=== PATIENT | female | born 1950 | race Caucasian/White ===

== ENCOUNTER 2017-09-09 01:15 | Inpatient (IN) | payer OTHER, MEDICARE ==
[2017-09-09] VITALS (25 sets, daily range): BP systolic 114–198; BP diastolic 51–83; PULSE 68–89; RESP 15; TEMP 98.3–99.5; O2SAT 97–100
[~2017-09-09] VITALS: Ht 152.4 cm; Wt 70.0 kg
--- NOTE | 2017-09-09 01:35 | RADRPT ---
EXAM DATE/TIME: 09/09/2017 01:22 [facility] COMPARISON: No previous studies available for comparison. INDICATIONS : Trauma alert, fall. MEDICAL HISTORY : None. SURGICAL HISTORY : None. ENCOUNTER: Initial ACUITY: 1 day PAIN SCORE: Non-responsive. LOCATION: Bilateral chest FINDINGS: The lungs are symmetrically aerated and clear. No evidence of pneumothorax. ET tube tip well above the guillaume. Gastric tube tip and side-port project within the stomach. Both hemidiaphragms are well delineated. Multiple hemoclips in the right axilla. CONCLUSION: The lungs are clear. No evidence of pneumothorax. Amador Feldman MD on September 09, 2017 at 1:33 Board Certified Radiologist. This report was verified electronically.
[2017-09-09 01:39] LABS: I-STAT POTASSIUM 3.4 MMOL/L (3.5-4.9)
[2017-09-09 01:42] LABS: AUTOMATED NEUTROPHIL # 8.3 TH/MM3 (1.8-7.7); BASOPHIL % 0.3 % (0.0-2.0); HEMATOCRIT 25.7 % (35.0-46.0); LYMPH % 4.9 % (9.0-44.0); LYMPHOCYTE # 0.5 TH/MM3 (1.0-4.8); MEAN CELL VOLUME 97.7 FL (80.0-100.0); MEAN CORPUSCULAR HGB CONC 33.7 % (32.0-36.0); MONO % 11.7 % (0.0-8.0); NEUT % 83.1 % (16.0-70.0); PLATELET COUNT 71 TH/MM3 (150-450); RED BLOOD COUNT 2.63 MIL/MM3 (4.00-5.30); RED CELL DISTRIBUTION WIDTH 15.7 % (11.6-17.2)
--- NOTE | 2017-09-09 01:43 | PD ---
HPI Chief Complaint: Trauma (Alert) Time Seen by Provider: 01:33 Travel History International Travel<30 days: No Contact w/Intl Traveler<30days: No (the patient's travel history is unable to be obtained) History of Present Illness HPI The patient is a 67 year old female who presents to the [facility] emergency department with a history of being called by the trauma surgeon as a trauma alert prior to arrival. He called the patient as a level I trauma alert after he was called to accept the patient in transfer eyes [facility] in [facility] related to a fall in which she sustained an intracranial hemorrhage. The patient according to the record at [facility] is on aspirin and Plavix. The patient was seen earlier yesterday related to a fall and at that time had a CT scan of the brain that was negative. The patient then fell again after going home. According to the record the patient initially fell forward the first time striking her head and has right-sided forehead contusion associated with abrasion, and then the patient fell backwards the second time striking the back of her head. The patient had complained of headache and neck pain. The patient proceeded to have intractable nausea and vomiting and was intubated to protect her airway. At the other facility the patient was reportedly given morphine for pain, Zofran for nausea. With intractable nausea the patient was given Phenergan. The patient was then intubated with RSI and given etomidate and succinylcholine. The patient has an endotracheal tube in place on arrival. The patient is moving her extremities in a purposeful way and attempting to pull out the endotracheal tube. The patient reportedly did not receive an update her tetanus or antibiotic for wound prophylaxis. The patient is noted on arrival to have a skin tear to the left forearm. The patient is noted to have multiple areas of bruising to her extremities in various stages of healing. The patient is also noted to have swelling of the right upper extremity which is reportedly chronic related to a history of breast cancer and lymph node resection. As the patient is intubated, the patient's history is obtained from reviewing the record from [facility]. [facility] Past Medical History Narrative Medical The patient's past medical history is significant for breast cancer, hypothyroid disorder, hypertension, congestive heart failure that is post aortic valve replacement, hyperlipidemia, acid reflux. Past Surgical History Narrative Surgical The patient's past surgical history is significant for an aortic valve replacement, lymph node resection right axilla related to breast cancer. Social History Alcohol Use: No Tobacco Use: No Substance Use: No Allergies-Medications (Allergen,Severity, Reaction): Coded Allergies: No Allergy Information Available (Unverified , 09/09/17) n Comments The patient has a reported allergy to codeine. Narrative Medication The patient's medications include a Breo inhaler, metoprolol, [place], low-dose aspirin daily, atorvastatin, he is prone, fully [place], levothyroxine, lisinopril, metformin, Singulair, can't appraisal, spironolactone, venlafaxine. Review of Systems ROS Limitations: Intubated Physical Exam Narrative General: The patient is a well-developed well-nourished female, intubated prior to arrival, with purposeful movements attempting to remove the endotracheal tube on arrival. The patient is brought in on a back board in full c-spine immobilization by emergency services. Head and Neck exam: Head is normocephalic, evidence of trauma with swelling along the right side of the forehead with ecchymosis noted an overlying abrasion. No facial bone tenderness or increased facial bone mobility noted on palpation. Eyes: Pupils are equal round and reactive to light and 6 mm bilaterally. The patient has not following commands. The patient's extraocular motion testing was unable to be assessed. Nose: Midline septum with pink mucous membranes Mouth: Moist mucus membranes. Posterior oropharynx is unable to be fully visualized as the patient has endotracheal tube in place. Neck: The patient is immobilized in a cervical collar. No tracheal deviation. The trachea appears midline. Cardiovascular: Regular rate and rhythm without murmurs, gallops, or rubs. Lungs: Clear to auscultation bilaterally being assisted by bag valve endotracheal tube with spontaneous breathing also noted. No wheezes, rhonchi, or rales. No chest wall tenderness to palpation. No erythema or ecchymosis noted. No crepitus, step off, or flail segment noted. Abdomen: Soft, without tenderness to palpation in all 4 quadrants of the abdomen. No guarding, rebound, or rigidity. No erythema or ecchymosis noted. Extremities: No instability or pain noted on pelvic rock. No clubbing, cyanosis , or edema except in the right upper extremity where she has edema noted most prominent in the right forearm. 2+ pulses in all 4 extremities. No extremity tenderness or deformity noted on palpation or passive range of motion. The patient on examination of her extremities has bruising on all of her extremities that are in various stages of healing. Neurologic Exam: The patient on arrival is noted to have purposeful motor activity with her left upper extremity. The patient's right upper extremity has soft restraints in place. Skin Exam: No rash noted. Skin is warm and dry. The patient is noted on examination to have the skin tear involving the left lateral forearm. On examination of the right groin, the patient has a triple lumen catheter noted to be in place. Data Data Last Documented VS Vital Signs Date Time Temp Pulse Resp B/P (MAP) Pulse Ox O2 Delivery O2 Flow Rate FiO2 09/09/17 01:36 99 100 09/09/17:16 15.00 Orders Orders I-Stat Profile (09/09/17:24) I-Stat Creatinine (09/09/17) Complete Blood Count With Diff (09/09/17) Prothrombin Time / Inr (Pt) (09/09/17) Act Partial Throm Time (Ptt) (09/09/17:) Type And Screen (09/09/17) Fibrinogen (09/09/17) Chest, Single Ap (09/09/17) Pelvis, Ap Only (Routine) (09/09/17:24) Ct Brain W/O Iv Contrast(Rout) (09/09/17:24) Ct Cerv Spine W/O Contrast (09/09/17) Ct Abd/Pel W Iv Contrast(Rout) (09/09/17:24) Ct Thorax/ Chest W Iv Contrast (09/09/17:24) Ct Facial Bones W/O Iv Cont (09/09/17:24) Iv Access Insert/Monitor (09/09/17) Ecg Monitoring (09/09/17) Oximetry (09/09/17:24) Oxygen Administration (09/09/17:24) Fentanyl Inj (Fentanyl Inj) (09/09/17:25) Admit Order (Ed Use Only) (09/09/17:47) Iohexol 350 Inj (Omnipaque 350 Inj) (09/09/17 01:48) Labs Laboratory Tests Test 09/09/17 01:25 White Blood Count 10.0 TH/MM3 Red Blood Count 2.63 MIL/MM3 Hemoglobin 8.7 GM/DL Bedside Hemoglobin 8.5 G/DL Hematocrit 25.7 % Bedside Hematocrit 25.0 % Mean Corpuscular Volume 97.7 FL Mean Corpuscular Hemoglobin 33.0 PG Mean Corpuscular Hemoglobin Concent 33.7 % Red Cell Distribution Width 15.7 % Platelet Count 71 TH/MM3 Mean Platelet Volume 11.7 FL Neutrophils (%) (Auto) 83.1 % Lymphocytes (%) (Auto) 4.9 % Monocytes (%) (Auto) 11.7 % Eosinophils (%) (Auto) 0.0 % Basophils (%) (Auto) 0.3 % Neutrophils # (Auto) 8.3 TH/MM3 Lymphocytes # (Auto) 0.5 TH/MM3 Monocytes # (Auto) 1.2 TH/MM3 Eosinophils # (Auto) 0.0 TH/MM3 Basophils # (Auto) 0.0 TH/MM3 CBC Comment AUTO DIFF Differential Comment AUTO DIFF CONFIRMED Platelet Estimate LOW Platelet Morphology Comment ENLARGED Prothrombin Time 12.5 SEC Prothromb Time International Ratio 1.2 RATIO Activated Partial Thromboplast Time 22.4 SEC Fibrinogen 301 mg/dL Bedside Sodium 132 MMOL/L Bedside Potassium 3.4 MMOL/L Bedside Chloride 88 MMOL/L Bedside Blood Urea Nitrogen 4 MG/DL Bedside Creatinine 0.7 MG/DL Bedside Glucose 150 MG/DL [facility] Medical Screen Exam Complete: Yes Emergency Medical Condition: Yes Medical Record Reviewed: Yes EKG Prior to Arrival: Yes Interpretation(s) Last Impressions Pelvis X-Ray 09/09/17123 Signed Impressions: Service Date/Time: Saturday, September 09, 2017 01:22 - CONCLUSION: No fracture seen. Amorphous calcification superior to the left greater trochanter is of uncertain significance. CT is pending. Amador Feldman MD Maxillofacial CT 09/09/17123 Signed Impressions: Service Date/Time: Saturday, September 09, 2017 01:32 - CONCLUSION: 1. No facial bone fracture seen. 2. Mild ethmoid sinus disease. Amador Feldman MD Head CT 09/09/17123 Signed Impressions: Service Date/Time: Saturday, September 09, 2017 01:32 - CONCLUSION: 1. Evidence of closed head injury with 1 cm right subdural hematoma extending from the high convexity, subarachnoid blood along the right tentorium and interhemispheric fissure, right hemispheric edema with 3 mm midline shift towards the left, and intraventricular blood in the left occipital horn. 2. Right frontoparietal and right occipital scalp hematomas. No skull fracture seen. Amador Feldman MD Chest X-Ray 09/09/17123 Signed Impressions: Service Date/Time: Saturday, September 09, 2017 01:22 - CONCLUSION: The lungs are clear. No evidence of pneumothorax. Amador Feldman MD Chest CT 09/09/17123 Signed Impressions: Service Date/Time: Saturday, September 09, 2017 01:44 - CONCLUSION: 1. No evidence pneumothorax. 2. Bibasilar atelectasis. 3. Focal 12 mm opacity lateral left mid lung may represent pulmonary contusion, focal infiltrate, or mass. Recommend followup scan to assure resolution. Amador Feldman MD Cervical Spine CT 09/09/17123 Signed Impressions: Service Date/Time: Saturday, September 09, 2017 01:32 - CONCLUSION: No evidence of compression deformity or spondylolisthesis. Amador Feldman MD Abdomen/Pelvis CT 09/09/17123 Signed Impressions: Service Date/Time: Saturday, September 09, 2017 01:44 - CONCLUSION: Negative trauma CT abdomen/pelvis with contrast. Amador Feldman MD Head CT 09/09/17 0000 Signed Impressions: Service Date/Time: Saturday, September 09, 2017 08:44 - CONCLUSION: No significant change. Stable small subdural hematomas. Small amount of intraventricular hemorrhage noted. Aditya Whitehead MD Differential Diagnosis Intracranial trauma, versus cervical spine trauma, versus intrathoracic trauma, versus intra-abdominal trauma, versus pelvic injury Narrative Course During the course of the patients emergency department visit, the patient was placed on a cardiac cath tech with oximetry and frequent blood pressure monitoring. The patient reportedly had not had any blood work done since her first evaluation yesterday, therefore an i-STAT with creatinine was ordered per the recommendations of the trauma surgeon, Dr. Briggs. He also recommended that the patient undergo repeat CT scan of the head, neck,and CT scan of the thorax, abdomen and pelvis. The patient was initially provided an update her tetanus as this was not done previously, Ancef 2 g IV. As the patient was awakening and attempting to pull out the endotracheal tube the patient's propofol drip was increased. The patient was given rocuronium 100mg IV. The patients laboratory studies were reviewed and remarkable for an i-STAT with creatinine that reveals a BUN of 4, creatinine 0.7, hemoglobin 8.5. At the other facility the patient was noted to have a urinalysis that was unremarkable , CBC with a white count of 4.9, hemoglobin 9.8, platelets 84, lymphocytes 16.4 , PTT 11.7, INR 1.11, PTT 25.8. CT scan of the C-spine at the other facility showed no acute abnormality. Degenerative changes noted. CT scan of the brain at the other facility shows a new intracranial hemorrhage noted with subdural hemorrhage over the right side convexity along the falx cerebri and overlying the right side tentorium, mild right to left shift now identified. No evidence for skull fracture. New right parietal scalp injury noted. Radiology studies were reviewed and remarkable for a chest x-ray that shows an endotracheal tube in good position. Pelvis x-ray shows no acute abnormality, femoral line noted to be in place in the right side. The patient was accompanied to CT by the trauma surgeon who assumed care of the patient. The patients results were discussed with the patient, including the plan of care. I explained that further testing and/ or monitoring is indicated based on the patients history, examination, and/ or laboratory findings. Therefore, I recommended admission for additional evaluation. The patient expressed understanding and was agreeable with this plan. The patient was admitted to the hospital in guarded condition and sent to a bed under the care of the trauma service. Trauma Alert - Level One Trauma Alert Level One: Full trauma team activate, Patient evaluated, Trauma surgeon summoned Time Surgeon Summoned: 23:31 (Surgeon asked to come in) Physician Communication The patient's case including history, pertinent physical examination findings, and laboratory studies were discussed with Dr. Briggs. It was agreed that the patient would be admitted to the trauma service. Diagnosis Diagnosis: Primary Impression: Traumatic subdural hematoma Qualified Codes: S06.5X9A - Traumatic subdural hemorrhage with loss of consciousness of unspecified duration, initial encounter Admitting Physician Requests: Admit Torrie Mercado MD Sep 09, 2017 01:42
[2017-09-09 01:44] LABS: HEMO FLAGS AUTO DIFF
[2017-09-09 01:48] LABS: APTT (PATIENT) 22.4 SEC (24.3-30.1); INTERNATIONAL NORMALIZED RATIO 1.2 RATIO; PROTHROMBIN TIME - PATIENT 12.5 SEC (9.8-11.6)
[2017-09-09] MEDS ORDERED: IOHEXOL 350 MG/ML 10 ML VIAL (for RAD DIAG) IVCONTRAST ONE (01:48)
--- NOTE | 2017-09-09 01:59 | RADRPT ---
EXAM DATE/TIME: 09/09/2017 01:22 [facility] COMPARISON: No previous studies available for comparison. INDICATIONS : Trauma alert, fall. MEDICAL HISTORY : None. SURGICAL HISTORY : None. ENCOUNTER: Initial ACUITY: 1 day PAIN SCORE: Non-responsive. LOCATION: Bilateral pelvis FINDINGS: Single frontal view of the pelvis demonstrates the bony pelvic ring to be grossly intact. Right cath eter tip projects at the L5 level. There is an amorphous calcific density seen superior to the left greater trochanter which measures 11 x 4 mm CONCLUSION: No fracture seen. Amorphous calcification superior to the left greater trochanter is of uncertain si gnificance. CT is pending. Amador Feldman MD on September 09, 2017 at 1:56 Board Certified Radiologist. This report was verified electronically.
[2017-09-09] MEDS ORDERED: SENNOSIDES 8.6 MG TAB PO PRN (02:00)
[2017-09-09] MEDS ORDERED: fentaNYL DRIP 250 ML IV PRN (02:00)
[2017-09-09] MEDS ORDERED: LACTULOSE SYRUP 20 GM/30 ML CUP PO PRN (02:00)
[2017-09-09] MEDS ORDERED: CHLORHEXIDINE GLUCONATE 2 % 1 PACK (2 CLOTHS) TOP PRN (02:00)
[2017-09-09] MEDS ORDERED: BISACODYL 10 MG SUPP RECTAL PRN (02:00)
[2017-09-09] MEDS: FAMOTIDINE 20 MG/2 ML VIAL IV PUSH SCH ×3 (02:00→20:33)
[2017-09-09] MEDS ORDERED: MAGNESIUM HYDROXIDE SUSP 30 ML CUP PO PRN (02:00)
[2017-09-09] MEDS ORDERED: MISCELLANEOUS NURSING INFORMATION XX SCH (02:00)
--- NOTE | 2017-09-09 02:04 | RADRPT ---
EXAM DATE/TIME: 09/09/2017 01:32 [facility] COMPARISON: No previous studies available for comparison. INDICATIONS : Trauma alert; fall RADIATION DOSE: 55.02 CTDIvol (mGy) MEDICAL HISTORY : Non-responsive. SURGICAL HISTORY : Non-responsive. ENCOUNTER: Initial ACUITY: 1 day PAIN SCALE: Non-responsive LOCATION: cranial TECHNIQUE: Multiple contiguous axial images were obtained of the head. Using automated exposure control and adj ustment of the mA and/or kV according to patient size, radiation dose was kept as low as reasonably a chievable to obtain optimal diagnostic quality images. DICOM format image data is available electro nically for review and comparison. FINDINGS: CEREBRUM: Abnormal. There is a right sided subdural hematoma which measures up to 1 cm in size and extends fro m the low convexity to the high convexity. There is also hyperdensity tracking along the right tento rium. Intraventricular blood in the left occipital horn. There is evidence of mass effect/edema in the right temporal lobe with narrowing of the right temporal horn. There is 3 mm midline shift of th e intraventricular septum towards the left. A few scattered areas of acute blood products along the anterior tentorium. No intraparenchymal hemorrhage seen. POSTERIOR FOSSA: The cerebellum and brainstem are intact. The 4th ventricle is midline. The cerebellopontine angle i s unremarkable. EXTRACRANIAL: The visualized portion of the orbits is intact. SKULL: Scalp hematoma right frontal and parietal region measuring up to 7 mm in thickness. Small hematoma i n the right low convexity occipital region. The calvaria is intact. No evidence of skull fracture. CONCLUSION: 1. Evidence of closed head injury with 1 cm right subdural hematoma extending from the high convexity , subarachnoid blood along the right tentorium and interhemispheric fissure, right hemispheric edema with 3 mm midline shift towards the left, and intraventricular blood in the left occipital horn. 2. Right frontoparietal and right occipital scalp hematomas. No skull fracture seen. Amador Feldman MD on September 09, 2017 at 1:58 Board Certified Radiologist. This report was verified electronically.
[2017-09-09 02:08] LABS: PLATELET ESTIMATE SMEAR LOW (NORMAL); PLATELET MORPHOLOGY ENLARGED (NORMAL); SCAN/DIFF AUTO DIFF CONFIRMED
--- NOTE | 2017-09-09 02:09 | HHI.HP ---
History of Present Illness Primary Care Physician Zachery Mendiola MD Admission Diagnosis Intracranial hemorrhage, thrombocytopenia, anemia Diagnoses: History of Present Illness 67 y.o female transfer from -with SDH-on plavix /ASA-s/p AVR history of breast CA fell today was seen in the ER ,however patient signed AMA and fell again on her way back home,agitated in the ER with intractable vomiting -CT head showed SDH with shift,patient was intubated for transfer-on arrival HD normal,purposeful movement towards the tube-brought to CT scan for further workup-multiple bruises extremities,trunk noted. Review of Systems ROS Limitations: Intubated, Altered Mental Status, Unresponsive Past Family Social History Allergies: Coded Allergies: No Allergy Information Available (Unverified , 09/09/17) n Past Medical History CHF,hypothyroidism Past Surgical History AVR Reported Medications ASA,plavix Family History none Social History no ETOH Physical Exam Physical Exam GENERAL: This is a well-nourished, well-developed patient, in moderate apparent distress. SKIN: multiple ecchymoses . Cool and dry. HEAD: Atraumatic. Normocephalic. EYES: Pupils equal round and reactive. E. ENT: Nose without bleeding. Uvula midline. Airway patent. NECK: Trachea midline. No JVD or lymphadenopathy. Supple, CARDIOVASCULAR: Regular rate and rhythm without murmurs, gallops, or rubs. RESPIRATORY: Clear to auscultation. Breath sounds equal bilaterally. GASTROINTESTINAL: Abdomen soft, nondistended.No guarding. MUSCULOSKELETAL: Extremities without clubbing, cyanosis, or edema. No joint tenderness, effusion, or edema noted.large skin tear left forearm. NEUROLOGICAL: GCS 8t Laboratory Laboratory Tests Test 09/09/17 01:25 White Blood Count 10.0 Red Blood Count 2.63 Hemoglobin 8.7 Bedside Hemoglobin 8.5 Hematocrit 25.7 Bedside Hematocrit 25.0 Mean Corpuscular Volume 97.7 Mean Corpuscular Hemoglobin 33.0 Mean Corpuscular Hemoglobin Concent 33.7 Red Cell Distribution Width 15.7 Platelet Count 71 Mean Platelet Volume 11.7 Neutrophils (%) (Auto) 83.1 Lymphocytes (%) (Auto) 4.9 Monocytes (%) (Auto) 11.7 Eosinophils (%) (Auto) 0.0 Basophils (%) (Auto) 0.3 Neutrophils # (Auto) 8.3 Lymphocytes # (Auto) 0.5 Monocytes # (Auto) 1.2 Eosinophils # (Auto) 0.0 Basophils # (Auto) 0.0 CBC Comment AUTO DIFF Prothrombin Time 12.5 Prothromb Time International Ratio 1.2 Activated Partial Thromboplast Time 22.4 Fibrinogen 301 Bedside Sodium 132 Bedside Potassium 3.4 Bedside Chloride 88 Bedside Blood Urea Nitrogen 4 Bedside Creatinine 0.7 Bedside Glucose 150 Result Diagram: 09/09/17124 Imaging Last 24 hours Impressions Chest X-Ray 09/09/17123 Signed Impressions: Service Date/Time: Saturday, September 09, 2017 01:22 - CONCLUSION: The lungs are clear. No evidence of pneumothorax. MD Chan Garces VTE Risk Assessment Capmauricio VTE Risk Assessment: Mod/High Risk (score >= 2) VTE Pharm Contraindication: Active bleeding Paulierini Risk Assessment Model Point Value = 1 Point Value = 2 Point Value = 3 Point Value = 5 Age 41-60 Minor surgery BMI > 25 kg/m2 Swollen legs Varicose veins or History of unexplained or recurrent spontaneous Oral contraceptives or hormone replacement Sepsis (< 1 month) Serious lung disease, including pneumonia (< 1 month) Abnormal pulmonary function Acute myocardial infarction Congestive heart failure (< 1 month) History of inflammatory bowel disease Medical patient at bed rest Age 61-74 Arthroscopic surgery Major open surgery (> 45 min) Laparoscopic surgery (> 45 min) Malignancy Confined to bed (> 72 hours) Immobilizing plaster cast Central venous access Age >= 75 History of VTE Family history of VTE Factor V Leiden Prothrombin [id number] Lupus anticoagulant Anticardiolipin antibodies Elevated serum homocysteine Heparin-induced thrombocytopenia Other congenital or acquired thrombophilia Stroke (< 1 month) Elective arthroplasty Hip, pelvis, or leg fracture Acute spinal cord injury (< 1 month) Prophylaxis Regimen Total Risk Factor Score Risk Level Prophylaxis Regimen 0-1 Low Early ambulation 2 Moderate Order ONE of the following: *Sequential Compression Device (SCD) *Heparin 5000 units SQ BID 3-4 Higher Order ONE of the following medications: *Heparin 5000 units SQ TID *Enoxaparin/Lovenox 40 mg SQ daily (WT < 150 kg, CrCl > 30 mL/min) *Enoxaparin/Lovenox 30 mg SQ daily (WT < 150 kg, CrCl > 10-29 mL/min) *Enoxaparin/Lovenox 30 mg SQ BID (WT < 150 kg, CrCl > 30 mL/min) AND/OR *Sequential Compression Device (SCD) 5 or more Highest Order ONE of the following medications: *Heparin 5000 units SQ TID (Preferred with Epidurals) *Enoxaparin/Lovenox 40 mg SQ daily (WT < 150 kg, CrCl > 30 mL/min) *Enoxaparin/Lovenox 30 mg SQ daily (WT < 150 kg, CrCl > 10-29 mL/min) *Enoxaparin/Lovenox 30 mg SQ BID (WT < 150 kg, CrCl > 30 mL/min) AND *Sequential Compression Device (SCD) Assessment and Plan Assessment and Plan SDH with shift purposeful movement prior to sedation admit ICU d/w NS at 215 am neuroprotection plt for thrombocytopenia prbc for hgb 8.1 GI prophylaxis ABG Dee Pringle MD Sep 09, 2017 02:09
--- NOTE | 2017-09-09 02:11 | RADRPT ---
EXAM DATE/TIME: 09/09/2017 01:32 [facility] COMPARISON: No previous studies available for comparison. INDICATIONS : Trauma alert; fall. RADIATION DOSE: 21.60 CTDIvol (mGy) MEDICAL HISTORY : Non-responsive. SURGICAL HISTORY : Non-responsive. ENCOUNTER: Initial ACUITY: 1 day PAIN SCALE: Non-responsive LOCATION: Bilateral neck TECHNIQUE: Volumetric scanning of the cervical spine was performed. Multiplanar reconstructions in the sagittal, coronal and oblique axial planes were performed. Using automated exposure control and adjustment o f the mA and/or kV according to patient size, radiation dose was kept as low as reasonably achievable to obtain optimal diagnostic quality images. DICOM format image data is available electronically f or review and comparison. FINDINGS: There is normal alignment of the vertebral bodies of the cervical spine preservation of vertebral bod y height. The posterior elements are normal alignment without evidence of locked or perched facets. The spinous processes are intact. Atlantoaxial articulation is intact. ET tube and gastric tube ar e seen in the prevertebral region. C2-C3: No fracture seen. The bony neural foramina are patent. C3-C4: No fracture seen. The bony neural foramina are patent. C4-C5: No fracture seen. The bony neural foramina are patent. C5-C6: No fracture seen. The bony neural foramina are patent. C6-C7: No fracture seen. The bony neural foramina are patent. C7-T1: No fracture seen. The bony neural foramina are patent. CONCLUSION: No evidence of compression deformity or spondylolisthesis. Amador Feldman MD on September 09, 2017 at 2:07 Board Certified Radiologist. This report was verified electronically.
--- NOTE | 2017-09-09 02:13 | RADRPT ---
EXAM DATE/TIME: 09/09/2017 01:32 [facility] COMPARISON: No previous studies available for comparison. INDICATIONS : Trauma alert; fall RADIATION DOSE: 58.10 CTDIvol (mGy) MEDICAL HISTORY : Non-responsive. SURGICAL HISTORY : Non-responsive. ENCOUNTER: Initial ACUITY: 1 day PAIN SCORE: Non-responsive LOCATION: Bilateral facial TECHNIQUE: Volumetric scanning of the facial bones was performed. Using automated exposure control and adjustme nt of the mA and/or kV according to patient size, radiation dose was kept as low as reasonably achiev able to obtain optimal diagnostic quality images. DICOM format image data is available electronicall y for review and comparison. FINDINGS: Right frontal parietal scalp thickening. No radiopaque foreign bodies. The nasal bone, zygomatic ar ches, maxilla, mandible, and bony orbital structures are grossly intact. No fracture seen. No fract ure recesses are symmetric and deep. Mild mucosal thickening in the ethmoid sinuses. The frontal, s phenoid, and maxillary sinuses are clear. CONCLUSION: 1. No facial bone fracture seen. 2. Mild ethmoid sinus disease. Amador Feldman MD on September 09, 2017 at 2:09 Board Certified Radiologist. This report was verified electronically.
[2017-09-09 02:17] LABS: BLOOD GAS BASE EXCESS 3.5 mmol/L (-2-2); BLOOD GAS CARBOXYHEMOGLOBIN 1.8 % (0-4); BLOOD GAS HCO3 26 mmol/L (22-26); BLOOD GAS METHEMOGLOBIN 0.9 % (0-2); BLOOD GAS O2 HGB SATURATION 98 % (90-100); BLOOD GAS OXYGEN CONTENT 12.3 Vol % (12.0-20.0); BLOOD GAS PCO2 30 mmHg (38-42); BLOOD GAS PO2 525 mmHg (61-120); BLOOD GAS TOTAL HGB 7.9 G/DL (12.0-16.0); TEMP CORR TO 98.6
--- NOTE | 2017-09-09 02:17 | RADRPT ---
EXAM DATE/TIME: 09/09/2017 01:44 [facility] COMPARISON: No previous studies available for comparison. INDICATIONS : Trauma alert; fall IV CONTRAST: 100 cc Omnipaque 350 (iohexol) IV ; Cumulative dose for multiple exams. ORAL CONTRAST: No oral contrast ingested. RADIATION DOSE: 12.10 CTDIvol (mGy) MEDICAL HISTORY : Non-responsive. SURGICAL HISTORY : Non-responsive. ENCOUNTER: Initial ACUITY: 1 day PAIN SCALE: Non-responsive LOCATION: Bilateral abdomen. TECHNIQUE: Volumetric scanning of the abdomen and pelvis was performed. Using automated exposure control and ad justment of the mA and/or kV according to patient size, radiation dose was kept as low as reasonably achievable to obtain optimal diagnostic quality images. DICOM format image data is available electro nically for review and comparison. FINDINGS: LOWER LUNGS: The visualized lower lungs are clear. LIVER: Homogeneous density without lesion. There is no dilation of the biliary tree. Cholecystectomy. SPLEEN: Normal size without lesion. PANCREAS: Within normal limits. KIDNEYS: Normal in size and shape. There is no mass, stone or hydronephrosis. ADRENAL GLANDS: Within normal limits. VASCULAR: There is no aortic aneurysm. Diffuse wall calcification in the aorta and iliac vessels. BOWEL/MESENTERY: Gastric tube tip within the stomach. No dilated loops of small or large bowel. No free fluid. ABDOMINAL WALL: Within normal limits. RETROPERITONEUM: There is no lymphadenopathy. BLADDER: Tobar catheter in a nondistended urinary bladder. REPRODUCTIVE: Within normal limits. INGUINAL: There is no lymphadenopathy or hernia. Right femoral catheter ascends to the proximal right iliac ve in. MUSCULOSKELETAL: No fracture seen. CONCLUSION: Negative trauma CT abdomen/pelvis with contrast. Amador Feldman MD on September 09, 2017 at 2:12 Board Certified Radiologist. This report was verified electronically.
[2017-09-09 02:19] LABS: CRITICAL VALUE YES; OXYGEN DEVICE VENTILATOR
[2017-09-09 02:20] LABS: DRAW SITE LT RADIAL; FIO2 100 %
[2017-09-09 02:21] LABS: NUMBER OF ARTERIAL PUNCTURES 1; STAT NO; ULNAR PULSE PRESENT
--- NOTE | 2017-09-09 02:26 | RADRPT ---
EXAM DATE/TIME: 09/09/2017 01:44 [facility] COMPARISON: CHEST SINGLE AP, September 09, 2017, 1:22. INDICATIONS : Trauma alert; fall IV CONTRAST: 100 cc Omnipaque 350 (iohexol) IV ; Cumulative dose for multiple exams. RADIATION DOSE: 12.10 CTDIvol (mGy) ; Combined studies - Thorax/Abdomen/Pelvis MEDICAL HISTORY : Non-responsive. SURGICAL HISTORY : Non-responsive. ENCOUNTER: Initial ACUITY: 1 day PAIN SCALE: Non-responsive LOCATION: Bilateral chest TECHNIQUE: Volumetric scanning of the chest was performed. Using automated exposure control and adjustment of t he mA and/or kV according to patient size, radiation dose was kept as low as reasonably achievable to obtain optimal diagnostic quality images. DICOM format image data is available electronically for review and comparison. Follow-up recommendations for detected pulmonary nodules are based at a minimum on nodule size and pa tient risk factors according to Fleischner Society Guidelines. FINDINGS: LUNGS: No evidence of pneumothorax. Mild bibasilar atelectasis or consolidation in the dependent lower lobe s measuring up to 1 cm in thickness. There is a solitary ill-defined opacity measuring 12 mm in the lateral left midlung (image #23). There is also a 5 mm calcified granuloma in the lateral left midlu ng. PLEURA: There is no pleural thickening or pleural effusion. MEDIASTINUM: The heart and great vessels demonstrate no acute abnormality. Stent in the ascending aorta. There i s no mediastinal or hilar lymphadenopathy. AXILLAE: Within normal limits. No lymphadenopathy. SKELETAL: No fracture seen. MISCELLANEOUS: ET tube tip approximately 2 cm above the guillaume. Gastric tube traverses the field of view. CONCLUSION: 1. No evidence pneumothorax. 2. Bibasilar atelectasis. 3. Focal 12 mm opacity lateral left mid lung may represent pulmonary contusion, focal infiltrate, or mass. Recommend followup scan to assure resolution. Amador Feldman MD on September 09, 2017 at 2:16 Board Certified Radiologist. This report was verified electronically.
[2017-09-09] MEDS: levETIRAcetam INJ 500 MG in SODIUM CHLORIDE 0.9% INJ 100 ML IV SCH ×3 (02:29→20:32)
[2017-09-09] MEDS: SODIUM CHLOR 0.9% 1000 ML INJ 1,000 ML IV SCH ×2 (02:29→12:59)
[2017-09-09] MEDS: fentaNYL DRIP 250 ML IV PRN ×2 (02:30→12:59)
[2017-09-09] MEDS ORDERED: DILTIAZEM 125 MG/NS 100 ML IV PRN ×2 (02:30)
--- NOTE | 2017-09-09 03:36 | PD.CONS ---
HPI Service Critical Care Medicine Consult Requested By Primary Care Physician Zachery Mendiola MD History of Present Illness 67 year old female presents as a transfer from [facility] in [facility] related to a fall in which she sustained an intracranial hemorrhage. The patient according to the record at [facility] is on aspirin and Plavix. The patient was seen earlier yesterday related to a fall and at that time had a CT scan of the brain that was negative. The patient then fell again after going home. According to the record the patient initially fell forward the first time striking her head and has right-sided forehead contusion associated with abrasion, and then the patient fell backwards the second time striking the back of her head. The patient had complained of headache and neck pain. The patient proceeded to have intractable nausea and vomiting and was intubated to protect her airway. At the other facility the patient was reportedly given morphine for pain, Zofran for nausea. With intractable nausea the patient was given Phenergan. The patient was then intubated with RSI and given etomidate and succinylcholine. The patient has an endotracheal tube in place on arrival. She is moving all her extremities in a purposeful way and attempting to pull out the endotracheal tube. Review of Systems ROS Unobtainable patient is sedated and intubated Past Family Social History Allergies: Coded Allergies: No Allergy Information Available (Unverified , 09/09/17) n Past Medical History Breasts cancer, Hypothyroid disorder, Hypertension Congestive heart failure Status post aortic valve replacement Dyslipidemia GERD Past Surgical History Aortic valve replacement Lymph node resection in the right axilla related to breast cancer Active Ordered Medications Current Medications Medications (Trade) Dose Ordered Sig/Tonja Route PRN Reason Start Time Stop Time Status Last Admin Dose Admin Sodium Chloride 1,000 ml @ 100 mls/hr Q10H IV 09/09/17 01:55 09/09/17 02:29 Famotidine (Pepcid Inj) 20 mg Q12HR IV PUSH 09/09/17 02:00 09/09/17 02:00 Miscellaneous Information 1 Q361D XX 09/09/17 02:00 09/09/17 02:00 Chlorhexidine Gluconate (Chlorhexidine 2% Cloth) 3 pack Taper DAILY@04 TOP 09/09/17 04:00 09/05/18 03:59 Chlorhexidine Gluconate (Chlorhexidine 2% Cloth) 3 pack UNSCH PRN TOP HYGIENIC CARE 09/09/17 02:00 Senna/Docusate Sodium (Yamilet-Colace) 1 tab BID PO 09/09/17 09:00 Magnesium Hydroxide (Milk Of Magnesia Liq) 30 ml Q12H PRN PO Mild constipation 09/09/17 02:00 Sennosides (Senokot) 17.2 mg Q12H PRN PO Moderate constipation 09/09/17 02:00 Bisacodyl (Dulcolax Supp) 10 mg DAILY PRN RECTAL SEVERE CONSITIPATION/ IF NPO 09/09/17 02:00 Lactulose (Lactulose Liq) 30 ml DAILY PRN PO SEVERE CONSITIPATION/ IF PO 09/09/17 02:00 Propofol 100 ml @ 2.019 mls/ hr TITRATE PRN IV SEDATION 09/09/17 02:00 Fentanyl Citrate 250 ml @ 5 mls/hr TITRATE PRN IV SEDATION 09/09/17 02:15 09/09/17 02:30 Diltiazem HCl 125 mg/Sodium Chloride 125 ml @ 5 mls/hr TITRATE PRN IV Tachycardia 09/09/17 02:30 Levetriacetam 500 mg/Sodium Chloride 105 ml @ 420 mls/hr Q12HR IV 09/09/17 02:30 09/09/17 02:29 Family History Unable to obtain Social History Negative for alcohol, tobacco, or illicit drug abuse Physical Exam Vital Signs Vital Signs Date Time Temp Pulse Resp B/P (MAP) Pulse Ox O2 Delivery O2 Flow Rate FiO2 09/09/17 02:01 100 100 09/09/17 01:36 99 100 09/09/17 01:26 100 100 09/09/17 01:16 100 15.00 100 Physical Exam General: The patient is sedated and intubated, with purposeful movements attempting to remove the endotracheal tube on arrival. Head and Neck exam: Head is normocephalic, evidence of trauma with swelling along the right side of the forehead with ecchymosis noted an overlying abrasion. No facial bone tenderness or increased facial bone mobility noted on palpation. Eyes: Pupils are equal round and reactive to light and 6 mm bilaterally. The patient has not following commands. The patient's extraocular motion testing was unable to be assessed. Nose: Midline septum with pink mucous membranes Mouth: Moist mucus membranes. Posterior oropharynx is unable to be fully visualized as the patient has endotracheal tube in place. Neck: The patient is immobilized in a cervical collar. No tracheal deviation. The trachea appears midline. Cardiovascular: Regular rate and rhythm without murmurs, gallops, or rubs. Lungs: Clear to auscultation bilaterally being assisted by bag valve endotracheal tube with spontaneous breathing also noted. No wheezes, rhonchi, or rales. No chest wall tenderness to palpation. No erythema or ecchymosis noted. No crepitus, step off, or flail segment noted. Abdomen: Soft, without tenderness to palpation in all 4 quadrants of the abdomen. No guarding, rebound, or rigidity. No erythema or ecchymosis noted. Extremities: No instability or pain noted on pelvic rock. No clubbing, cyanosis , or edema except in the right upper extremity where she has edema noted most prominent in the right forearm. 2+ pulses in all 4 extremities. No extremity tenderness or deformity noted on palpation or passive range of motion. The patient on examination of her extremities has bruising on all of her extremities that are in various stages of healing. Neurologic Exam: The patient is sedated and intubated and is noted to have purposeful motor activity with her left upper extremity. Laboratory Laboratory Tests Test 09/09/17 01:25 09/09/17 02:06 White Blood Count 10.0 Red Blood Count 2.63 Hemoglobin 8.7 Bedside Hemoglobin 8.5 Hematocrit 25.7 Bedside Hematocrit 25.0 Mean Corpuscular Volume 97.7 Mean Corpuscular Hemoglobin 33.0 Mean Corpuscular Hemoglobin Concent 33.7 Red Cell Distribution Width 15.7 Platelet Count 71 Mean Platelet Volume 11.7 Neutrophils (%) (Auto) 83.1 Lymphocytes (%) (Auto) 4.9 Monocytes (%) (Auto) 11.7 Eosinophils (%) (Auto) 0.0 Basophils (%) (Auto) 0.3 Neutrophils # (Auto) 8.3 Lymphocytes # (Auto) 0.5 Monocytes # (Auto) 1.2 Eosinophils # (Auto) 0.0 Basophils # (Auto) 0.0 CBC Comment AUTO DIFF Differential Comment AUTO DIFF CONFIRMED Platelet Estimate LOW Platelet Morphology Comment ENLARGED Prothrombin Time 12.5 Prothromb Time International Ratio 1.2 Activated Partial Thromboplast Time 22.4 Fibrinogen 301 Bedside Sodium 132 Bedside Potassium 3.4 Bedside Chloride 88 Bedside Blood Urea Nitrogen 4 Bedside Creatinine 0.7 Bedside Glucose 150 Blood Gas Puncture Site LT RADIAL Blood Gas Patient Temperature 98.6 Blood Gas HCO3 26 Blood Gas Base Excess 3.5 Blood Gas Oxygen Saturation 98 Arterial Blood pH 7.55 Arterial Blood Partial Pressure CO2 30 Arterial Blood Partial Pressure O2 525 Arterial Blood Oxygen Content 12.3 Arterial Blood Carboxyhemoglobin 1.8 Arterial Blood Methemoglobin 0.9 Blood Gas Hemoglobin 7.9 Oxygen Delivery Device VENTILATOR Blood Gas Ventilator Setting SEE COMMENT Blood Gas Inspired Oxygen 100 Result Diagram: 09/09/17124 Imaging Last 24 hours Impressions Pelvis X-Ray 09/09/17123 Signed Impressions: Service Date/Time: Saturday, September 09, 2017 01:22 - CONCLUSION: No fracture seen. Amorphous calcification superior to the left greater trochanter is of uncertain significance. CT is pending. Amador Feldman MD Maxillofacial CT 09/09/17123 Signed Impressions: Service Date/Time: Saturday, September 09, 2017 01:32 - CONCLUSION: 1. No facial bone fracture seen. 2. Mild ethmoid sinus disease. Amador Feldman MD Head CT 09/09/17123 Signed Impressions: Service Date/Time: Saturday, September 09, 2017 01:32 - CONCLUSION: 1. Evidence of closed head injury with 1 cm right subdural hematoma extending from the high convexity, subarachnoid blood along the right tentorium and interhemispheric fissure, right hemispheric edema with 3 mm midline shift towards the left, and intraventricular blood in the left occipital horn. 2. Right frontoparietal and right occipital scalp hematomas. No skull fracture seen. Amador Feldman MD Chest X-Ray 09/09/17123 Signed Impressions: Service Date/Time: Saturday, September 09, 2017 01:22 - CONCLUSION: The lungs are clear. No evidence of pneumothorax. Amador Feldman MD Chest CT 09/09/17123 Signed Impressions: Service Date/Time: Saturday, September 09, 2017 01:44 - CONCLUSION: 1. No evidence pneumothorax. 2. Bibasilar atelectasis. 3. Focal 12 mm opacity lateral left mid lung may represent pulmonary contusion, focal infiltrate, or mass. Recommend followup scan to assure resolution. Amador Feldman MD Cervical Spine CT 09/09/17123 Signed Impressions: Service Date/Time: Saturday, September 09, 2017 01:32 - CONCLUSION: No evidence of compression deformity or spondylolisthesis. Amador Feldman MD Abdomen/Pelvis CT 09/09/17123 Signed Impressions: Service Date/Time: Saturday, September 09, 2017 01:44 - CONCLUSION: Negative trauma CT abdomen/pelvis with contrast. Amador Feldman MD Septic Shock Reassessment Septic shock perfusion: reassessment completed Assessment and Plan Assessment and Plan Respiratory failure - Sedated for an airway protection - Continue mechanical ventilation until neurologically improved - Vent bundle - Propofol for vent synchrony - DuoNeb's when necessary Traumatic brain injury - Neurosurgical consultation - Repeat CT head a.m. - Frequent neuro checks per ICU protocol - SBP goal less than 140 - Transfuse platelets to keep count above 100 Hypertension - Cardene drip - SBP goal less than 140 Hypothyroidism - Resume levothyroxine per home dose when available Dyslipidemia - Resume home meds when available Thrombocytopenia - Transfuse platelets to keep platelet count above 100 used to intracranial bleed GERD - IV Pepcid DVT GI prophylaxis - Teds SCDs - No pharmacological DVT prophylaxis due to ICH - Pepcid Critical Care: The total critical care time was 35 minutes. Time to perform other separately billable procedures was not included in the critical care time. Phoenix Chavez MD Sep 09, 2017 03:36
[2017-09-09] MEDS ORDERED: niCARdipine 25 MG/NS 250 ML Vial2Bag or IV room IV PRN ×2 (03:45)
[2017-09-09] MEDS: CHLORHEXIDINE GLUCONATE 2 % 1 PACK (2 CLOTHS) TOP SCH (04:00)
[2017-09-09] MEDS: PROPOFOL 1000 MG/100 ML INJ 100 ML IV PRN ×4 (05:42→20:34)
[2017-09-09] MEDS ORDERED: ceFAZolin 2 GM PREMIX 50 ML ONE (08:13)
[2017-09-09] MEDS ORDERED: THROMBIN (TOPICAL) 5,000 UNIT VIAL ONE (08:13)
[2017-09-09] MEDS ORDERED: GELFOAM SIZE 100 ONE (08:13)
[2017-09-09] MEDS ORDERED: VANCOMYCIN HCL 1000 MG VIAL ONE (08:13)
[2017-09-09] MEDS ORDERED: GENTAMICIN SULFATE 80 MG/2 ML VIAL ONE (08:14)
[2017-09-09] MEDS ORDERED: levETIRAcetam 500 MG/5 ML VIAL IV ONE (08:14)
[2017-09-09] MEDS ORDERED: FUROSEMIDE 40 MG/4 ML VIAL ONE (08:14)
[2017-09-09] MEDS ORDERED: BACITRACIN TOP OINT 15 GM TUBE ONE (08:14)
[2017-09-09] MEDS ORDERED: MANNITOL INJ 100 ML ONE (08:14)
[2017-09-09] MEDS ORDERED: SODIUM CHLOR 0.9% 250 ML INJ 250 ML ONE (08:15)
[2017-09-09] MEDS ORDERED: LIDOCAINE 1%/EPINEPHrine 1:100,000 SOLN 20 ML VIAL ONE (08:15)
--- NOTE | 2017-09-09 09:29 | RADRPT ---
EXAM DATE/TIME: 09/09/2017 08:44 [facility] COMPARISON: CT BRAIN W/O CONTRAST, September 09, 2017, 1:32. INDICATIONS : Subdural hematoma. RADIATION DOSE: 69.15 CTDIvol (mGy) MEDICAL HISTORY : Non-responsive. SURGICAL HISTORY : Non-responsive. ENCOUNTER: Subsequent ACUITY: 1 day PAIN SCALE: Non-responsive LOCATION: cranial TECHNIQUE: Multiple contiguous axial images were obtained of the head. Using automated exposure control and adj ustment of the mA and/or kV according to patient size, radiation dose was kept as low as reasonably a chievable to obtain optimal diagnostic quality images. DICOM format image data is available electro nically for review and comparison. FINDINGS: Small subdural hematomas identified in the right temporal, right parietal and interhemispheric fissur e are stable. There is no evidence of enlargement, increasing mass effect or progressing edema. Intra ventricular hemorrhage is slightly more conspicuous. No significant midline shift is seen on the current study. CONCLUSION: No significant change. Stable small subdural hematomas. Small amount of intraventricular hemorrhage noted. Aditya Whitehead MD on September 09, 2017 at 9:20 Board Certified Radiologist. This report was verified electronically.
[2017-09-09] MEDS: DOCUSATE SODIUM 50 MG/SENNA 8.6 MG TAB PO SCH ×2 (09:32→20:33)
[2017-09-09 10:26] LABS: BLOOD GAS BASE EXCESS 4.2 mmol/L (-2-2); BLOOD GAS CARBOXYHEMOGLOBIN 1.7 % (0-4); BLOOD GAS HCO3 27 mmol/L (22-26); BLOOD GAS METHEMOGLOBIN 0.9 % (0-2); BLOOD GAS O2 HGB SATURATION 98 % (90-100); BLOOD GAS OXYGEN CONTENT 13.5 Vol % (12.0-20.0); BLOOD GAS PCO2 32 mmHg (38-42); BLOOD GAS PO2 214 mmHg (61-120); BLOOD GAS TOTAL HGB 9.5 G/DL (12.0-16.0); TEMP CORR TO 98.6
[2017-09-09 10:28] LABS: CRITICAL VALUE YES; DRAW SITE LT BRACHIAL; FIO2 50 %; OXYGEN DEVICE VENTILATOR
[2017-09-09 10:29] LABS: NUMBER OF ARTERIAL PUNCTURES 1; STAT NO
--- NOTE | 2017-09-09 11:00 | PD.CONS ---
(Dax Garcia MD) HPI Consult Requested By Primary Care Physician Zachery Mendiola MD History of Present Illness This is a 67 year old female transfered from [facility] in [facility] related to a fall with an intracranial hemorrhage. She had a cardiac valve replacement and she is on aspirin and Plavix. CT scan of the brain that was negative yesterday. The patient then fell again after going home. According to the record the patient initially fell forward the first time striking her head and has right-sided forehead contusion associated with abrasion, and then the patient fell backwards the second time striking the back of her head. The patient had complained of headache and neck pain. The patient proceeded to have intractable nausea and vomiting and was intubated to protect her airway. At [facility] she was given morphine for pain, Zofran for nausea. With intractable nausea the patient was given Phenergan. No seizure activity. No tongue bitting. no incontinence of stool orurine, The patient was then intubated with etomidate and succinylcholine. She is moving all her extremities Neurosurgical consuoltation was requested (Dax Garcia MD) Service NRS Consult Requested By Dr. Briggs Reason for Consult SDH History of Present Illness 67 year old female who was transferred from [facility] for subdural hematoma. She had recently suffered multiple falls and is on aspirin and Plavix. She was vomiting and agitated. She was intubated at [facility]. A neurosurgical evaluation was requested. (Jessy Contreras) Review of Systems Unknown and unobtainable due to her clinical condition (Dax Garcia MD) ROS Limitations: Intubated (Jessy Contreras) Past Family Social History Allergies: Coded Allergies: No Allergy Information Available (Unverified , 09/09/17) n Past Medical History Unknown and unobtainable due to her clinical condition Past Surgical History Unknown and unobtainable due to her clinical condition Reported Medications Unknown and unobtainable due to her clinical condition Active Ordered Medications Current Medications Fentanyl Citrate (fentaNYL INJ) 100 mcg STK-MED ONCE .ROUTE ; Start 09/09/17 at 01:25; Stop 09/09/17 at 01:26; Status DC Iohexol (Omnipaque 350 Inj) 100 ml STK-MED ONCE IVCONTRAST Last administered on 09/09/17 01:48; Start 09/09/17 at 01:48; Stop 09/09/17 at 01:49; Status DC Sodium Chloride 1,000 ml @ 100 mls/hr Q10H IV Last administered on 09/09/17 12:59; Start 09/09/17 at 01:55; Stop 09/09/17 at 13:25; Status DC Famotidine (Pepcid Inj) 20 mg Q12HR IV PUSH Last administered on 09/09/17 20: 33; Start 09/09/17 at 02:00 Miscellaneous Information 1 Q361D XX Last administered on 09/09/17 02:00; Start 09/09/17 at 02:00 Chlorhexidine Gluconate (Chlorhexidine 2% Cloth) 3 pack Taper DAILY@04 TOP ; Start 09/09/17 at 04:00; Stop 09/05/18 at 03:59 Chlorhexidine Gluconate (Chlorhexidine 2% Cloth) 3 pack UNSCH PRN TOP HYGIENIC CARE; Start 09/09/17 at 02:00 Senna/Docusate Sodium (Yamilet-Colace) 1 tab BID PO Last administered on 20:33; Start 09/09/17 at 09:00 Magnesium Hydroxide (Milk Of Magnesia Liq) 30 ml Q12H PRN PO Mild constipation ; Start 09/09/17 at 02:00 Sennosides (Senokot) 17.2 mg Q12H PRN PO Moderate constipation; Start at 02:00 Bisacodyl (Dulcolax Supp) 10 mg DAILY PRN RECTAL SEVERE CONSITIPATION/ IF NPO; Start 09/09/17 at 02:00 Lactulose (Lactulose Liq) 30 ml DAILY PRN PO SEVERE CONSITIPATION/ IF PO; Start 09/09/17 at 02:00 Propofol 100 ml @ 2.019 mls/ hr TITRATE PRN IV SEDATION Last administered on 09/09/17 20:34; Start 09/09/17 at 02:00 Fentanyl Citrate 250 ml @ 5 mls/hr TITRATE PRN IV SEDATION; Start 09/09/17 at 02:00; Stop 09/09/17 at 02:04; Status DC Fentanyl Citrate 250 ml @ 5 mls/hr TITRATE PRN IV SEDATION Last administered on 09/09/17t 12:59; Start 09/09/17 at 02:15 Diltiazem HCl 125 mg/Sodium Chloride 125 ml @ 5 mls/hr TITRATE PRN IV Tachycardia; Start 09/09/17 at 02:30; Status Cancel Levetriacetam 500 mg/Sodium Chloride 105 ml @ 420 mls/hr Q12HR IV Last administered on 09/09/17t 20:32; Start 09/09/17 at 02:30 Nicardipine HCl 25 mg/Sodium Chloride 250 ml @ 50 mls/hr TITRATE PRN IV Blood Pressure Management; Start 09/09/17 at 03:45; Stop 09/09/17 at 09:27; Status DC Vancomycin HCl (Vancomycin Inj) 1,000 mg STK-MED ONCE .ROUTE ; Start 09/09/17 at 08:13; Stop 09/09/17 at 08:14; Status DC Thrombin (Thrombin Top Soln) 10,000 units STK-MED ONCE .ROUTE ; Start 09/09/17 at 08:13; Stop 09/09/17 at 08:14; Status DC Cefazolin Sodium/ Dextrose 50 ml @ As Directed STK-MED ONCE .ROUTE ; Start 09/14 at 08:13; Stop 09/09/17 at 08:14; Status DC Gelatin (Gelfoam 100 Top) 1 foam STK-MED ONCE .ROUTE ; Start 09/09/17 at 08:13 ; Stop 09/09/17 at 08:14; Status DC Furosemide (Lasix Inj) 40 mg STK-MED ONCE .ROUTE ; Start 09/09/17 at 08:14; Stop 09/09/17 at 08:15; Status DC Levetriacetam (Keppra Inj) 1,000 mg STK-MED ONCE IV ; Start 09/09/17 at 08:14; Stop 09/09/17 at 08:15; Status DC Bacitracin (Baciguent Oint) 15 applic STK-MED ONCE .ROUTE ; Start 09/09/17 at 08:14; Stop 09/09/17 at 08:15; Status DC Gentamicin Sulfate (Gentamicin Inj) 240 mg STK-MED ONCE .ROUTE ; Start at 08:14; Stop 09/09/17 at 08:15; Status DC Mannitol 100 ml @ As Directed STK-MED ONCE .ROUTE ; Start 09/09/17 at 08:14; Stop 09/09/17 at 08:15; Status DC Lidocaine/ Epinephrine (Xylocaine-Epi 1%-1:100,000 Inj) 20 ml STK-MED ONCE .ROUTE ; Start 09/09/17 at 08:15; Stop 09/09/17 at 08:16; Status DC Sodium Chloride 250 ml @ As Directed STK-MED ONCE .ROUTE ; Start 09/09/17 at 08:15; Stop 09/09/17 at 08:16; Status DC Sodium Chloride 188 meq/Sodium Chloride 1,047 ml @ 40 mls/hr Q24H IV Last administered on 09/09/17t 16:27; Start 09/09/17 at 16:00 Potassium Chloride 100 ml @ 50 mls/hr Q2H PRN IV For Potassium 2.8 - 3.2 mEq/L ; Start 09/09/17 at 13:45 Potassium Chloride 100 ml @ 50 mls/hr Q2H PRN IV For Potassium 2.8 - 3.2 mEq/ L Last administered on 09/09/17t 20:35; Start 09/09/17 at 13:45 Potassium Bicarb/ Potassium Chloride (K-Lyte Cl Eff) 50 meq UNSCH PRN PO For Potassium 3.3 - 3.5 mEq/L; Start 09/09/17 at 13:45 Potassium Chloride 100 ml @ 25 mls/hr UNSCH PRN IV For Potassium 3.3 - 3.5 mEq /L; Start 09/09/17 at 13:45 Potassium Chloride 100 ml @ 50 mls/hr Q2H PRN IV For Potassium 3.3 - 3.5 mEq/L ; Start 09/09/17 at 13:45 Magnesium Sulfate 4 gm/Sodium Chloride 100 ml @ 50 mls/hr UNSCH PRN IV For Magnesium 0.9 - 1.1 mg/dL; Start 09/09/17 at 13:45 Magnesium Oxide (Mag-Ox) 800 mg UNSCH PRN PO For Magnesium 1.2 - 1.6 mg/dL; Start 09/09/17 at 13:45 Magnesium Sulfate 2 gm/Sodium Chloride 100 ml @ 50 mls/hr UNSCH PRN IV For Magnesium 1.2 - 1.6 mg/dL; Start 09/09/17 at 13:45 Potassium Phosphate (K-Phos) 2,000 mg Q4H PRN PO For Phosphorus < 2.5 mg/dL; Start 09/09/17 at 13:45 Sodium Phosphate 30 mmol/Sodium Chloride 250 ml @ 42 mls/hr UNSCH PRN IV For Phosphorus < 2.5 mg/dL; Start 09/09/17 at 13:45 Potassium Phosphate (K-Phos) 2,000 mg UNSCH PRN PO/TUBE SEE LABEL COMMENTS; Start 09/09/17 at 13:45 Potassium Phosphate 30 mmol/ Sodium Chloride 260 ml @ 42 mls/hr UNSCH PRN IV SEE LABEL COMMENTS; Start 09/09/17 at 13:45 Sodium Chloride 188 meq/Sodium Chloride 1,047 ml @ 40 mls/hr Q24H IV ; Start 09/09/17 at 16:30; Stop 09/09/17 at 16:30; Status DC Pneumococcal Polyvalent Vaccine (Pneumovax-23 Inj) 25 mcg ONCE ONCE IM ; Start 09/10/17 at 10:00; Stop 09/10/17 at 10:01 Family History Unknown and unobtainable due to her clinical condition Social History Unknown and unobtainable due to her clinical condition (Dax Garcia MD) Past Medical History Hypothyroidism Congestive Heart Failure Past Surgical History AVR Reported Medications reviewed in EMR Active Ordered Medications Current Medications Medications (Trade) Dose Ordered Sig/Tonja Route PRN Reason Start Time Stop Time Status Last Admin Dose Admin Famotidine (Pepcid Inj) 20 mg Q12HR IV PUSH 09/09/17 02:00 09/09/17 09:32 Miscellaneous Information 1 Q361D XX 09/09/17 02:00 09/09/17 02:00 Chlorhexidine Gluconate (Chlorhexidine 2% Cloth) 3 pack Taper DAILY@04 TOP 09/09/17 04:00 09/05/18 03:59 Chlorhexidine Gluconate (Chlorhexidine 2% Cloth) 3 pack UNSCH PRN TOP HYGIENIC CARE 09/09/17 02:00 Senna/Docusate Sodium (Yamilet-Colace) 1 tab BID PO 09/09/17 09:00 09/09/17 09:32 Magnesium Hydroxide (Milk Of Magnesia Liq) 30 ml Q12H PRN PO Mild constipation 09/09/17 02:00 Sennosides (Senokot) 17.2 mg Q12H PRN PO Moderate constipation 09/09/17 02:00 Bisacodyl (Dulcolax Supp) 10 mg DAILY PRN RECTAL SEVERE CONSITIPATION/ IF NPO 09/09/17 02:00 Lactulose (Lactulose Liq) 30 ml DAILY PRN PO SEVERE CONSITIPATION/ IF PO 09/09/17 02:00 Propofol 100 ml @ 2.019 mls/ hr TITRATE PRN IV SEDATION 09/09/17 02:00 09/09/17 10:14 Fentanyl Citrate 250 ml @ 5 mls/hr TITRATE PRN IV SEDATION 09/09/17 02:15 09/09/17 12:59 Levetriacetam 500 mg/Sodium Chloride 105 ml @ 420 mls/hr Q12HR IV 09/09/17 02:30 09/09/17 09:32 Sodium Chloride 188 meq/Sodium Chloride 1,047 ml @ 40 mls/hr Q24H IV 09/09/17 13:30 UNV Potassium Chloride 100 ml @ 50 mls/hr Q2H PRN IV For Potassium 2.8 - 3.2 mEq/L 09/09/17 13:45 UNV Potassium Chloride 100 ml @ 50 mls/hr Q2H PRN IV For Potassium 2.8 - 3.2 mEq/L 09/09/17 13:45 UNV Potassium Bicarb/ Potassium Chloride (K-Lyte Cl Eff) 50 meq UNSCH PRN PO For Potassium 3.3 - 3.5 mEq/L 09/09/17 13:45 UNV Potassium Chloride 100 ml @ 25 mls/hr UNSCH PRN IV For Potassium 3.3 - 3.5 mEq/L 09/09/17 13:45 UNV Potassium Chloride 100 ml @ 50 mls/hr Q2H PRN IV For Potassium 3.3 - 3.5 mEq/L 09/09/17 13:45 UNV Magnesium Sulfate 4 gm/Sodium Chloride 100 ml @ 50 mls/hr UNSCH PRN IV For Magnesium 0.9 - 1.1 mg/dL 09/09/17 13:45 UNV Magnesium Oxide (Mag-Ox) 800 mg UNSCH PRN PO For Magnesium 1.2 - 1.6 mg/dL 09/09/17 13:45 UNV Magnesium Sulfate 2 gm/Sodium Chloride 100 ml @ 50 mls/hr UNSCH PRN IV For Magnesium 1.2 - 1.6 mg/dL 09/09/17 13:45 UNV Potassium Phosphate (K-Phos) 2,000 mg Q4H PRN PO For Phosphorus < 2.5 mg/dL 09/09/17 13:45 UNV Sodium Phosphate 30 mmol/Sodium Chloride 250 ml @ 42 mls/hr UNSCH PRN IV For Phosphorus < 2.5 mg/dL 09/09/17 13:45 UNV Potassium Phosphate (K-Phos) 2,000 mg UNSCH PRN PO/TUBE SEE LABEL COMMENTS 09/09/17 13:45 UNV Potassium Phosphate 30 mmol/ Sodium Chloride 260 ml @ 42 mls/hr UNSCH PRN IV SEE LABEL COMMENTS 09/09/17 13:45 UNV Family History reviewed and not contributory her to current problem Social History no reports of tobacco, etoh or illicit drug use (Jessy Contreras) Physical Exam Vital Signs Vital Signs Date Time Temp Pulse Resp B/P (MAP) Pulse Ox O2 Delivery O2 Flow Rate FiO2 09/09/17 08:36 100 50 09/09/17 08:30 97 50 09/09/17 06:30 99.5 72 15 133/57 100 09/09/17 06:00 99.1 82 15 122/58 100 09/09/17 06:00 81 09/09/17 05:40 99.1 89 15 131/60 99 09/09/17 04:43 99.2 77 15 136/63 99 09/09/17 04:39 100 50 09/09/17 04:00 81 09/09/17 04:00 99.2 78 15 134/65 (88) 100 09/09/17 04:00 50 09/09/17 02:01 100 100 09/09/17 02:00 81 09/09/17 02:00 98.3 78 15 198/83 (121) 99 09/09/17 02:00 50 09/09/17 01:36 99 100 09/09/17 01:26 100 100 09/09/17 01:16 100 15.00 100 Physical Exam The patient is intubated and sedated. Localizes to painful stimulii with all 4 extremities. Cranial Nerves: Pupils equal, round, reactive to light. Eyes appear conjugated. There was no nystagmus, no papilledema. Face musculature appeared symmetrical at rest. Face sensation, olfaction, visual louise, and hearing cannot be adequately assessed due to his neurological condition. The patient has a corneal reflex. He has a gag reflex. The sternocleidomastoid and trapezius are symmetrical. Cervical Spine: His neck is soft, supple, without nuchal rigidity. Motor: His muscle tone and bulk are normal. He moves purposefully all 4 extremities symmetrically. Reflexes: Deep tendon reflexes are 1+ and symmetrical in the biceps, triceps, and brachioradialis, bilaterally, in the upper extremities. In the lower extremities, the patellar and ankles are 1+, bilaterally. There is a bilateral plantar flexion response. There is no clonus or other abnormal reflexes noted. Sensory: On examination there is response to painful stimuli, localizing with both upper and lower extremities. Cerebellar: Examination cannot be adequately assessed due to the patient's neurological condition. Laboratory Laboratory Tests Test 09/09/17 01:25 09/09/17 02:06 09/09/17 10:14 White Blood Count 10.0 Red Blood Count 2.63 Hemoglobin 8.7 Bedside Hemoglobin 8.5 Hematocrit 25.7 Bedside Hematocrit 25.0 Mean Corpuscular Volume 97.7 Mean Corpuscular Hemoglobin 33.0 Mean Corpuscular Hemoglobin Concent 33.7 Red Cell Distribution Width 15.7 Platelet Count 71 Mean Platelet Volume 11.7 Neutrophils (%) (Auto) 83.1 Lymphocytes (%) (Auto) 4.9 Monocytes (%) (Auto) 11.7 Eosinophils (%) (Auto) 0.0 Basophils (%) (Auto) 0.3 Neutrophils # (Auto) 8.3 Lymphocytes # (Auto) 0.5 Monocytes # (Auto) 1.2 Eosinophils # (Auto) 0.0 Basophils # (Auto) 0.0 CBC Comment AUTO DIFF Differential Comment AUTO DIFF CONFIRMED Platelet Estimate LOW Platelet Morphology Comment ENLARGED Prothrombin Time 12.5 Prothromb Time International Ratio 1.2 Activated Partial Thromboplast Time 22.4 Fibrinogen 301 Bedside Sodium 132 Bedside Potassium 3.4 Bedside Chloride 88 Bedside Blood Urea Nitrogen 4 Bedside Creatinine 0.7 Bedside Glucose 150 Blood Gas Puncture Site LT RADIAL LT BRACHIAL Blood Gas Patient Temperature 98.6 98.6 Blood Gas HCO3 26 27 Blood Gas Base Excess 3.5 4.2 Blood Gas Oxygen Saturation 98 98 Arterial Blood pH 7.55 7.54 Arterial Blood Partial Pressure CO2 30 32 Arterial Blood Partial Pressure O2 525 214 Arterial Blood Oxygen Content 12.3 13.5 Arterial Blood Carboxyhemoglobin 1.8 1.7 Arterial Blood Methemoglobin 0.9 0.9 Blood Gas Hemoglobin 7.9 9.5 Oxygen Delivery Device VENTILATOR VENTILATOR Blood Gas Ventilator Setting SEE COMMENT Blood Gas Inspired Oxygen 100 50 (Dax Garcia MD) Result Diagram: 09/09/17124 Imaging Last 48 hours Impressions Pelvis X-Ray 09/09/17123 Signed Impressions: Service Date/Time: Saturday, September 09, 2017 01:22 - CONCLUSION: No fracture seen. Amorphous calcification superior to the left greater trochanter is of uncertain significance. CT is pending. Amador Feldman MD Maxillofacial CT 09/09/17123 Signed Impressions: Service Date/Time: Saturday, September 09, 2017 01:32 - CONCLUSION: 1. No facial bone fracture seen. 2. Mild ethmoid sinus disease. Amador Feldman MD Head CT 09/09/17123 Signed Impressions: Service Date/Time: Saturday, September 09, 2017 01:32 - CONCLUSION: 1. Evidence of closed head injury with 1 cm right subdural hematoma extending from the high convexity, subarachnoid blood along the right tentorium and interhemispheric fissure, right hemispheric edema with 3 mm midline shift towards the left, and intraventricular blood in the left occipital horn. 2. Right frontoparietal and right occipital scalp hematomas. No skull fracture seen. Amador Feldman MD Chest X-Ray 09/09/17123 Signed Impressions: Service Date/Time: Saturday, September 09, 2017 01:22 - CONCLUSION: The lungs are clear. No evidence of pneumothorax. Amador Feldman MD Chest CT 09/09/17123 Signed Impressions: Service Date/Time: Saturday, September 09, 2017 01:44 - CONCLUSION: 1. No evidence pneumothorax. 2. Bibasilar atelectasis. 3. Focal 12 mm opacity lateral left mid lung may represent pulmonary contusion, focal infiltrate, or mass. Recommend followup scan to assure resolution. Amador Feldmna MD Cervical Spine CT 09/09/174 Signed Impressions: Service Date/Time: Saturday, September 09, 2017 01:32 - CONCLUSION: No evidence of compression deformity or spondylolisthesis. Amador Feldman MD Abdomen/Pelvis CT 09/09/174 Signed Impressions: Service Date/Time: Saturday, September 09, 2017 01:44 - CONCLUSION: Negative trauma CT abdomen/pelvis with contrast. Amador Feldman MD Head CT 09/09/17 0000 Signed Impressions: Service Date/Time: Saturday, September 09, 2017 08:44 - CONCLUSION: No significant change. Stable small subdural hematomas. Small amount of intraventricular hemorrhage noted. Aditya Whitehead MD (Dax Garcia MD) Assessment and Plan Assessment and Plan Caprini VTE Risk Assessment Caprini VTE Risk Assessment Caprini VTE Risk Assessment: Mod/High Risk (score >= 2) VTE Pharm Contraindication: Hemorrhage Caprini Risk Assessment Model Point Value = 1 Point Value = 2 Point Value = 3 Point Value = 5 Age 41-60 Minor surgery BMI > 25 kg/m2 Swollen legs Varicose veins or History of unexplained or recurrent spontaneous Oral contraceptives or hormone replacement Sepsis (< 1 month) Serious lung disease, including pneumonia (< 1 month) Abnormal pulmonary function Acute myocardial infarction Congestive heart failure (< 1 month) History of inflammatory bowel disease Medical patient at bed rest Age 61-74 Arthroscopic surgery Major open surgery (> 45 min) Laparoscopic surgery (> 45 min) Malignancy Confined to bed (> 72 hours) Immobilizing plaster cast Central venous access Age >= 75 History of VTE Family history of VTE Factor V Leiden Prothrombin [id number] Lupus anticoagulant Anticardiolipin antibodies Elevated serum homocysteine Heparin-induced thrombocytopenia Other congenital or acquired thrombophilia Stroke (< 1 month) Elective arthroplasty Hip, pelvis, or leg fracture Acute spinal cord injury (< 1 month) Prophylaxis Regimen Total Risk Factor Score Risk Level Prophylaxis Regimen 0-1 Low Early ambulation 2 Moderate Order ONE of the following: *Sequential Compression Device (SCD) *Heparin 5000 units SQ BID 3-4 Higher Order ONE of the following medications: *Heparin 5000 units SQ TID *Enoxaparin/Lovenox 40 mg SQ daily (WT < 150 kg, CrCl > 30 mL/min) *Enoxaparin/Lovenox 30 mg SQ daily (WT < 150 kg, CrCl > 10-29 mL/min) *Enoxaparin/Lovenox 30 mg SQ BID (WT < 150 kg, CrCl > 30 mL/min) AND/OR *Sequential Compression Device (SCD) 5 or more Highest Order ONE of the following medications: *Heparin 5000 units SQ TID (Preferred with Epidurals) *Enoxaparin/Lovenox 40 mg SQ daily (WT < 150 kg, CrCl > 30 mL/min) *Enoxaparin/Lovenox 30 mg SQ daily (WT < 150 kg, CrCl > 10-29 mL/min) *Enoxaparin/Lovenox 30 mg SQ BID (WT < 150 kg, CrCl > 30 mL/min) AND *Sequential Compression Device (SCD) (Dax Garcia MD) Attending Statement Severe traumatic brain injury. Neuro checks in a serial fashion. Follow up CT brain this morning was stable. Will attempt nonoperative treatment Subdural Hematoma. Non surgical management. Follow up brain in AM Acute respiratory failure. Ventilator bundle. Pulmonary.. Continue aggressive pulmonary toilette, nasotracheal suction, and breathing treatments with nebulizers. Nutrition. NPO acetaminophen/cooling blanket as needed for temperature greater than 100.4 Status post valve replacement. Hold anticoagulation Renal: - butler - strict i/o's Renal. monitor closely urine output, BUN and creatinine Butler in place. Monitor intake and output. Monitor electrolytes and replace as indicated per ICU electrolyte replacement protocol. ENDO: Monitor bedside glucose and initiate low-dose insulin sliding scale as indicated for glucose greater than 180 central venous line A-line insertion for hemodynamic monitoring Infectious disease. monitor for signs of infection Protonix for stress ulcer prophylaxis Ulises hose and SCD's for DVT prophylaxis. Discussed with Dr Briggs (Dax Garcia MD) Dax Garcia MD Sep 09, 2017 11:00 Jessy Contreras Sep 09, 2017 14:51
[2017-09-09 11:52] LABS: HEMATOCRIT 27.7 % (35.0-46.0); MEAN CELL VOLUME 94.5 FL (80.0-100.0); MEAN CORPUSCULAR HEMOGLOBIN 32.6 PG (27.0-34.0); MEAN CORPUSCULAR HGB CONC 34.5 % (32.0-36.0); PLATELET COUNT 94 TH/MM3 (150-450); RED BLOOD COUNT 2.94 MIL/MM3 (4.00-5.30); RED CELL DISTRIBUTION WIDTH 15.9 % (11.6-17.2)
[2017-09-09 11:59] LABS: REVIEW FLAG FINAL
[2017-09-09 12:14] LABS: ANION GAP 9 MEQ/L (5-15); AST (GOT) 30 U/L (15-37); BICARBONATE 26.5 MEQ/L (21.0-32.0); BLOOD UREA NITROGEN 4 MG/DL (7-18); CHLORIDE 100 MEQ/L (98-107); GLOMERULAR FILTRATION RATE 116 ML/MIN (>89); SODIUM (NA) 135 MEQ/L (136-145)
[2017-09-09 12:15] LABS: ALT (GPT) 19 U/L (10-53)
[2017-09-09 12:17] LABS: ALKALINE PHOSPHATASE 54 U/L (45-117); TOTAL BILIRUBIN ADULT 1.4 MG/DL (0.2-1.0)
[2017-09-09] MEDS ORDERED: POTASSIUM PHOSPHATE MONOBASIC 500 MG TAB PO PRN (13:45)
[2017-09-09] MEDS ORDERED: POTASSIUM PHOSPHATE INJ 30 MMOL in SODIUM CHLOR 0.9% 250 ML INJ 250 ML IV PRN (13:45)
[2017-09-09] MEDS ORDERED: MAGNESIUM SULFATE INJ 2 GM in SODIUM CHLORIDE 0.9% INJ 96 ML IV PRN (13:45)
[2017-09-09] MEDS ORDERED: POTASSIUM CHLORIDE 25 MEQ EFFERVESCENT TAB PO PRN (13:45)
[2017-09-09] MEDS ORDERED: POTASSIUM CHLOR 40 MEQ PREMIX 100 ML IV PRN (13:45)
[2017-09-09] MEDS ORDERED: SODIUM PHOSPHATE INJ 30 MMOL in SODIUM CHLOR 0.9% 250 ML INJ 240 ML IV PRN (13:45)
[2017-09-09] MEDS ORDERED: POTASSIUM PHOSPHATE MONOBASIC 500 MG TAB PO/TUBE PRN (13:45)
[2017-09-09] MEDS ORDERED: MAGNESIUM SULFATE INJ 4 GM in SODIUM CHLORIDE 0.9% INJ 92 ML IV PRN (13:45)
[2017-09-09] MEDS ORDERED: POTASSIUM CHLOR 20 MEQ PREMIX 100 ML IV PRN (13:45)
[2017-09-09] MEDS ORDERED: MAGNESIUM OXIDE 400 MG TAB PO PRN (13:45)
[2017-09-09] MEDS: SODIUM CHLORIDE 23.4% INJ 188 MEQ in SODIUM CHLOR 0.9% 1000 ML INJ 1,000 ML IV SCH (16:27)
[2017-09-09] MEDS ORDERED: SODIUM CHLORIDE 23.4% INJ 188 MEQ in SODIUM CHLOR 0.9% 1000 ML INJ 1,000 ML IV SCH (16:30)
--- NOTE | 2017-09-09 20:23 | HHI.CCPN ---
Subjective Brief History 67 y.o female transfer from -with SDH-on plavix /ASA-s/p AVR history of breast CA fell today was seen in the ER ,however patient signed AMA and fell again on her way back home,agitated in the ER with intractable vomiting -CT head showed SDH with shift,patient was intubated for transfer-on arrival HD normal,purposeful movement towards the tube-brought to CT scan for further workup-multiple bruises extremities,trunk noted. 24 Hour Review/Hospital Course 09/09 SubDural hematoma, thrombocytopenia Patient is purposeful off sedation Na135, likely chronic hemodynamically normal CT of the head is stable Received platelets for thrombocytopenia in light of SDH Objective Vital Signs Date Time Temp Pulse Resp B/P (MAP) Pulse Ox O2 Delivery O2 Flow Rate FiO2 09/09/17 18:00 78 09/09/17 16:17 100 40 09/09/17 16:00 98.7 15 114/56 (75) 09/09/17 07:00 Mechanical Ventilator 09/09/17 01:16 15.00 Intake and Output 09/09/17 09/09/17 09/10/17 08:00 16:00 00:00 Intake Total 2456 ml 1555 ml 350 ml Output Total 550 ml 925 ml Balance 1906 ml 1555 ml -575 ml Result Diagram: 09/09/17 1120 09/09/17 1120 Other Results Laboratory Tests Test 09/09/17 02:06 09/09/17 10:14 Blood Gas Puncture Site LT RADIAL LT BRACHIAL Blood Gas Patient Temperature 98.6 98.6 Blood Gas HCO3 26 mmol/L (22-26) 27 mmol/L (22-26) Blood Gas Base Excess 3.5 mmol/L (-2-2) 4.2 mmol/L (-2-2) Blood Gas Oxygen Saturation 98 % (90-100) 98 % (90-100) Arterial Blood pH 7.55 (7.380-7.420) 7.54 (7.380-7.420) Arterial Blood Partial Pressure CO2 30 mmHg (38-42) 32 mmHg (38-42) Arterial Blood Partial Pressure O2 525 mmHg (61-120) 214 mmHg (61-120) Arterial Blood Oxygen Content 12.3 Vol % (12.0-20.0) 13.5 Vol % (12.0-20.0) Arterial Blood Carboxyhemoglobin 1.8 % (0-4) 1.7 % (0-4) Arterial Blood Methemoglobin 0.9 % (0-2) 0.9 % (0-2) Blood Gas Hemoglobin 7.9 G/DL (12.0-16.0) 9.5 G/DL (12.0-16.0) Oxygen Delivery Device VENTILATOR VENTILATOR Blood Gas Ventilator Setting SEE COMMENT Blood Gas Inspired Oxygen 100 % 50 % Imaging Last 24 hours Impressions Pelvis X-Ray 09/09/17123 Signed Impressions: Service Date/Time: Saturday, September 09, 2017 01:22 - CONCLUSION: No fracture seen. Amorphous calcification superior to the left greater trochanter is of uncertain significance. CT is pending. Amador Feldman MD Maxillofacial CT 09/09/17123 Signed Impressions: Service Date/Time: Saturday, September 09, 2017 01:32 - CONCLUSION: 1. No facial bone fracture seen. 2. Mild ethmoid sinus disease. Amador Feldman MD Head CT 09/09/17123 Signed Impressions: Service Date/Time: Saturday, September 09, 2017 01:32 - CONCLUSION: 1. Evidence of closed head injury with 1 cm right subdural hematoma extending from the high convexity, subarachnoid blood along the right tentorium and interhemispheric fissure, right hemispheric edema with 3 mm midline shift towards the left, and intraventricular blood in the left occipital horn. 2. Right frontoparietal and right occipital scalp hematomas. No skull fracture seen. Amador Feldman MD Chest X-Ray 09/09/17123 Signed Impressions: Service Date/Time: Saturday, September 09, 2017 01:22 - CONCLUSION: The lungs are clear. No evidence of pneumothorax. Amador Feldman MD Chest CT 09/09/17123 Signed Impressions: Service Date/Time: Saturday, September 09, 2017 01:44 - CONCLUSION: 1. No evidence pneumothorax. 2. Bibasilar atelectasis. 3. Focal 12 mm opacity lateral left mid lung may represent pulmonary contusion, focal infiltrate, or mass. Recommend followup scan to assure resolution. Amador Feldman MD Cervical Spine CT 09/09/17123 Signed Impressions: Service Date/Time: Saturday, September 09, 2017 01:32 - CONCLUSION: No evidence of compression deformity or spondylolisthesis. Amador Feldman MD Abdomen/Pelvis CT 09/09/17 0124 Signed Impressions: Service Date/Time: Saturday, September 09, 2017 01:44 - CONCLUSION: Negative trauma CT abdomen/pelvis with contrast. Amador Feldman MD Head CT 09/09/17 0000 Signed Impressions: Service Date/Time: Saturday, September 09, 2017 08:44 - CONCLUSION: No significant change. Stable small subdural hematomas. Small amount of intraventricular hemorrhage noted. Aditya Whitehead MD Exam BAR USEFUL OR BUSSER GCS 10 T Hemodynamic/Cardiac stable Pulmonary/Respiratory mech/ventilation Abdomen/GI Nutrition soft Urinary Catheter Assessment Urinary Catheter: Yes Vascular Central Line Catheter Vascular Central Line Catheter: No Assessment and Plan Plan Continue neuro checks of sedation start wean process in the morning remained stable .start Tube feeds discuss chemical prophylaxis with neurosurgeon in the next 2 days 2% normal saline-to achieve normal sodium in light of traumatic brain injury Discussed with neurosurgeon Family updated at the bedside Dee Briggs MD Sep 09, 2017 20:23
[2017-09-09] MEDS: POTASSIUM CHLOR 20 MEQ PREMIX 100 ML IV PRN ×2 (20:35→22:58)
[2017-09-10] VITALS (18 sets, daily range): BP systolic 140–166; BP diastolic 63–73; PULSE 72–96; RESP 15–23; TEMP 97.9–100.2; O2SAT 98–100
[2017-09-10] MEDS: POTASSIUM CHLOR 20 MEQ PREMIX 100 ML IV PRN ×2 (00:42→02:40)
[2017-09-10] MEDS: CHLORHEXIDINE GLUCONATE 2 % 1 PACK (2 CLOTHS) TOP SCH ×2 (00:42→19:31)
[2017-09-10] MEDS: fentaNYL DRIP 250 ML IV PRN (02:38)
[2017-09-10] MEDS: PROPOFOL 1000 MG/100 ML INJ 100 ML IV PRN ×2 (02:39→06:01)
[2017-09-10 04:43] LABS: AUTOMATED NEUTROPHIL # 3.7 TH/MM3 (1.8-7.7); BASOPHIL # 0.1 TH/MM3 (0-0.2); EOSINOPHIL # 0.1 TH/MM3 (0-0.4); HEMATOCRIT 29.9 % (35.0-46.0); LYMPH % 16.1 % (9.0-44.0); LYMPHOCYTE # 0.9 TH/MM3 (1.0-4.8); MEAN CELL VOLUME 96.8 FL (80.0-100.0); MEAN CORPUSCULAR HEMOGLOBIN 32.8 PG (27.0-34.0); MEAN CORPUSCULAR HGB CONC 33.9 % (32.0-36.0); MONO % 12.5 % (0.0-8.0); NEUT % 68.4 % (16.0-70.0); PLATELET COUNT 92 TH/MM3 (150-450); RED BLOOD COUNT 3.09 MIL/MM3 (4.00-5.30); WHITE BLOOD COUNT 5.4 TH/MM3 (4.0-11.0)
[2017-09-10 04:55] LABS: HEMO FLAGS AUTO DIFF
[2017-09-10 05:15] LABS: BICARBONATE 24.3 MEQ/L (21.0-32.0); POTASSIUM 3.6 MEQ/L (3.5-5.1)
[2017-09-10] MEDS: SODIUM CHLOR 0.9% 1000 ML INJ 1,000 ML IV SCH ×2 (05:16→05:17)
--- NOTE | 2017-09-10 05:40 | RADRPT ---
EXAM DATE/TIME: 09/10/2017 04:44 [place] COMPARISON: CHEST SINGLE AP, September 09, 2017, 1:22. INDICATIONS : Shortness of breath. MEDICAL HISTORY : Non-responsive SURGICAL HISTORY : Non-responsive ENCOUNTER: Subsequent ACUITY: 2 days PAIN SCORE: Non-responsive. LOCATION: Bilateral chest FINDINGS: ET tube tip 2.8 cm above the guillaume. Gastric tube traverses the [id number]. Patchy areas of infi ltrate without consolidation in the medial left lung slightly more prominent than on prior exam. The right lung is clear. Heart is normal size. CONCLUSION: Increasing non-consolidative infiltrates in the left medial lung base. Amador Feldman MD on September 10, 2017 at 5:38 Board Certified Radiologist. This report was verified electronically.
[2017-09-10] MEDS: SODIUM CHLORIDE 23.4% INJ 188 MEQ in SODIUM CHLOR 0.9% 1000 ML INJ 1,000 ML IV SCH ×2 (06:01→20:50)
[2017-09-10 06:27] LABS: PLATELET ESTIMATE SMEAR LOW (NORMAL); PLATELET MORPHOLOGY ENLARGED (NORMAL)
[2017-09-10 06:28] LABS: SCAN/DIFF AUTO DIFF CONFIRMED
[2017-09-10] MEDS: FAMOTIDINE 20 MG/2 ML VIAL IV PUSH SCH ×2 (08:00→19:47)
[2017-09-10] MEDS: DOCUSATE SODIUM 50 MG/SENNA 8.6 MG TAB PO SCH ×3 (08:00→20:30)
[2017-09-10] MEDS: levETIRAcetam INJ 500 MG in SODIUM CHLORIDE 0.9% INJ 100 ML IV SCH ×2 (08:00→19:47)
[2017-09-10] MEDS ORDERED: FUROSEMIDE 20 MG/2 ML VIAL IV PUSH ONE (09:30)
[2017-09-10] MEDS ORDERED: PNEUMOCOCCAL POLYVALENT INJ 25 MCG/0.5 ML SYR IM ONE (10:00)
[2017-09-10] MEDS: METOPROLOL TARTRATE 5 MG/5 ML VIAL IV PUSH SCH ×3 (10:37→22:35)
--- NOTE | 2017-09-10 13:36 | HHI.NSPN ---
(Jessy Contreras) Note Status Status: Progress Note (Jsesy Contreras) Interval History Interval History 67 year old female who was transferred from [facility] for subdural hematoma. She had recently suffered multiple falls and is on aspirin and Plavix. She was vomiting and agitated. She was intubated at [facility]. A neurosurgical evaluation was requested. 09/10: becomes agitated when sedation is decreased, currently intubated and sedated. Opening eyes and spontaneously moves x 4 extremities. (Jessy Contreras) Labs, Micro, & Vital Signs Results Date Time Temp Pulse Resp B/P (MAP) Pulse Ox O2 Delivery O2 Flow Rate FiO2 09/10/17 11:50 100 40 09/10/17 08:00 40 09/10/17 08:00 99.2 77 15 154/68 (96) 100 09/10/17 08:00 77 09/10/17 07:58 100 40 09/10/17 07:00 100 Mechanical Ventilator 40 09/10/17 06:00 88 09/10/17 04:00 40 09/10/17 04:00 90 09/10/17 04:00 98.7 87 15 166/73 (104) 99 09/10/17 03:23 98 40 09/10/17 02:00 88 09/10/17 00:00 40 09/10/17 00:00 80 09/10/17 00:00 98.8 81 15 140/63 (88) 100 09/09/17 23:54 100 40 09/09/17 22:00 82 09/09/17 20:30 100 40 09/09/17 20:00 40 09/09/17 20:00 81 09/09/17 20:00 98.7 81 15 130/60 (83) 100 09/09/17 19:00 100 Mechanical Ventilator 40 09/09/17 18:00 78 09/09/17 16:17 100 40 09/09/17 16:15 40 09/09/17 16:00 98.7 73 15 114/56 (75) 100 09/09/17 16:00 73 09/09/17 14:00 72 09/09/17 14:00 72 Constitutional Vital Signs Date Time Temp Pulse Resp B/P (MAP) Pulse Ox O2 Delivery O2 Flow Rate FiO2 09/10/17 11:50 100 40 09/10/17 08:00 40 09/10/17 08:00 99.2 77 15 154/68 (96) 100 09/10/17 08:00 77 09/10/17 07:58 100 40 09/10/17 07:00 100 Mechanical Ventilator 40 09/10/17 06:00 88 09/10/17 04:00 40 09/10/17 04:00 90 09/10/17 04:00 98.7 87 15 166/73 (104) 99 09/10/17 03:23 98 40 09/10/17 02:00 88 09/10/17 00:00 40 09/10/17 00:00 80 09/10/17 00:00 98.8 81 15 140/63 (88) 100 09/09/17 23:54 100 40 09/09/17 22:00 82 09/09/17 20:30 100 40 09/09/17 20:00 40 09/09/17 20:00 81 09/09/17 20:00 98.7 81 15 130/60 (83) 100 09/09/17 19:00 100 Mechanical Ventilator 40 09/09/17 18:00 78 09/09/17 16:17 100 40 09/09/17 16:15 40 09/09/17 16:00 98.7 73 15 114/56 (75) 100 09/09/17 16:00 73 09/09/17 14:00 72 09/09/17 14:00 72 (Jessy Contreras) Review of Systems ROS Limitations: Intubated (Jessy Contreras) Physical Exam Ms. Mercado is intubated and sedated. Localizes to painful stimulii with all 4 extremities. She is slightly opening eyes to verbal stimulation. Not following commands. Cranial Nerves: Pupils equal, round, reactive to light. Eyes appear conjugated. There was no nystagmus, no papilledema. Face musculature appeared symmetrical at rest. Face sensation, olfaction, visual louise, and hearing cannot be adequately assessed due to his neurological condition. The patient has a corneal reflex. He has a gag reflex. Cervical Spine: soft, supple, without nuchal rigidity. Motor: muscle tone and bulk are normal. intermittent purposeful movements x 4 extremities, on soft restraints Reflexes: Deep tendon reflexes are 1+ and symmetrical in the biceps, triceps, and brachioradialis, bilaterally, in the upper extremities. In the lower extremities, the patellar and ankles are 1+, bilaterally. There is a bilateral plantar flexion response. There is no clonus or other abnormal reflexes noted. Sensory: On examination there is response to painful stimuli, localizing with both upper and lower extremities. Cerebellar: Examination cannot be adequately assessed due to the patient's neurological condition. (Jessy Contreras) Ms. Mercado is intubated and sedated. Localizes to painful stimulii with all 4 extremities. She is slightly opening eyes to verbal stimulation. Not following commands. Cranial Nerves: Pupils equal, round, reactive to light. Eyes appear conjugated. There was no nystagmus, no papilledema. Face musculature appeared symmetrical at rest. Face sensation, olfaction, visual louise, and hearing cannot be adequately assessed due to his neurological condition. The patient has a corneal reflex. He has a gag reflex. Cervical Spine: soft, supple, without nuchal rigidity. Motor: muscle tone and bulk are normal. intermittent purposeful movements x 4 extremities, on soft restraints Reflexes: Deep tendon reflexes are 1+ and symmetrical in the biceps, triceps, and brachioradialis, bilaterally, in the upper extremities. In the lower extremities, the patellar and ankles are 1+, bilaterally. There is a bilateral plantar flexion response. There is no clonus or other abnormal reflexes noted. Sensory: On examination there is response to painful stimuli, localizing with both upper and lower extremities. Cerebellar: Examination cannot be adequately assessed due to the patient's neurological condition. (Dax Garcia MD) Medications Current Medications Current Medications Medications (Trade) Dose Ordered Sig/Tonja Route PRN Reason Start Time Stop Time Status Last Admin Dose Admin Famotidine (Pepcid Inj) 20 mg Q12HR IV PUSH 09/09/17 02:00 09/10/17 08:00 Miscellaneous Information 1 Q361D XX 09/09/17 02:00 09/09/17 02:00 Chlorhexidine Gluconate (Chlorhexidine 2% Cloth) 3 pack Taper DAILY@04 TOP 09/09/17 04:00 09/05/18 03:59 09/10/17 00:42 Chlorhexidine Gluconate (Chlorhexidine 2% Cloth) 3 pack UNSCH PRN TOP HYGIENIC CARE 09/09/17 02:00 Senna/Docusate Sodium (Yamilet-Colace) 1 tab BID PO 09/09/17 09:00 09/10/17 08:00 Magnesium Hydroxide (Milk Of Magnesia Liq) 30 ml Q12H PRN PO Mild constipation 09/09/17 02:00 Sennosides (Senokot) 17.2 mg Q12H PRN PO Moderate constipation 09/09/17 02:00 Bisacodyl (Dulcolax Supp) 10 mg DAILY PRN RECTAL SEVERE CONSITIPATION 09/09/17 02:00 Lactulose (Lactulose Liq) 30 ml DAILY PRN PO SEVERE CONSITIPATION 09/09/17 02:00 Propofol 100 ml @ 2.019 mls/ hr TITRATE PRN IV SEDATION 09/09/17 02:00 09/10/17 06:01 Fentanyl Citrate 250 ml @ 5 mls/hr TITRATE PRN IV SEDATION 09/09/17 02:15 09/10/17 02:38 Levetriacetam 500 mg/Sodium Chloride 105 ml @ 420 mls/hr Q12HR IV 09/09/17 02:30 09/10/17 08:00 Sodium Chloride 188 meq/Sodium Chloride 1,047 ml @ 40 mls/hr Q24H IV 09/09/17 16:00 09/10/17 06:01 Potassium Chloride 100 ml @ 50 mls/hr Q2H PRN IV For Potassium 2.8 - 3.2 mEq/L 09/09/17 13:45 Potassium Chloride 100 ml @ 50 mls/hr Q2H PRN IV For Potassium 2.8 - 3.2 mEq/L 09/09/17 13:45 09/10/17 02:40 Potassium Bicarb/ Potassium Chloride (K-Lyte Cl Eff) 50 meq UNSCH PRN PO For Potassium 3.3 - 3.5 mEq/L 09/09/17 13:45 Potassium Chloride 100 ml @ 25 mls/hr UNSCH PRN IV For Potassium 3.3 - 3.5 mEq/L 09/09/17 13:45 Potassium Chloride 100 ml @ 50 mls/hr Q2H PRN IV For Potassium 3.3 - 3.5 mEq/L 09/09/17 13:45 Magnesium Sulfate 4 gm/Sodium Chloride 100 ml @ 50 mls/hr UNSCH PRN IV For Magnesium 0.9 - 1.1 mg/dL 09/09/17 13:45 Magnesium Oxide (Mag-Ox) 800 mg UNSCH PRN PO For Magnesium 1.2 - 1.6 mg/dL 09/09/17 13:45 Magnesium Sulfate 2 gm/Sodium Chloride 100 ml @ 50 mls/hr UNSCH PRN IV For Magnesium 1.2 - 1.6 mg/dL 09/09/17 13:45 Potassium Phosphate (K-Phos) 2,000 mg Q4H PRN PO For Phosphorus < 2.5 mg/dL 09/09/17 13:45 Sodium Phosphate 30 mmol/Sodium Chloride 250 ml @ 42 mls/hr UNSCH PRN IV For Phosphorus < 2.5 mg/dL 09/09/17 13:45 Potassium Phosphate (K-Phos) 2,000 mg UNSCH PRN PO/TUBE SEE LABEL COMMENTS 09/09/17 13:45 Potassium Phosphate 30 mmol/ Sodium Chloride 260 ml @ 42 mls/hr UNSCH PRN IV SEE LABEL COMMENTS 09/09/17 13:45 Metoprolol Tartrate (Lopressor Inj) 5 mg Q6H IV PUSH 09/10/17 11:00 09/10/17 10:37 Chlorhexidine Gluconate (Peridex 0.12% Liq) 15 ml BID@08,20 MT 09/10/17 20:00 (Jessy Contreras) Current Medications Current Medications Fentanyl Citrate (fentaNYL INJ) 100 mcg STK-MED ONCE .ROUTE ; Start 09/09/17 at 01:25; Stop 09/09/17 at 01:26; Status DC Iohexol (Omnipaque 350 Inj) 100 ml STK-MED ONCE IVCONTRAST Last administered on 09/09/17 01:48; Start 09/09/17 at 01:48; Stop 09/09/17 at 01:49; Status DC Sodium Chloride 1,000 ml @ 100 mls/hr Q10H IV Last administered on 09/09/17 12:59; Start 09/09/17 at 01:55; Stop 09/09/17 at 13:25; Status DC Famotidine (Pepcid Inj) 20 mg Q12HR IV PUSH Last administered on 09/11/17 09: 15; Start 09/09/17 at 02:00; Stop 09/11/17 at 14:59; Status DC Miscellaneous Information 1 Q361D XX Last administered on 09/09/17 02:00; Start 09/09/17 at 02:00 Chlorhexidine Gluconate (Chlorhexidine 2% Cloth) 3 pack Taper DAILY@04 TOP Last administered on 09/10/17 00:42; Start 09/09/17 at 04:00; Stop 09/05/18 at 03:59 Chlorhexidine Gluconate (Chlorhexidine 2% Cloth) 3 pack UNSCH PRN TOP HYGIENIC CARE; Start 09/09/17 at 02:00 Senna/Docusate Sodium (Yamilet-Colace) 1 tab BID PO Last administered on 20:32; Start 09/09/17 at 09:00 Magnesium Hydroxide (Milk Of Magnesia Liq) 30 ml Q12H PRN PO Mild constipation ; Start 09/09/17 at 02:00 Sennosides (Senokot) 17.2 mg Q12H PRN PO Moderate constipation; Start at 02:00 Bisacodyl (Dulcolax Supp) 10 mg DAILY PRN RECTAL SEVERE CONSITIPATION; Start 09/09/17 at 02:00 Lactulose (Lactulose Liq) 30 ml DAILY PRN PO SEVERE CONSITIPATION; Start 09/09 at 02:00 Propofol 100 ml @ 2.019 mls/ hr TITRATE PRN IV SEDATION Last administered on 09/10/17 06:01; Start 09/09/17 at 02:00; Stop 09/10/17 at 15:31; Status DC Fentanyl Citrate 250 ml @ 5 mls/hr TITRATE PRN IV SEDATION; Start 09/09/17 at 02:00; Stop 09/09/17 at 02:04; Status DC Fentanyl Citrate 250 ml @ 5 mls/hr TITRATE PRN IV SEDATION Last administered on 09/10/17 02:38; Start 09/09/17 at 02:15; Stop 09/10/17 at 15:31; Status DC Diltiazem HCl 125 mg/Sodium Chloride 125 ml @ 5 mls/hr TITRATE PRN IV Tachycardia; Start 09/09/17 at 02:30; Status Cancel Levetriacetam 500 mg/Sodium Chloride 105 ml @ 420 mls/hr Q12HR IV Last administered on 09/11/17t 20:34; Start 09/09/17 at 02:30 Nicardipine HCl 25 mg/Sodium Chloride 250 ml @ 50 mls/hr TITRATE PRN IV Blood Pressure Management; Start 09/09/17 at 03:45; Stop 09/09/17 at 09:27; Status DC Vancomycin HCl (Vancomycin Inj) 1,000 mg STK-MED ONCE .ROUTE ; Start 09/09/17 at 08:13; Stop 09/09/17 at 08:14; Status DC Thrombin (Thrombin Top Soln) 10,000 units STK-MED ONCE .ROUTE ; Start 09/09/17 at 08:13; Stop 09/09/17 at 08:14; Status DC Cefazolin Sodium/ Dextrose 50 ml @ As Directed STK-MED ONCE .ROUTE ; Start 09/14 at 08:13; Stop 09/09/17 at 08:14; Status DC Gelatin (Gelfoam 100 Top) 1 foam STK-MED ONCE .ROUTE ; Start 09/09/17 at 08:13 ; Stop 09/09/17 at 08:14; Status DC Furosemide (Lasix Inj) 40 mg STK-MED ONCE .ROUTE ; Start 09/09/17 at 08:14; Stop 09/09/17 at 08:15; Status DC Levetriacetam (Keppra Inj) 1,000 mg STK-MED ONCE IV ; Start 09/09/17 at 08:14; Stop 09/09/17 at 08:15; Status DC Bacitracin (Baciguent Oint) 15 applic STK-MED ONCE .ROUTE ; Start 09/09/17 at 08:14; Stop 09/09/17 at 08:15; Status DC Gentamicin Sulfate (Gentamicin Inj) 240 mg STK-MED ONCE .ROUTE ; Start at 08:14; Stop 09/09/17 at 08:15; Status DC Mannitol 100 ml @ As Directed STK-MED ONCE .ROUTE ; Start 09/09/17 at 08:14; Stop 09/09/17 at 08:15; Status DC Lidocaine/ Epinephrine (Xylocaine-Epi 1%-1:100,000 Inj) 20 ml STK-MED ONCE .ROUTE ; Start 09/09/17 at 08:15; Stop 09/09/17 at 08:16; Status DC Sodium Chloride 250 ml @ As Directed STK-MED ONCE .ROUTE ; Start 09/09/17 at 08:15; Stop 09/09/17 at 08:16; Status DC Sodium Chloride 188 meq/Sodium Chloride 1,047 ml @ 40 mls/hr Q24H IV Last administered on 09/10/17 20:50; Start 09/09/17 at 16:00; Stop 09/11/17 at 09 :29; Status DC Potassium Chloride 100 ml @ 50 mls/hr Q2H PRN IV For Potassium 2.8 - 3.2 mEq/ L Last administered on 09/11/17 18:01; Start 09/09/17 at 13:45 Potassium Chloride 100 ml @ 50 mls/hr Q2H PRN IV For Potassium 2.8 - 3.2 mEq/ L Last administered on 09/10/17 02:40; Start 09/09/17 at 13:45 Potassium Bicarb/ Potassium Chloride (K-Lyte Cl Eff) 50 meq UNSCH PRN PO For Potassium 3.3 - 3.5 mEq/L; Start 09/09/17 at 13:45 Potassium Chloride 100 ml @ 25 mls/hr UNSCH PRN IV For Potassium 3.3 - 3.5 mEq /L; Start 09/09/17 at 13:45 Potassium Chloride 100 ml @ 50 mls/hr Q2H PRN IV For Potassium 3.3 - 3.5 mEq/L ; Start 09/09/17 at 13:45 Magnesium Sulfate 4 gm/Sodium Chloride 100 ml @ 50 mls/hr UNSCH PRN IV For Magnesium 0.9 - 1.1 mg/dL; Start 09/09/17 at 13:45 Magnesium Oxide (Mag-Ox) 800 mg UNSCH PRN PO For Magnesium 1.2 - 1.6 mg/dL; Start 09/09/17 at 13:45 Magnesium Sulfate 2 gm/Sodium Chloride 100 ml @ 50 mls/hr UNSCH PRN IV For Magnesium 1.2 - 1.6 mg/dL; Start 09/09/17 at 13:45 Potassium Phosphate (K-Phos) 2,000 mg Q4H PRN PO For Phosphorus < 2.5 mg/dL; Start 09/09/17 at 13:45 Sodium Phosphate 30 mmol/Sodium Chloride 250 ml @ 42 mls/hr UNSCH PRN IV For Phosphorus < 2.5 mg/dL; Start 09/09/17 at 13:45 Potassium Phosphate (K-Phos) 2,000 mg UNSCH PRN PO/TUBE SEE LABEL COMMENTS; Start 09/09/17 at 13:45 Potassium Phosphate 30 mmol/ Sodium Chloride 260 ml @ 42 mls/hr UNSCH PRN IV SEE LABEL COMMENTS; Start 09/09/17 at 13:45 Sodium Chloride 188 meq/Sodium Chloride 1,047 ml @ 40 mls/hr Q24H IV ; Start 09/09/17 at 16:30; Stop 09/09/17 at 16:30; Status DC Pneumococcal Polyvalent Vaccine (Pneumovax-23 Inj) 25 mcg ONCE ONCE IM Last administered on 09/10/17 10:59; Start 09/10/17 at 10:00; Stop 09/10/17 at 10 :01; Status DC Sodium Chloride 1,000 ml @ 999 mls/hr Q1H1M IV Last administered on 05:17; Start 09/10/17 at 04:30; Stop 09/10/17 at 06:30; Status DC Metoprolol Tartrate (Lopressor Inj) 5 mg Q6H IV PUSH Last administered on 09/11 05:00; Start 09/10/17 at 11:00; Stop 09/11/17 at 14:59; Status DC Chlorhexidine Gluconate (Peridex 0.12% Liq) 15 ml BID@08,20 MT Last administered on 09/10/17 19:46; Start 09/10/17 at 20:00; Stop 09/11/17 at 14 :59; Status DC Furosemide (Lasix Inj) 20 mg ONCE ONCE IV PUSH Last administered on 10:36; Start 09/10/17 at 09:30; Stop 09/10/17 at 10:02; Status DC Hydralazine HCl (Apresoline Inj) 20 mg Q4H PRN IV PUSH SYS BP GREATER THAN 160 MMHG Last administered on 09/12/17 04:50; Start 09/10/17 at 13:45 Ondansetron HCl (Zofran Inj) 4 mg STK-MED ONCE .ROUTE Last administered on 15:00; Start 09/10/17 at 14:55; Stop 09/10/17 at 14:56; Status DC Morphine Sulfate (Morphine Inj) 2 mg STK-MED ONCE .ROUTE Last administered on 09/10/17 15:00; Start 09/10/17 at 14:56; Stop 09/10/17 at 14:57; Status DC Morphine Sulfate (Morphine Inj) 2 mg Q3H PRN IV PUSH PAIN SCALE 5 TO 10 Last administered on 09/11/17 07:00; Start 09/10/17 at 15:45; Stop 09/11/17 at 09 :28; Status DC Ondansetron HCl (Zofran Inj) 4 mg Q6H PRN IV PUSH NAUSEA OR VOMITING Last administered on 09/12/17 03:24; Start 09/10/17 at 15:45 Morphine Sulfate (Morphine Inj) 3 mg Q3H PRN IV PUSH BREAKTHROUGH PAIN Last administered on 09/12/17 02:36; Start 09/11/17 at 09:45 Oxycodone/ Acetaminophen (Percocet 5-325 Mg) 1 tab Q4H PRN PO pain 3-5; Start 09/11/17 at 09:30 Oxycodone/ Acetaminophen (Percocet 10-325 Mg) 1 tab Q4H PRN PO pain 6-10 Last administered on 09/12/17 04:49; Start 09/11/17 at 09:30 Lisinopril (Prinivil) 10 mg DAILY PO Last administered on 09/11/17 11:34; Start 09/11/17 at 09:30 Metoprolol Tartrate (Lopressor) 50 mg DAILY PO ; Start 09/11/17 at 09:30 Spironolactone (Aldactone) 25 mg DAILY PO Last administered on 09/11/17 11:33 ; Start 09/11/17 at 09:30 Venlafaxine HCl (Effexor Xr) 150 mg DAILY PO Last administered on 09/11/17 11 :33; Start 09/11/17 at 09:30 Trazodone HCl (Desyrel) 50 mg HS PO Last administered on 09/11/17 20:33; Start 09/11/17 at 21:00 Morphine Sulfate (Morphine Inj) 4 mg STK-MED ONCE .ROUTE ; Start 09/11/17 at 19 :42; Stop 09/11/17 at 19:43; Status DC Morphine Sulfate (Morphine Inj) 4 mg NOW ONCE IV Last administered on 19:40; Start 09/11/17 at 20:00; Stop 09/11/17 at 20:01; Status DC Iohexol (Omnipaque 350 Inj) 75 ml STK-MED ONCE IVCONTRAST Last administered on 09/11/17 21:40; Start 09/11/17 at 21:40; Stop 09/11/17 at 21:41; Status DC Lorazepam (Ativan) 1 mg NOW ONCE PO Last administered on 09/12/17 05:55; Start 09/12/17 at 05:30; Stop 09/12/17 at 05:31; Status DC Buspirone HCl (Buspar) 5 mg TID PO ; Start 09/12/17 at 09:00 Morphine Sulfate (Oramorph Sr) 30 mg DAILY PO ; Start 09/12/17 at 09:00 (Dax Garcia MD) Medical Decision Making MDM Remarks 67 y/o female ground level fall, with TBI, subdural hematoma (Jessy Contreras) MDM Remarks Last [address] 09/11/17 0800 Signed Impressions: Service Date/Time: August 06:13 - CONCLUSION: Stable size to the multifocal right subdural hematomas and intraventricular blood. Amador Feldman MD Chest X-Ray 09/11/17 0600 Signed Impressions: Service Date/Time: August 02:42 - CONCLUSION: Improving aeration of the lower lungs with some mild residual interstitial prominence in the left mid and lower lung. Amador Feldman MD Neck CTA 09/11/17 0000 Signed Impressions: Service Date/Time: August 21:22 - CONCLUSION: 1. Bilateral calcified plaque and approximately 70%% stenoses of the proximal internal carotid arteries bilaterally. 2. High-grade stenosis of right external carotid artery at its origin. Lamonte Bellamy MD Carotid Artery Ultrasound 09/11/17 0000 Signed Impressions: Service Date/Time: Sunday, September 10, 2017 14:53 - CONCLUSION: 1. Significant calcified plaque in both carotid systems. 2. High-grade stenosis in the proximal right ICA greater than 70%%. 3. But severe stenosis in the proximal left ICA in the 50-69%% range. 4. Antegrade flow both vertebral arteries. Aditya Whitehead MD (Dax Garcia MD) Plan Plan Remarks cont neuro checks in ISC cont nonsurgical mgt follow up CT Head tomorrow am nonchemical dvt prophylaxis in view of ICH protonix for stress ulcer proph critical care mgt Dr. Garcia dw at bedside (Jessy Contreras) Attending Statement Severe traumatic brain injury. Continue neuro checks. Continue nonoperative treatment Subdural Hematoma. Non surgical management. Follow up brain in AM Acute respiratory failure. wean Ventilato. Continue aggressive pulmonary toilette, nasotracheal suction, and breathing treatments with nebulizers. Nutrition. tube feedings acetaminophen/cooling blanket as needed for temperature greater than 100.4 Status post valve replacement. Hold anticoagulation Renal: - butler - strict i/o's Renal. monitor closely urine output, BUN and creatinine Butler in place. Monitor intake and output. Monitor electrolytes and replace as indicated per ICU electrolyte replacement protocol. ENDO: Monitor bedside glucose and initiate low-dose insulin sliding scale as indicated for glucose greater than 180 central venous line A-line insertion for hemodynamic monitoring Infectious disease. monitor for signs of infection Protonix for stress ulcer prophylaxis Ulises hose and SCD's for DVT prophylaxis. Discussed with Dr Briggs The exam, history, and the medical decision-making described in the above note were completed with the assistance of the mid-level provider. I reviewed and agree with the findings presented. I attest that I had a [id number] encounter with the patient on the same day, and personally performed and documented my assessment and findings in the medical record. (Dax Garcia MD) Jessy Contreras Sep 10, 2017 13:36 Dax Garcia MD Sep 12, 2017 08:46
--- NOTE | 2017-09-10 13:47 | HHI.CCPN ---
Subjective Remarks/Hospital Course 67 year old female presents as a transfer from [facility] in [facility] related to a fall in which she sustained an intracranial hemorrhage. The patient according to the record at [facility] is on aspirin and Plavix. The patient was seen earlier yesterday related to a fall and at that time had a CT scan of the brain that was negative. The patient then fell again after going home. According to the record the patient initially fell forward the first time striking her head and has right-sided forehead contusion associated with abrasion, and then the patient fell backwards the second time striking the back of her head. The patient had complained of headache and neck pain. The patient proceeded to have intractable nausea and vomiting and was intubated to protect her airway. At the other facility the patient was reportedly given morphine for pain, Zofran for nausea. With intractable nausea the patient was given Phenergan. The patient was then intubated with RSI and given etomidate and succinylcholine. The patient has an endotracheal tube in place on arrival. She is moving all her extremities in a purposeful way and attempting to pull out the endotracheal tube. SUBJ 09/10: Intubated sedated. On sedation hold follows command with RUE and bilateral lower extremity. Purposefully moves left upper extremity. Patient had a recent TAVR by Dr. Dubon. No evidence of Heart Block Objective Vital Signs Date Time Temp Pulse Resp B/P (MAP) Pulse Ox O2 Delivery O2 Flow Rate FiO2 09/10/17 13:36 40 09/10/17 13:30 100 09/10/17 08:00 99.2 77 15 154/68 (96) 09/10/17 07:00 Mechanical Ventilator 09/09/17 01:16 15.00 Intake and Output 09/10/17 09/10/17 09/11/17 08:00 16:00 00:00 Intake Total 490 ml Output Total 300 ml Balance 190 ml Result Diagram: 09/10/17 0430 09/10/17 0430 Imaging Last 24 hours Impressions Pelvis X-Ray 09/09/17123 Signed Impressions: Service Date/Time: Saturday, September 09, 2017 01:22 - CONCLUSION: No fracture seen. Amorphous calcification superior to the left greater trochanter is of uncertain significance. CT is pending. Amador Feldman MD Maxillofacial CT 09/09/17123 Signed Impressions: Service Date/Time: Saturday, September 09, 2017 01:32 - CONCLUSION: 1. No facial bone fracture seen. 2. Mild ethmoid sinus disease. Amador Feldman MD Head CT 09/09/17123 Signed Impressions: Service Date/Time: Saturday, September 09, 2017 01:32 - CONCLUSION: 1. Evidence of closed head injury with 1 cm right subdural hematoma extending from the high convexity, subarachnoid blood along the right tentorium and interhemispheric fissure, right hemispheric edema with 3 mm midline shift towards the left, and intraventricular blood in the left occipital horn. 2. Right frontoparietal and right occipital scalp hematomas. No skull fracture seen. Amador Feldman MD Chest X-Ray 09/09/17123 Signed Impressions: Service Date/Time: Saturday, September 09, 2017 01:22 - CONCLUSION: The lungs are clear. No evidence of pneumothorax. Amador Feldman MD Chest CT 09/09/17123 Signed Impressions: Service Date/Time: Saturday, September 09, 2017 01:44 - CONCLUSION: 1. No evidence pneumothorax. 2. Bibasilar atelectasis. 3. Focal 12 mm opacity lateral left mid lung may represent pulmonary contusion, focal infiltrate, or mass. Recommend followup scan to assure resolution. Amador Feldman MD Cervical Spine CT 09/09/17123 Signed Impressions: Service Date/Time: Saturday, September 09, 2017 01:32 - CONCLUSION: No evidence of compression deformity or spondylolisthesis. Amador Feldman MD Abdomen/Pelvis CT 09/09/17123 Signed Impressions: Service Date/Time: Saturday, September 09, 2017 01:44 - CONCLUSION: Negative trauma CT abdomen/pelvis with contrast. Amador Feldman MD Objective Remarks General: The patient is sedated and intubated, with purposeful movements. Head and Neck exam: Head is normocephalic, evidence of trauma with swelling along the right side of the forehead with ecchymosis noted an overlying abrasion. No facial bone tenderness or increased facial bone mobility noted on palpation. Eyes: Pupils are equal round and reactive to light and 6 mm bilaterally. Nose: Midline septum with pink mucous membranes Mouth: Moist mucus membranes. Posterior oropharynx is unable to be fully visualized as the patient has endotracheal tube in place. Neck: The patient is immobilized in a cervical collar. No tracheal deviation. The trachea appears midline. Cardiovascular: Regular rate and rhythm no gallops, or rubs. Grade 2 systolic murmur heard in all areas Lungs: Clear to auscultation bilaterally Abdomen: Soft, without tenderness to palpation in all 4 quadrants of the abdomen. No guarding, rebound, or rigidity. No erythema or ecchymosis noted. Extremities:2+ pulses in all 4 extremities. No extremity tenderness or deformity noted on palpation or passive range of motion. Neurologic Exam: On sedation hold patient moves all extremities. Follows commands on right upper extremity and bilateral lower extremity Urinary Catheter: Yes Assessment to: Continue Vascular Central Line Catheter: Yes Assessment to: Continue A/P Assessment and Plan Respiratory failure - Sedated for an airway protection, hold sedation for SBT - Neuro exam improving - Vent bundle - Propofol for vent synchrony - DuoNeb's when necessary Traumatic brain injury - Neurosurgical consultation, follow-up CT improving subdural hemorrhage nonsurgical management - Frequent neuro checks per ICU protocol - SBP goal less than 140 - Transfuse platelets to keep count above 100 Hypertension - Cardene drip - SBP goal less than 140 Recent TAVR - Dr. Dubon consulted. F/U Echo - carotid US - Hold antiplatelet therapy at this time Hypothyroidism - Resume levothyroxine per home dose when available Dyslipidemia - Resume home meds when available Thrombocytopenia - Transfuse platelets to keep platelet count above 100 used to intracranial bleed GERD - IV Pepcid DVT GI prophylaxis - Teds SCDs - No pharmacological DVT prophylaxis due to ICH - Pepcid Critical Care: Level 3. Javi Mcclelland MD Sep 10, 2017 13:47
--- NOTE | 2017-09-10 14:23 | EKG ---
Date Performed: 09/10/2017 Time Performed: 12:45:40 PTAGE: 67 years EKG: Sinus rhythm . Possible anteroseptal infarct - age undetermined Abnormal ECG NO PREVIOUS TRACING DOCTOR: Heriberto Garcia Interpretating Date/Time 09/10/2017 14:23:15
--- NOTE | 2017-09-10 14:23 | HHI.CCPN ---
Subjective Brief History 67 year old female presents as a transfer from [facility] in [facility] related to a fall in which she sustained an intracranial hemorrhage. The patient according to the record at [facility] is on aspirin and Plavix. The patient was seen earlier yesterday related to a fall and at that time had a CT scan of the brain that was negative. The patient then fell again after going home. According to the record the patient initially fell forward the first time striking her head and has right-sided forehead contusion associated with abrasion, and then the patient fell backwards the second time striking the back of her head. The patient had complained of headache and neck pain. The patient proceeded to have intractable nausea and vomiting and was intubated to protect her airway. At the other facility the patient was reportedly given morphine for pain, Zofran for nausea. With intractable nausea the patient was given Phenergan. The patient was then intubated with RSI and given etomidate and succinylcholine. The patient has an endotracheal tube in place on arrival. She is moving all her extremities in a purposeful way and attempting to pull out the endotracheal tube. Intubated sedated. On sedation hold follows command with RUE and bilateral lower extremity. Purposefully moves left upper extremity. Patient had a recent TAVR by Dr. Dubon. Patient diagnosed with subdural hematoma 24 Hour Review/Hospital Course 09/09 SubDural hematoma, thrombocytopenia Patient is purposeful off sedation Na135, likely chronic hemodynamically normal CT of the head is stable Received platelets for thrombocytopenia in light of SDH 09/10/17 Overnight patient has been stable and the appearance of subdural hematoma has somewhat diminished Patient is moving all 4 extremities and appears to be communicating while intubated Moves all 4 extremities Pupils equal reactive and patient follows commands on the vent Tolerates CPAP Hemodynamically intact Platelet count increased based on the transfusion of the same Objective Vital Signs Date Time Temp Pulse Resp B/P (MAP) Pulse Ox O2 Delivery O2 Flow Rate FiO2 09/10/17 13:36 40 09/10/17 13:30 100 09/10/17 10:00 72 09/10/17 08:00 99.2 15 154/68 (96) 09/10/17 07:00 Mechanical Ventilator 09/09/17 01:16 15.00 Intake and Output 09/10/17 09/10/17 09/11/17 08:00 16:00 00:00 Intake Total 490 ml Output Total 300 ml Balance 190 ml Result Diagram: 09/10/17 0430 09/10/17 0430 Imaging Last 24 hours Impressions Chest X-Ray 09/10/17 0000 Signed Impressions: Service Date/Time: Sunday, September 10, 2017 04:44 - CONCLUSION: Increasing non-consolidative infiltrates in the left medial lung base. Amador Feldman MD Exam HEAD OF ADVERTISING 09/10/17 Overnight patient has been stable and the appearance of subdural hematoma has somewhat diminished Patient is moving all 4 extremities and appears to be communicating while intubated Moves all 4 extremities Pupils equal reactive and patient follows commands on the vent Tolerates CPAP Hemodynamically intact Platelet count increased based on the transfusion of the same Hemodynamic/Cardiac Hemodynamically patient is intact and well volume loaded Pulmonary/Respiratory Bilateral breath sounds tolerating CPAP and at this point probably tolerating extubation Abdomen/GI Nutrition Abdomen is soft no signs of trauma Renal/I&O Good urine output preserve renal function Hematologic Hemoglobin is stable patient's thrombocytopenia has been corrected with transfusion Assessment and Plan Plan Continue neuro checks of sedation start wean process in the morning remained stable .start Tube feeds discuss chemical prophylaxis with neurosurgeon in the next 2 days 2% normal saline-to achieve normal sodium in light of traumatic brain injury Discussed with neurosurgeon Family updated at the bedside Elana Villagran MD Sep 10, 2017 14:23
[2017-09-10] MEDS ORDERED: ONDANSETRON HCL 4 MG/2 ML VIAL ONE (14:55)
[2017-09-10] MEDS ORDERED: MORPHINE SULFATE 2 MG/ML INJ ONE (14:56)
[2017-09-10] MEDS: hydrALAZINE HCL 20 MG/ML VIAL IV PUSH PRN (15:00)
--- NOTE | 2017-09-10 15:40 | ECHRPT ---
Indication: Trauma CONCLUSIONS The left ventricular systolic function is normal with an estimated ejection fraction in the range of 55-60%. Wall thickness is normal. Normal left ventricular size. Mild mitral valve regurgitation. Calcification of both mitral valve leaflets. There is mild to moderate tricuspid valve regurgitation. The estimated pulmonary arterial pressure is 49 mmHg. Status-post aortic valve replacement, normal valve function. BP: / HR: 93 Rhythm: Sinus MEASUREMENTS (Male / Female) Normal Values Technical Quality:Fair 2D ECHO LV Diastolic Diameter PLAX 4.3 cm 4.2 - 5.9 / 3.9 - 5.3 cm LV Systolic Diameter PLAX 3.3 cm IVS Diastolic Thickness 0.9 cm 0.6 - 1.0 / 0.6 - 0.9 cm LVPW Diastolic Thickness 0.9 cm 0.6 - 1.0 / 0.6 - 0.9 cm LV Relative Wall Thickness 0.4 LVOT Diameter 1.8 cm M-MODE Aortic Root Diameter MM 2.0 cm LA Systolic Diameter MM 4.4 cm LA Ao Ratio MM 2.2 AV Cusp Separation MM 1.5 cm DOPPLER AV Peak Velocity 235.5 cm/s AV Peak Gradient 22.2 mmHg AV Mean Gradient 12.7 mmHg AV Velocity Time Integral 47.2 cm LVOT Peak Velocity 187.0 cm/s LVOT Peak Gradient 14.0 mmHg AV Area Cont Eq pk 2.0 cm MV Peak Velocity 187.0 cm/s MV Peak Gradient 14.0 mmHg MV Mean Velocity 106.0 cm/s MV Mean Gradient 5.0 mmHg MR Peak Velocity 511.0 cm/s MR Peak Gradient 104.4 mmHg Mitral E Point Velocity 133.0 cm/s Mitral A Point Velocity 108.0 cm/s Mitral E to A Ratio 1.2 LV E' Lateral Velocity 12.0 cm/s Mitral E to LV E' Lateral Ratio 11.1 LV E' Septal Velocity 8.5 cm/s Mitral E to LV E' Septal Ratio 15.7 TR Peak Velocity 311.0 cm/s TR Peak Gradient 38.7 mmHg Right Atrial Pressure 10.0 mmHg Pulmonary Artery Systolic Pressu 48.7 mmHg Right Ventricular Systolic Press 48.7 mmHg PV Peak Velocity 172.0 cm/s PV Peak Gradient 11.8 mmHg FINDINGS LEFT VENTRICLE The left ventricular systolic function is normal with an estimated ejection fraction in the range of 55-60%. Wall thickness is normal. Normal left ventricular size. RIGHT VENTRICLE Normal right ventricular size and systolic function. LEFT ATRIUM The left atrial size is normal. RIGHT ATRIUM The right atrial size is normal. ATRIAL SEPTUM Normal atrial septal thickness without atrial level shunting by limited color doppler interrogation. AORTA The aortic root and proximal ascending aorta are normal in size on limited imaging. MITRAL VALVE Mild mitral valve regurgitation. Calcification of both mitral valve leaflets. AORTIC VALVE Status-post aortic valve replacement. TRICUSPID VALVE There is mild to moderate tricuspid valve regurgitation. The estimated pulmonary arterial pressure is 48.7 mmHg. PULMONARY VALVE No pulmonary valve regurgitation or stenosis. VESSELS The inferior vena cava is normal in size. PERICARDIUM No pericardial effusion. Dez Hong MD, FACC (Electronically Signed) Final Date:10 September 2017 15:39
--- NOTE | 2017-09-10 15:49 | MB ---
cc: ALETHEA DEMPSEY DATE OF CONSULTATION: 09/10/2017 1952 REASON FOR CONSULTATION Status post fall. HISTORY OF PRESENT ILLNESS 67-year-old female, known to me, recent TAVR in the setting of severe symptomatic aortic stenosis. The patient underwent procedure on the 08/13/2017 through a cutdown in the left subclavian and she did well after the procedure and was discharged home. Today she presents as a transfer from [facility] secondary to a fall where she sustained an intracranial hemorrhage. According to reports the patient went to the emergency department status post fall, she got evaluated, went home and then fell again. Events were associated also with intractable nausea, vomiting, she was intubated for airway protection and transferred to [facility] for further management and evaluation. Here she was found to have a small subdural hematoma with also subarachnoid blood on the right tentorium and interhemispheric fissure, with midline shift towards the left. She was seen by neurosurgery and she has been consulted to cardiology for further management and evaluation. REVIEW OF SYSTEMS Negative except for what is mentioned in HPI. PAST MEDICAL HISTORY 1. Breast cancer. 2. Hypothyroid disorder. 3. Hypertension. 4. Dyslipidemia. 5. GERD. 6. Status post TAVR. 7. Congestive heart failure. PAST SURGICAL HISTORY 1. Lymph node resection in the right axilla related to breast cancer. 2. Percutaneous aortic valve replacement. MEDICATION Cardiac medications: Aspirin and Plavix. FAMILY HISTORY Unobtainable. SOCIAL HISTORY Negative for alcohol, tobacco or illicit drug use. PHYSICAL EXAMINATION VITAL SIGNS: Temperature 99, respiratory rate 15, heart rate 72, blood pressure 154/68, O2 sat 100% on mechanical ventilation. GENERAL: She is sedated, intubated, in no acute distress. NECK: No JVD. No carotid bruits. HEART: Regular rate and rhythm. There is 1/6 systolic ejection murmur. No rubs or gallops. LUNGS: Vented, poor inspiratory effort. ABDOMEN: Benign. EXTREMITIES: No cyanosis or edema. Pulses throughout. LABORATORY DATA CBC hemoglobin 10, hematocrit 29, INR 1.2. Chemistries show 138, potassium 3.6 , BUN 4, creatinine 0.55. EKG: shows sinus rhythm. No AV blocks or tachy-mena arrhythmias. IMAGING STUDIES -Chest x-ray showed infiltrates in the left middle lung. -Abdomen and pelvis CT is unremarkable. -Cervical spine CT is unremarkable. -Chest CT shows no evidence of pneumothorax, there is atelectasis, there is a focal 12 mm opacity lateral left mid lung which may represent infiltrate, contusion or mass. -Head CT shows evidence of a closed head injury with a 1 cm right subdural hematoma extending from the high convexity, subarachnoid blood on the right tentorium and interhemispheric fissure, right hemispheric edema with 3-mm midline shift towards the left and intraventricular blood in the left occipital horn, there is a right frontal parietal and right occipital scalp hematomas, no fractures. -Maxillofacial CT is unremarkable. -Pelvis CT is unremarkable. ASSESSMENT/PLAN 67-year-old female status post recent percutaneous aortic valve replacement through a cutdown, on chronic aspirin and Plavix, admitted after a fall, sustaining brain injury/bleeding. Currently she remains afebrile and hemodynamically stable and EKG is unremarkable. There is no signs of tachy- mena arrhythmias either on the EKG or on the telemetry monitoring, however I will consult EP Dr. Downs for EPS evaluation in the setting of recent TAVR. Per reports there is no cardiovascular complaints at home. At this point I would continue her on telemetry monitoring. Hold aspirin and Plavix given bleed and restart when cleared from neurosurgery standpoint and continue aggressive medical management for CAD with outpatient medications. Echo has been ordered and is pending the results. Thank you for the opportunity to take part in the care of this patient. MD RIYA Lopez/TLJulisa /2:26 PM /3:11 PM LARY
--- NOTE | 2017-09-10 16:45 | PD.CONS ---
HPI Service Rehabilitation Medicine Consult Requested By [facility] trauma service Reason for Consult Comprehensive rehabilitation evaluation. Primary Care Physician Zachery Mendiola MD History of Present Illness Carolyn Mercado is a 67-year-old female who was initially seen in the [facility] ED after fall 09/09/17 and left AMA but then sustained a second fall and re-presented with intractable nausea. She was found to have subdural hematoma. She was intubated and transferred to [facility] 09/09/17. Head CT showed evidence of closed head injury with 1 cm right subdural hematoma extending from the high convexity, subarachnoid blood along the right tentorium and interhemispheric fissure, right hemispheric edema with 3 mm midline shift towards the left, and intraventricular blood in the left occipital horn and right frontoparietal and right occipital scalp hematomas. No skull fracture noted. Treated nonsurgically and follow-up head CT in a.m. Review of Systems ROS Limitations: Clinical Condition, Intubated Past Family Social History Allergies: Coded Allergies: No Allergy Information Available (Unverified , 09/09/17) n Past Medical History Breast cancer Hypothyroidism Hypertension CHF Hyperlipidemia GERD Past Surgical History TAVR Lymph node resection right axilla related to breast cancer. Current Medications Current Medications Medications (Trade) Dose Ordered Sig/Tonja Route Start Time Stop Time Status Last Admin (Pepcid Inj) 20 mg Q12HR IV PUSH 09/09/17 02:00 09/10/17 08:00 Miscellaneous Information 1 Q361D XX 09/09/17 02:00 09/09/17 02:00 (Chlorhexidine 2% Cloth) 3 pack Taper DAILY@04 TOP 09/09/17 04:00 09/05/18 03:59 09/10/17 00:42 (Chlorhexidine 2% Cloth) 3 pack UNSCH PRN TOP 09/09/17 02:00 (Yamilet-Colace) 1 tab BID PO 09/09/17 09:00 09/10/17 08:00 (Milk Of Magnesia Liq) 30 ml Q12H PRN PO 09/09/17 02:00 (Senokot) 17.2 mg Q12H PRN PO 09/09/17 02:00 (Dulcolax Supp) 10 mg DAILY PRN RECTAL 09/09/17 02:00 (Lactulose Liq) 30 ml DAILY PRN PO 09/09/17 02:00 Levetriacetam 500 mg/Sodium Chloride 105 ml @ 420 mls/hr Q12HR IV 09/09/17 02:30 09/10/17 08:00 Sodium Chloride 188 meq/Sodium Chloride 1,047 ml @ 40 mls/hr Q24H IV 09/09/17 16:00 09/10/17 06:01 Potassium Chloride 100 ml @ 50 mls/hr Q2H PRN IV 09/09/17 13:45 Potassium Chloride 100 ml @ 50 mls/hr Q2H PRN IV 09/09/17 13:45 09/10/17 02:40 (K-Lyte Cl Eff) 50 meq UNSCH PRN PO 09/09/17 13:45 Potassium Chloride 100 ml @ 25 mls/hr UNSCH PRN IV 09/09/17 13:45 Potassium Chloride 100 ml @ 50 mls/hr Q2H PRN IV 09/09/17 13:45 Magnesium Sulfate 4 gm/Sodium Chloride 100 ml @ 50 mls/hr UNSCH PRN IV 09/09/17 13:45 (Mag-Ox) 800 mg UNSCH PRN PO 09/09/17 13:45 Magnesium Sulfate 2 gm/Sodium Chloride 100 ml @ 50 mls/hr UNSCH PRN IV 09/09/17 13:45 (K-Phos) 2,000 mg Q4H PRN PO 09/09/17 13:45 Sodium Phosphate 30 mmol/Sodium Chloride 250 ml @ 42 mls/hr UNSCH PRN IV 09/09/17 13:45 (K-Phos) 2,000 mg UNSCH PRN PO/TUBE 09/09/17 13:45 Potassium Phosphate 30 mmol/ Sodium Chloride 260 ml @ 42 mls/hr UNSCH PRN IV 09/09/17 13:45 (Lopressor Inj) 5 mg Q6H IV PUSH 09/10/17 11:00 09/10/17 10:37 (Peridex 0.12% Liq) 15 ml BID@08,20 MT 09/10/17 20:00 (Apresoline Inj) 20 mg Q4H PRN IV PUSH 09/10/17 13:45 09/10/17 15:00 (Morphine Inj) 2 mg Q3H PRN IV PUSH 09/10/17 15:45 (Zofran Inj) 4 mg Q6H PRN IV PUSH 09/10/17 15:45 Family History Mother: , cardiac arrest Father: , cancer Social History Patient quit tobacco 15 years ago. Occasional alcohol use. Prior to admission she was using a cane to ambulate. She lives with her in [place], [place] in a mobile home with 3 steps to enter Exam I&O / VS Vital Signs Date Time Temp Pulse Resp B/P (MAP) Pulse Ox O2 Delivery O2 Flow Rate FiO2 09/10/17 14:30 100 Nasal Cannula 3 09/10/17 14:30 100 Nasal Cannula 3.00 09/10/17 14:25 100 40 09/10/17 13:36 40 09/10/17 13:30 100 40 09/10/17 12:00 40 09/10/17 11:50 100 40 09/10/17 10:00 72 09/10/17 08:00 40 09/10/17 08:00 99.2 77 15 154/68 (96) 100 09/10/17 08:00 77 09/10/17 07:58 100 40 09/10/17 07:00 100 Mechanical Ventilator 40 09/10/17 06:00 88 09/10/17 04:00 40 09/10/17 04:00 90 09/10/17 04:00 98.7 87 15 166/73 (104) 99 09/10/17 03:23 98 40 09/10/17 02:00 88 09/10/17 00:00 40 09/10/17 00:00 80 09/10/17 00:00 98.8 81 15 140/63 (88) 100 09/09/17 23:54 100 40 09/09/17 22:00 82 09/09/17 20:30 100 40 09/09/17 20:00 40 09/09/17 20:00 81 09/09/17 20:00 98.7 81 15 130/60 (83) 100 09/09/17 19:00 100 Mechanical Ventilator 40 09/09/17 18:00 78 General: Intubated, No acute distress Respiratory: Lungs CTA, Non-labored respirations, BS equal Gastrointestinal: Positive Bowel Sounds, Non-Distended Cardiovascular: Normal rate, Regular Rhythm Orientation: unable to asses Self, unable to asses Place Neurologic: Pupils (PERRLA), Facial Symmetry, Other (spontaneously moving all extremities; not following commands) DTRs: Normal Babinski: Positive (bilaterally) Clonus: Positive (1-2 beats) Assessment and Plan Diagnosis: (1) Traumatic brain injury ICD Codes: S06.9X9A - Unspecified intracranial injury with loss of consciousness of unspecified duration, initial encounter Status: Acute Qualifiers: Encounter type: initial encounter (2) Fall ICD Codes: W19.XXXA - Unspecified fall, initial encounter Qualifiers: Encounter type: initial encounter Qualified Codes: W19.XXXA - Unspecified fall, initial encounter Assessment 1. Fall 2 on 09/09/17 with traumatic brain injury including 1 cm right subdural hematoma extending from the high convexity, subarachnoid blood along the right tentorium and interhemispheric fissure, right hemispheric edema with 3 mm midline shift towards the left, and intraventricular blood in the left occipital horn and right frontoparietal and right occipital scalp hematomas. Treated nonsurgically. Now [place] 2 2. TAVR 3. Breast cancer 4. Hypothyroidism 5. Hypertension 6. CHF 7. Hyperlipidemia 8. GERD Plan 1. Physical therapy is providing range of motion 2. Occupational therapy for upper extremity range of motion progressing ADLs as appropriate 3. Anticipate patient will need speech therapy for swallow and cognitive evaluation 4. SCDs in place for DVT prophylaxis 5. Continue to reposition every 2 hours and monitor skin carefully for breakdown 6. Anticipate patient will need ongoing inpatient rehabilitation at discharge. Will follow level of care in conjunction with case management 7. Rehabilitation plan of care discussed with patient's and questions answered Thank you for this consult Naz Dover MD Sep 10, 2017 16:45
[2017-09-10] MEDS ORDERED: FOLI400T PO (19:03)
[2017-09-10] MEDS ORDERED: methotrexate (19:04)
[2017-09-10] MEDS ORDERED: ONDA8TAB7 PO (19:35)
[2017-09-10] MEDS ORDERED: LISI10TA3 PO (19:35)
[2017-09-10] MEDS ORDERED: MONT10TA4 PO (19:35)
[2017-09-10] MEDS ORDERED: ASPI1TAB57 PO (19:35)
[2017-09-10] MEDS ORDERED: trazodone (19:35)
[2017-09-10] MEDS ORDERED: [UNRECOGNIZED DRUG - OTHER] (19:35)
[2017-09-10] MEDS ORDERED: SPIR25TA PO (19:35)
[2017-09-10] MEDS ORDERED: [UNRECOGNIZED DRUG - OTHER] (19:35)
[2017-09-10] MEDS ORDERED: METO50TA PO (19:35)
[2017-09-10] MEDS ORDERED: BUSP5TAB PO (19:35)
[2017-09-10] MEDS ORDERED: CLOP75TA PO (19:35)
[2017-09-10] MEDS ORDERED: VENL150C39 PO (19:35)
[2017-09-10] MEDS ORDERED: MORP-44 PO (19:35)
[2017-09-10] MEDS ORDERED: METF500T PO (19:35)
[2017-09-10] MEDS ORDERED: TRAM50TA PO (19:35)
[2017-09-10] MEDS: CHLORHEXIDINE 0.12% (ORAL KIT) 15 ML CUP MT SCH (19:46)
[2017-09-10] MEDS: MORPHINE SULFATE 2 MG/ML INJ IV PUSH PRN (19:48)
[2017-09-11] VITALS (13 sets, daily range): BP systolic 133–153; BP diastolic 52–92; PULSE 62–93; RESP 20–29; TEMP 97.4–98.7; O2SAT 91–100
[2017-09-11] MEDS: ONDANSETRON HCL 4 MG/2 ML VIAL IV PUSH PRN ×2 (02:21→19:03)
[2017-09-11] MEDS: MORPHINE SULFATE 2 MG/ML INJ IV PUSH PRN ×5 (02:22→21:59)
--- NOTE | 2017-09-11 04:21 | RADRPT ---
EXAM DATE/TIME: 09/11/2017 02:42 [facility] COMPARISON: CHEST SINGLE AP, September 10, 2017, 4:44. INDICATIONS : Shortness of breath MEDICAL HISTORY : Non-responsive SURGICAL HISTORY : Non-responsive ENCOUNTER: Subsequent ACUITY: 3 days PAIN SCORE: Non-responsive. LOCATION: Bilateral chest FINDINGS: The lungs are symmetrically aerated. No consolidative infiltrates seen. There is some mild indistin ctness of the bronchopulmonary markings of the left lower lung, improved in appearance when compared to prior. Interval extubation and removal of gastric tube. No evidence of pneumothorax. The heart is normal size. CONCLUSION: Improving aeration of the lower lungs with some mild residual interstitial prominence in the left mid and lower lung. Amador Feldman MD on September 11, 2017 at 4:19 Board Certified Radiologist. This report was verified electronically.
[2017-09-11] MEDS: METOPROLOL TARTRATE 5 MG/5 ML VIAL IV PUSH SCH ×2 (05:00→11:00)
[2017-09-11 05:58] LABS: AUTOMATED NEUTROPHIL # 7.3 TH/MM3 (1.8-7.7); BASOPHIL % 0.3 % (0.0-2.0); EOSINOPHIL % 0.1 % (0.0-4.0); HEMATOCRIT 29.4 % (35.0-46.0); LYMPH % 7.2 % (9.0-44.0); LYMPHOCYTE # 0.6 TH/MM3 (1.0-4.8); MEAN CELL VOLUME 98.6 FL (80.0-100.0); MEAN CORPUSCULAR HEMOGLOBIN 32.8 PG (27.0-34.0); MEAN CORPUSCULAR HGB CONC 33.3 % (32.0-36.0); MONO % 8.6 % (0.0-8.0); NEUT % 83.8 % (16.0-70.0); PLATELET COUNT 76 TH/MM3 (150-450); RED BLOOD COUNT 2.98 MIL/MM3 (4.00-5.30); RED CELL DISTRIBUTION WIDTH 16.4 % (11.6-17.2); WHITE BLOOD COUNT 8.7 TH/MM3 (4.0-11.0)
[2017-09-11 06:15] LABS: HEMO FLAGS AUTO DIFF
[2017-09-11 06:28] LABS: BICARBONATE 23.5 MEQ/L (21.0-32.0)
[2017-09-11 06:51] LABS: CALCIUM-PROTEIN CORRECTED 8.2 MG/DL (8.5-10.1)
--- NOTE | 2017-09-11 07:02 | RADRPT ---
EXAM DATE/TIME: 09/11/2017 06:13 [facility] COMPARISON: CT BRAIN W/O CONTRAST, September 09, 2017, 8:44. INDICATIONS : Subdural hematoma. RADIATION DOSE: 34.27 CTDIvol (mGy) MEDICAL HISTORY : Non-responsive. SURGICAL HISTORY : Non-responsive. ENCOUNTER: Subsequent ACUITY: 2 days PAIN SCALE: Non-responsive LOCATION: cranial TECHNIQUE: Multiple contiguous axial images were obtained of the head. Using automated exposure control and adj ustment of the mA and/or kV according to patient size, radiation dose was kept as low as reasonably a chievable to obtain optimal diagnostic quality images. DICOM format image data is available electro nically for review and comparison. FINDINGS: CEREBRUM: Subdural hematoma of the middle cranial fossa, along the tentorium, and in the posterior parietal rig ht convexity stable in appearance. No evidence of midline shift. Intraventricular blood stable. Th ere is good mendieta-white matter differentiation. POSTERIOR FOSSA: The cerebellum and brainstem are intact. The 4th ventricle is midline. The cerebellopontine angle i s unremarkable. EXTRACRANIAL: The visualized portion of the orbits is intact. SKULL: Stable small scalp hematomas right frontal and right parietal region. The calvaria is intact. No ev idence of skull fracture. CONCLUSION: Stable size to the multifocal right subdural hematomas and intraventricular blood. Amador Feldman MD on September 11, 2017 at 6:58 Board Certified Radiologist. This report was verified electronically.
[2017-09-11 07:20] LABS: SCAN/DIFF AUTO DIFF CONFIRMED
[2017-09-11 07:32] LABS: BLOOD GAS BASE EXCESS -0.8 mmol/L (-2-2); BLOOD GAS CARBOXYHEMOGLOBIN 1.8 % (0-4); BLOOD GAS HCO3 23 mmol/L (22-26); BLOOD GAS METHEMOGLOBIN 0.8 % (0-2); BLOOD GAS O2 HGB SATURATION 92 % (90-100); BLOOD GAS OXYGEN CONTENT 12.9 Vol % (12.0-20.0); BLOOD GAS PCO2 33 mmHg (38-42); BLOOD GAS PO2 68 mmHg (61-120); BLOOD GAS TOTAL HGB 9.9 G/DL (12.0-16.0); TEMP CORR TO 98.6
[2017-09-11 07:33] LABS: CRITICAL VALUE NO; DRAW SITE LT RADIAL; FIO2 21 %; NUMBER OF ARTERIAL PUNCTURES 1; OXYGEN DEVICE ROOM AIR; STAT NO; ULNAR PULSE PRESENT
[2017-09-11] MEDS: CHLORHEXIDINE 0.12% (ORAL KIT) 15 ML CUP MT SCH (08:00)
[2017-09-11] MEDS: DOCUSATE SODIUM 50 MG/SENNA 8.6 MG TAB PO SCH ×2 (09:14→20:32)
[2017-09-11] MEDS: levETIRAcetam INJ 500 MG in SODIUM CHLORIDE 0.9% INJ 100 ML IV SCH ×2 (09:14→20:34)
[2017-09-11] MEDS: FAMOTIDINE 20 MG/2 ML VIAL IV PUSH SCH (09:15)
[2017-09-11] MEDS: METOPROLOL TARTRATE 50 MG TAB PO SCH (09:30)
[2017-09-11] MEDS ORDERED: oxyCODONE/ACETAMINOPHEN 5 MG/325 MG TAB PO PRN (09:30)
--- NOTE | 2017-09-11 10:06 | RADRPT ---
EXAM DATE/TIME: 09/10/2017 14:53 [facility] COMPARISON: No previous studies available for comparison. INDICATIONS : Syncope. MEDICAL HISTORY : Hypertension. Sleep apnea. Arthritis. Right breast cancer. SURGICAL HISTORY : Cholecystectomy. Heart valve replacement. ENCOUNTER: Initial ACUITY: 2 days PAIN SCORE: 9/10 LOCATION: Bilateral neck PEAK SYSTOLIC VELOCITIES (cm/sec): ICA/CCA RATIO: Right: 3.5 Left: 2.3 ICA: Right: 169 Left: 175 CCA: Right: 48 Left: 76 ECA: Right: 39 Left: 117 VERTEBRAL: Right: 114 antegrade Left: 73 antegrade Elevated flow velocities and ICA/CCA ratios have been found to correlate with increased degrees of vessel stenosis, calculated as percentage of diameter relative to a normal segment of distal ICA/CCA FINDINGS: Significant calcified plaque is identified in both carotid systems involving both the common carotid arteries and the carotid bifurcations. RIGHT CAROTID: Significant elevation of velocities in the proximal ICA. There is increased ICA/CCA ratio indicating the presence of a severe stenosis greater than 70%. LEFT CAROTID: Elevated systolic loss is identified in the proximal ICA. There is mild increase in the ICA/CCA ratio indicating a moderate to severe stenosis in the 50-69% range. VERTEBRAL ARTERIES: Antegrade flow is seen in both vertebral arteries. MISCELLANEOUS: None. CONCLUSION: 1. Significant calcified plaque in both carotid systems. 2. High-grade stenosis in the proximal right ICA greater than 70%. 3. But severe stenosis in the proximal left ICA in the 50-69% range. 4. Antegrade flow both vertebral arteries. Aditya Whitehead MD on September 11, 2017 at 10:00 Board Certified Radiologist. This report was verified electronically.
--- NOTE | 2017-09-11 10:08 | PD.CARD.PN ---
Subjective Subjective Remarks no overnight events Objective Medications Current Medications Medications (Trade) Dose Ordered Sig/Tonja Route Start Time Stop Time Status Last Admin (Pepcid Inj) 20 mg Q12HR IV PUSH 09/09/17 02:00 09/11/17 09:15 Miscellaneous Information 1 Q361D XX 09/09/17 02:00 09/09/17 02:00 (Chlorhexidine 2% Cloth) 3 pack Taper DAILY@04 TOP 09/09/17 04:00 09/05/18 03:59 09/10/17 00:42 (Chlorhexidine 2% Cloth) 3 pack UNSCH PRN TOP 09/09/17 02:00 (Yamilet-Colace) 1 tab BID PO 09/09/17 09:00 09/11/17 09:14 (Milk Of Magnesia Liq) 30 ml Q12H PRN PO 09/09/17 02:00 (Senokot) 17.2 mg Q12H PRN PO 09/09/17 02:00 (Dulcolax Supp) 10 mg DAILY PRN RECTAL 09/09/17 02:00 (Lactulose Liq) 30 ml DAILY PRN PO 09/09/17 02:00 Levetriacetam 500 mg/Sodium Chloride 105 ml @ 420 mls/hr Q12HR IV 09/09/17 02:30 09/11/17 09:14 Potassium Chloride 100 ml @ 50 mls/hr Q2H PRN IV 09/09/17 13:45 Potassium Chloride 100 ml @ 50 mls/hr Q2H PRN IV 09/09/17 13:45 09/10/17 02:40 (K-Lyte Cl Eff) 50 meq UNSCH PRN PO 09/09/17 13:45 Potassium Chloride 100 ml @ 25 mls/hr UNSCH PRN IV 09/09/17 13:45 Potassium Chloride 100 ml @ 50 mls/hr Q2H PRN IV 09/09/17 13:45 Magnesium Sulfate 4 gm/Sodium Chloride 100 ml @ 50 mls/hr UNSCH PRN IV 09/09/17 13:45 (Mag-Ox) 800 mg UNSCH PRN PO 09/09/17 13:45 Magnesium Sulfate 2 gm/Sodium Chloride 100 ml @ 50 mls/hr UNSCH PRN IV 09/09/17 13:45 (K-Phos) 2,000 mg Q4H PRN PO 09/09/17 13:45 Sodium Phosphate 30 mmol/Sodium Chloride 250 ml @ 42 mls/hr UNSCH PRN IV 09/09/17 13:45 (K-Phos) 2,000 mg UNSCH PRN PO/TUBE 09/09/17 13:45 Potassium Phosphate 30 mmol/ Sodium Chloride 260 ml @ 42 mls/hr UNSCH PRN IV 09/09/17 13:45 (Lopressor Inj) 5 mg Q6H IV PUSH 09/10/17 11:00 09/11/17 05:00 (Peridex 0.12% Liq) 15 ml BID@08,20 MT 09/10/17 20:00 09/10/17 19:46 (Apresoline Inj) 20 mg Q4H PRN IV PUSH 09/10/17 13:45 09/10/17 15:00 (Zofran Inj) 4 mg Q6H PRN IV PUSH 09/10/17 15:45 09/11/17 02:21 (Morphine Inj) 3 mg Q3H PRN IV PUSH 09/11/17 09:45 (Percocet 5-325 Mg) 1 tab Q4H PRN PO 09/11/17 09:30 (Percocet 10-325 Mg) 1 tab Q4H PRN PO 09/11/17 09:30 (Prinivil) 10 mg DAILY PO 09/11/17 09:30 (Lopressor) 50 mg DAILY PO 09/11/17 09:30 (Aldactone) 25 mg DAILY PO 09/11/17 09:30 (Effexor Xr) 150 mg DAILY PO 09/11/17 09:30 (Desyrel) 50 mg HS PO 09/11/17 21:00 Vital Signs / I&O Vital Signs Date Time Temp Pulse Resp B/P (MAP) Pulse Ox O2 Delivery O2 Flow Rate FiO2 09/11/17 08:42 96 21 09/11/17 06:00 70 09/11/17 04:00 98.6 76 22 133/73 (93) 100 09/11/17 04:00 76 09/11/17 02:00 77 09/11/17 00:00 93 09/11/17 00:00 98.7 93 29 137/52 (80) 91 09/10/17 22:00 79 09/10/17 20:00 86 09/10/17 20:00 98.8 86 23 143/64 (90) 99 09/10/17 19:00 97 Nasal Cannula 2.00 09/10/17 18:00 96 09/10/17 16:00 97.9 87 17 152/67 (95) 98 09/10/17 16:00 87 09/10/17 14:30 100 Nasal Cannula 3 09/10/17 14:30 100 Nasal Cannula 3.00 09/10/17 14:25 100 40 09/10/17 14:00 92 09/10/17 13:36 40 09/10/17 13:30 100 40 09/10/17 12:00 40 09/10/17 12:00 72 09/10/17 12:00 100.2 72 15 159/67 (97) 100 09/10/17 11:50 100 40 I/O 09/10/17 09/10/17 09/10/17 09/11/17 09/11/17 09/11/17 07:00 15:00 23:00 07:00 15:00 23:00 Intake Total 490 ml 350 ml 1950 ml 500 ml Output Total 300 ml 1300 ml 350 ml Balance 190 ml 350 ml 650 ml 150 ml Intake Oral 0 ml 500 ml IV Total 350 ml 1950 ml Tube Feeding 240 ml Other 250 ml Output Urine Total 300 ml 1300 ml 350 ml Stool Total 0 ml # Bowel Movements 0 0 Physical Exam GENERAL: Well-nourished, well-developed patient. SKIN: Warm and dry. HEAD: Normocephalic. EYES: No scleral icterus. No injection or drainage. NECK: Supple, trachea midline. No JVD or lymphadenopathy. CARDIOVASCULAR: Regular rate and rhythm without murmurs, gallops, or rubs. RESPIRATORY: Breath sounds equal bilaterally. No accessory muscle use. GASTROINTESTINAL: Abdomen soft, non-tender, nondistended. EXTREMITIES: No cyanosis, or edema. Laboratory Laboratory Tests Test 09/10/17 14:47 09/10/17 19:50 09/10/17 22:30 09/11/17 05:20 Sodium Level 142 MEQ/L 140 MEQ/L 141 MEQ/L 140 MEQ/L Serum Osmolality 288 MOSM/KG 290 MOSM/KG 286 MOSM/KG White Blood Count 8.7 TH/MM3 Red Blood Count 2.98 MIL/MM3 Hemoglobin 9.8 GM/DL Hematocrit 29.4 % Mean Corpuscular Volume 98.6 FL Mean Corpuscular Hemoglobin 32.8 PG Mean Corpuscular Hemoglobin Concent 33.3 % Red Cell Distribution Width 16.4 % Platelet Count 76 TH/MM3 Mean Platelet Volume 10.8 FL Neutrophils (%) (Auto) 83.8 % Lymphocytes (%) (Auto) 7.2 % Monocytes (%) (Auto) 8.6 % Eosinophils (%) (Auto) 0.1 % Basophils (%) (Auto) 0.3 % Neutrophils # (Auto) 7.3 TH/MM3 Lymphocytes # (Auto) 0.6 TH/MM3 Monocytes # (Auto) 0.7 TH/MM3 Eosinophils # (Auto) 0.0 TH/MM3 Basophils # (Auto) 0.0 TH/MM3 CBC Comment AUTO DIFF Differential Comment AUTO DIFF CONFIRMED Blood Urea Nitrogen 5 MG/DL Creatinine 0.50 MG/DL Random Glucose 133 MG/DL Total Protein 5.5 GM/DL Calcium Level 7.3 MG/DL Potassium Level 3.0 MEQ/L Chloride Level 107 MEQ/L Carbon Dioxide Level 23.5 MEQ/L Anion Gap 10 MEQ/L Estimat Glomerular Filtration Rate 124 ML/MIN Protein Corrected Calcium 8.2 MG/DL Test 09/11/17 07:05 Blood Gas Puncture Site LT RADIAL Blood Gas Patient Temperature 98.6 Blood Gas HCO3 23 mmol/L Blood Gas Base Excess -0.8 mmol/L Blood Gas Oxygen Saturation 92 % Arterial Blood pH 7.46 Arterial Blood Partial Pressure CO2 33 mmHg Arterial Blood Partial Pressure O2 68 mmHg Arterial Blood Oxygen Content 12.9 Vol % Arterial Blood Carboxyhemoglobin 1.8 % Arterial Blood Methemoglobin 0.8 % Blood Gas Hemoglobin 9.9 G/DL Oxygen Delivery Device ROOM AIR Blood Gas Inspired Oxygen 21 % Imaging Last [address] 09/11/17 0800 Signed Impressions: Service Date/Time: August 06:13 - CONCLUSION: Stable size to the multifocal right subdural hematomas and intraventricular blood. Amador Feldman MD Chest X-Ray 09/11/17 0600 Signed Impressions: Service Date/Time: August 02:42 - CONCLUSION: Improving aeration of the lower lungs with some mild residual interstitial prominence in the left mid and lower lung. Amador Feldman MD Assessment and Plan Problem List: (1) Fall ICD Codes: W19.XXXA - Unspecified fall, initial encounter Plan: 67 y/o F s/p TAVR presenting after 2 falls. Unclear if falls where mechanical test technician in nature. However given recent TAVR Arnel-Tachyarrhythmias is in the differential, thus I strongly recommend to do at least an EPS study to better assess conductions abnormalities. Case has been discuss with Dr. Downs who will see the patient today and will give final decision. Recommendations: -EP consult Dr. Downs for EP study -Cont medical management Case discuss with Dr. Downs and Dr. Mcclelland (2) Traumatic brain injury ICD Codes: S06.9X9A - Unspecified intracranial injury with loss of consciousness of unspecified duration, initial encounter Status: Acute Problem Qualifiers (1) Fall: Qualified Codes: W19.XXXA - Unspecified fall, initial encounter (2) Traumatic brain injury: Marvin Barraza MD Sep 11, 2017 10:08
--- NOTE | 2017-09-11 10:55 | PD.HHIRBSE ---
Patient History Record/History Review Reason for Referral: The patient is a 67 year old unknown handed female status post traumatic brain injury secondary to a fall on 09/09/2017. The patient initially was admitted to [facility] and left AMA and then fell again, subsequently was admitted . Head CT showed SDH with shift. She is referred for baseline neurobehavioral status examination per trauma protocol to assess cognitive, behavioral and emotional aspects of the injury and to provide treatment recommendations. Neuropsych Precautions: To be determined. Past Surgical/Medical History Past Surgery: Yes Major surgery in last 100 days: Unknown Hx Anesthesia Reactions: Yes Hx Orthopedic Surgery: No Hx Cardiac Surgery: Yes (heart valve replacement 08/13/2017) Hx Chest Surgery: No Hx Abdominal Surgery: Yes (gallbladder beginning of 07/2017) Hx Genitourinary Surgery: No Hx Gynecologic Surgery: Yes (complete hysterectomy 1974) Hx Endocrine Surgery: No Hx Eye Surgery: Yes (lasix 2010) Hx Ear Surgery: No Hx Oral Surgery: Yes (patient with full upper and lower dentures) History of Transplant: No Hx of Neuro Prob: Yes Hx Seizures: No Cephalgia (Headaches): No Hx Migraines: No Hx Head Injury: Yes (09/08/2017) Hx Falls: Yes (09/05/2017, 09/06/2017) Hx Dizziness: No Hx Numbness: Yes (intermittently in hands) Hx of Musculoskeletal Pro: Yes Hx Arthritis: Yes (RA) Hx of Cardiovascular Prob: Yes Hypertension (High Blood Press: Yes Hx of Respiratory Problem: Yes Hx Sleep Apnea: Yes (lasted approximately 3 years; ended in 2014) Hx of GI Problems: Yes Hx Gastroesophageal Reflux: Yes Hx Gallbladder Disease: Yes Hx of Problems: No ?: Not Hx of Immuno Disor: No Hx of Endocrine Problems: No Hx of Eye Probl: Yes (previous lasix surgery) Hx of Hearing or Ear Problems: No Hx Dental Problems: Yes (full upper and lower dentures) Hx Psychiatric Problems: No Hx Blood Dyscrasias: No Hx of MDRO: No Hx of MRSA: No Hx of VRE: No Hx of CDIFF: No Hx of Tuberculosis: No Hx Chicken Pox: Yes If No, Have You Been Exposed W: No Hx Measles: No Hx of Body/Medical Devices: Yes Central Line/Ports (Type): Yes (placed at [facility] 2016) Blood Transfusion History Will receive Blood /Blood prod: Yes Hx Blood Transfusions: No Medication Active Medications Chlorhexidine Gluconate (Peridex 0.12% Liq) 15 ml BID@08,20 MT Last administered on 09/10/17 19:46; Admin Dose 15 ML; Start 09/10/17 at 20:00 Hydralazine HCl (Apresoline Inj) 20 mg Q4H PRN IV PUSH Last administered on 15:00; Admin Dose 20 MG; Start 09/10/17 at 13:45 Lisinopril (Prinivil) 10 mg DAILY PO; Start 09/11/17 at 09:30 Metoprolol Tartrate (Lopressor Inj) 5 mg Q6H IV PUSH Last administered on 05:00; Admin Dose 5 MG; Start 09/10/17 at 11:00 Metoprolol Tartrate (Lopressor) 50 mg DAILY PO; Start 09/11/17 at 09:30 Morphine Sulfate (Morphine Inj) 2 mg Q3H PRN IV PUSH Last administered on 09/11 07:00; Admin Dose 2 MG; Start 09/10/17 at 15:45; Stop 09/11/17 at 09:28 ; Status DC Morphine Sulfate (Morphine Inj) 2 mg STK-MED ONCE .ROUTE Last administered on 15:00; Admin Dose 2 MG; Start 09/10/17 at 14:56; Stop 09/10/17 at 14: 57; Status DC Morphine Sulfate (Morphine Inj) 3 mg Q3H PRN IV PUSH; Start 09/11/17 at 09:45 Ondansetron HCl (Zofran Inj) 4 mg Q6H PRN IV PUSH Last administered on 02:21; Admin Dose 4 MG; Start 09/10/17 at 15:45 Ondansetron HCl (Zofran Inj) 4 mg STK-MED ONCE .ROUTE Last administered on 09/10 15:00; Admin Dose 4 MG; Start 09/10/17 at 14:55; Stop 09/10/17 at 14:56 ; Status DC Oxycodone/ Acetaminophen (Percocet 5-325 Mg) 1 tab Q4H PRN PO; Start at 09:30 Oxycodone/ Acetaminophen (Percocet 10-325 Mg) 1 tab Q4H PRN PO; Start at 09:30 Spironolactone (Aldactone) 25 mg DAILY PO; Start 09/11/17 at 09:30 Trazodone HCl (Desyrel) 50 mg HS PO; Start 09/11/17 at 21:00 Venlafaxine HCl (Effexor Xr) 150 mg DAILY PO; Start 09/11/17 at 09:30 Mental Status Assessment Orientation: oriented to Self, oriented to Place, oriented to Time Mental Status: Impaired: Thought processing, Attention Observation The patient is alert and oriented to person, place, time and circumstances surrounding the reason for hospitalization although assessment is attenuated by her tearfulness and pain preoccupation. In terms of attention skills, the patient was able to remain on task and remember basic but not complex instructions. In terms of memory functioning, the patient exhibited difficulties with carryover of information, owing again to her pain preoccupation. The patient initiated spontaneous conversation. Speech was characterized by adequate prosody, grammar, articulation, volume and rate. Basic naming skills appeared intact. Language repetition skills were not assessed. The patients comprehensions for basic one- and two-stage commands appeared intact. Basic verbal abstraction and problem-solving skills were not assessed. The patient appears to posses questionable insight and awareness into their situation and within the limits of this brief evaluation, questionable judgment. Adjustment/Coping Assessment Adjustment/Coping: Moderate: Awareness, Insight, Severe: Pain Observation The patients thought content was free from suicidal, homicidal or paranoid ideation, and the patients thought processes were pain preoccupied. The patients mood was tearful, and the affect was labile. LTG Status: Deferred STG Status: Deferred Team Members: Neuropsychologist Behavior Assessment Agitation: Moderate Treatment Engagement: Minimal Observation Behaviorally, the patient demonstrated signs of agitation as it related to her physical condition, but no impulsivity or disinhibition. There was no remarkable evidence of a formal thought disorder or psychosis. LTG - Status: Deferred STG Status: Deferred Team Members: Neuropsychologist Diagnosis/Discharge Plan Impression This is a 67 year old woman s/p complicated mild traumatic brain injury and pain preoccupation and baseline psychiatric issues. Diagnosis: (1) Mild major neurocognitive disorder due to traumatic brain injury with behavioral disturbance (2) Adjustment disorder with anxiety [facility] Level: IV:Confused/Agitated-maximal assist Maximizing acute care outcome It is recommended that the patient be monitored for emergent behavioral impulsivity as the medical condition evolves. This patients neuropathological challenges may limit her rehabilitation potential going forward, and these challenges will require specialized therapeutic skills to maximize outcome. Additionally, the patients family is experiencing ongoing issues of adjustment given the traumatic nature of the injury, and they [will need / may benefit] from ongoing psychological assistance. At this point in the recovery process, the patient has questionable cognitive capacity as the patient is unable to fully understand a situation and its likely consequences, nor is she able to consistently manipulate information rationally. Cognitive capacity will be assessed throughout the recovery process. Discharge Planning Anticipated Problems Ongoing areas of concern will include behavioral impulsivity, lack of insight and judgment, which is expected to improve with time and treatment. Presently , the patient is awake, alert but she is restless concerning her pain level. Treatment Plan This clinician will continue to follow with you throughout the course of this patients acute care treatment, and I will be available to meet with the patient s family/support system to facilitate their understanding and the ongoing care of their family member. The goals of neuropsychological intervention shall be both educational and supportive to the family/support system as is deemed clinically appropriate. Discharge Needs To be determined. Thank you Thank you for the opportunity to assist in this patients care. Juan Arechiga, Ph.D., ABPP Board Certified in Clinical Neuropsychology [place] [employer] [place] Licensed Psychologist #[id number] Juan Arechiga PhD Sep 11, 2017 10:55
[2017-09-11] MEDS: SPIRONOLACTONE 25 MG TAB PO SCH (11:33)
[2017-09-11] MEDS: VENLAFAXINE HCL XR 75 MG CAP PO SCH (11:33)
[2017-09-11] MEDS: oxyCODONE/ACETAMINOPHEN 10 MG/325 MG TAB PO PRN ×3 (11:33→20:32)
[2017-09-11] MEDS: LISINOPRIL 10 MG TAB PO SCH (11:34)
[2017-09-11] MEDS: POTASSIUM CHLOR 40 MEQ PREMIX 100 ML IV PRN ×2 (14:06→18:01)
--- NOTE | 2017-09-11 14:59 | HHI.NSPN ---
(Jessy Contreras) Note Status Status: Progress Note (Jessy Contreras) Interval History Interval History 67 year old female who was transferred from [facility] for subdural hematoma. She had recently suffered multiple falls and is on aspirin and Plavix. She was vomiting and agitated. She was intubated at [facility]. A neurosurgical evaluation was requested. 09/10: becomes agitated when sedation is decreased, currently intubated and sedated. Opening eyes and spontaneously moves x 4 extremities. 09/11: extubated yesterday, mildly restless wanting out of bed. moves all four extremities. f/u CT Head this morning completed. (Jessy Contreras) Labs, Micro, & Vital Signs Results Date Time Temp Pulse Resp B/P (MAP) Pulse Ox O2 Delivery O2 Flow Rate FiO2 09/11/17 12:00 97.4 73 25 153/92 (112) 95 09/11/17 12:00 62 09/11/17 10:00 80 09/11/17 08:42 96 21 09/11/17 08:00 98.4 75 20 149/66 (93) 95 09/11/17 08:00 75 09/11/17 07:00 95 Room Air 09/11/17 06:00 70 09/11/17 04:00 98.6 76 22 133/73 (93) 100 09/11/17 04:00 76 09/11/17 02:00 77 09/11/17 00:00 93 09/11/17 00:00 98.7 93 29 137/52 (80) 91 09/10/17 22:00 79 09/10/17 20:00 86 09/10/17 20:00 98.8 86 23 143/64 (90) 99 09/10/17 19:00 97 Nasal Cannula 2.00 09/10/17 18:00 96 09/10/17 16:00 97.9 87 17 152/67 (95) 98 09/10/17 16:00 87 09/12/17 07:00 Intake Total 565 ml Balance 565 ml Constitutional Vital Signs Date Time Temp Pulse Resp B/P (MAP) Pulse Ox O2 Delivery O2 Flow Rate FiO2 09/11/17 12:00 97.4 73 25 153/92 (112) 95 09/11/17 12:00 62 09/11/17 10:00 80 09/11/17 08:42 96 21 09/11/17 08:00 98.4 75 20 149/66 (93) 95 09/11/17 08:00 75 09/11/17 07:00 95 Room Air 09/11/17 06:00 70 09/11/17 04:00 98.6 76 22 133/73 (93) 100 09/11/17 04:00 76 09/11/17 02:00 77 09/11/17 00:00 93 09/11/17 00:00 98.7 93 29 137/52 (80) 91 09/10/17 22:00 79 09/10/17 20:00 86 09/10/17 20:00 98.8 86 23 143/64 (90) 99 09/10/17 19:00 97 Nasal Cannula 2.00 09/10/17 18:00 96 09/10/17 16:00 97.9 87 17 152/67 (95) 98 09/10/17 16:00 87 09/12/17 07:00 Intake Total 565 ml Balance 565 ml (Jessy Contreras) Review of Systems ROS Limitations: Altered Mental Status (Jessy Contreras) Physical Exam Ms. Mercado is mildly restless, mumbles. Some eye opening but not consistently following commands. Cranial Nerves: Pupils equal, round, reactive to light. Face musculature appeared symmetrical at rest. Cervical Spine: soft, supple, without nuchal rigidity. Motor: muscle tone and bulk are normal. intermittent purposeful movements x 4 extremities Reflexes: Deep tendon reflexes are 1+ in the upper and lower extremities. bilateral plantar flexion response. Sensory: On examination there is response to painful stimuli, localizing with both upper and lower extremities. Cerebellar: cannot assessed due to the patient's neurological condition (Jessy Contreras) Ms. Mercado is mildly restless, mumbles. Some eye opening but not consistently following commands. Cranial Nerves: Pupils equal, round, reactive to light. Face musculature appeared symmetrical at rest. Cervical Spine: soft, supple, without nuchal rigidity. Motor: muscle tone and bulk are normal. intermittent purposeful movements x 4 extremities Reflexes: Deep tendon reflexes are 1+ in the upper and lower extremities. bilateral plantar flexion response. Sensory: On examination there is response to painful stimuli, localizing with both upper and lower extremities. Cerebellar: cannot assessed due to the patient's neurological condition (Dax Garcia MD) Medications Current Medications Current Medications Medications (Trade) Dose Ordered Sig/Tonja Route PRN Reason Start Time Stop Time Status Last Admin Dose Admin Famotidine (Pepcid Inj) 20 mg Q12HR IV PUSH 09/09/17 02:00 09/11/17 09:15 Miscellaneous Information 1 Q361D XX 09/09/17 02:00 09/09/17 02:00 Chlorhexidine Gluconate (Chlorhexidine 2% Cloth) 3 pack Taper DAILY@04 TOP 09/09/17 04:00 09/05/18 03:59 09/10/17 00:42 Chlorhexidine Gluconate (Chlorhexidine 2% Cloth) 3 pack UNSCH PRN TOP HYGIENIC CARE 09/09/17 02:00 Senna/Docusate Sodium (Yamilet-Colace) 1 tab BID PO 09/09/17 09:00 09/11/17 09:14 Magnesium Hydroxide (Milk Of Magnesia Liq) 30 ml Q12H PRN PO Mild constipation 09/09/17 02:00 Sennosides (Senokot) 17.2 mg Q12H PRN PO Moderate constipation 09/09/17 02:00 Bisacodyl (Dulcolax Supp) 10 mg DAILY PRN RECTAL SEVERE CONSITIPATION 09/09/17 02:00 Lactulose (Lactulose Liq) 30 ml DAILY PRN PO SEVERE CONSITIPATION 09/09/17 02:00 Levetriacetam 500 mg/Sodium Chloride 105 ml @ 420 mls/hr Q12HR IV 09/09/17 02:30 09/11/17 09:14 Potassium Chloride 100 ml @ 50 mls/hr Q2H PRN IV For Potassium 2.8 - 3.2 mEq/L 09/09/17 13:45 09/11/17 14:06 Potassium Chloride 100 ml @ 50 mls/hr Q2H PRN IV For Potassium 2.8 - 3.2 mEq/L 09/09/17 13:45 09/10/17 02:40 Potassium Bicarb/ Potassium Chloride (K-Lyte Cl Eff) 50 meq UNSCH PRN PO For Potassium 3.3 - 3.5 mEq/L 09/09/17 13:45 Potassium Chloride 100 ml @ 25 mls/hr UNSCH PRN IV For Potassium 3.3 - 3.5 mEq/L 09/09/17 13:45 Potassium Chloride 100 ml @ 50 mls/hr Q2H PRN IV For Potassium 3.3 - 3.5 mEq/L 09/09/17 13:45 Magnesium Sulfate 4 gm/Sodium Chloride 100 ml @ 50 mls/hr UNSCH PRN IV For Magnesium 0.9 - 1.1 mg/dL 09/09/17 13:45 Magnesium Oxide (Mag-Ox) 800 mg UNSCH PRN PO For Magnesium 1.2 - 1.6 mg/dL 09/09/17 13:45 Magnesium Sulfate 2 gm/Sodium Chloride 100 ml @ 50 mls/hr UNSCH PRN IV For Magnesium 1.2 - 1.6 mg/dL 09/09/17 13:45 Potassium Phosphate (K-Phos) 2,000 mg Q4H PRN PO For Phosphorus < 2.5 mg/dL 09/09/17 13:45 Sodium Phosphate 30 mmol/Sodium Chloride 250 ml @ 42 mls/hr UNSCH PRN IV For Phosphorus < 2.5 mg/dL 09/09/17 13:45 Potassium Phosphate (K-Phos) 2,000 mg UNSCH PRN PO/TUBE SEE LABEL COMMENTS 09/09/17 13:45 Potassium Phosphate 30 mmol/ Sodium Chloride 260 ml @ 42 mls/hr UNSCH PRN IV SEE LABEL COMMENTS 09/09/17 13:45 Metoprolol Tartrate (Lopressor Inj) 5 mg Q6H IV PUSH 09/10/17 11:00 09/11/17 05:00 Chlorhexidine Gluconate (Peridex 0.12% Liq) 15 ml BID@08,20 MT 09/10/17 20:00 09/10/17 19:46 Hydralazine HCl (Apresoline Inj) 20 mg Q4H PRN IV PUSH SYS BP GREATER THAN 160 MMHG 09/10/17 13:45 09/10/17 15:00 Ondansetron HCl (Zofran Inj) 4 mg Q6H PRN IV PUSH NAUSEA OR VOMITING 09/10/17 15:45 09/11/17 02:21 Morphine Sulfate (Morphine Inj) 3 mg Q3H PRN IV PUSH BREAKTHROUGH PAIN 09/11/17 09:45 09/11/17 13:17 Oxycodone/ Acetaminophen (Percocet 5-325 Mg) 1 tab Q4H PRN PO pain 3-5 09/11/17 09:30 Oxycodone/ Acetaminophen (Percocet 10-325 Mg) 1 tab Q4H PRN PO pain 6-10 09/11/17 09:30 09/11/17 11:33 Lisinopril (Prinivil) 10 mg DAILY PO 09/11/17 09:30 09/11/17 11:34 Metoprolol Tartrate (Lopressor) 50 mg DAILY PO 09/11/17 09:30 Spironolactone (Aldactone) 25 mg DAILY PO 09/11/17 09:30 09/11/17 11:33 Venlafaxine HCl (Effexor Xr) 150 mg DAILY PO 09/11/17 09:30 09/11/17 11:33 Trazodone HCl (Desyrel) 50 mg HS PO 09/11/17 21:00 (Jessy Contreras) Current Medications Current Medications Fentanyl Citrate (fentaNYL INJ) 100 mcg STK-MED ONCE .ROUTE ; Start 09/09/17 at 01:25; Stop 09/09/17 at 01:26; Status DC Iohexol (Omnipaque 350 Inj) 100 ml STK-MED ONCE IVCONTRAST Last administered on 09/09/17 01:48; Start 09/09/17 at 01:48; Stop 09/09/17 at 01:49; Status DC Sodium Chloride 1,000 ml @ 100 mls/hr Q10H IV Last administered on 09/09/17 12:59; Start 09/09/17 at 01:55; Stop 09/09/17 at 13:25; Status DC Famotidine (Pepcid Inj) 20 mg Q12HR IV PUSH Last administered on 09/11/17 09: 15; Start 09/09/17 at 02:00; Stop 09/11/17 at 14:59; Status DC Miscellaneous Information 1 Q361D XX Last administered on 12/12/17at 02:00; Start 09/09/17 at 02:00 Chlorhexidine Gluconate (Chlorhexidine 2% Cloth) 3 pack Taper DAILY@04 TOP Last administered on 09/10/17 00:42; Start 09/09/17 at 04:00; Stop 09/05/18 at 03:59 Chlorhexidine Gluconate (Chlorhexidine 2% Cloth) 3 pack UNSCH PRN TOP HYGIENIC CARE; Start 09/09/17 at 02:00 Senna/Docusate Sodium (Yamilet-Colace) 1 tab BID PO Last administered on 09:53; Start 09/09/17 at 09:00 Magnesium Hydroxide (Milk Of Magnesia Liq) 30 ml Q12H PRN PO Mild constipation ; Start 09/09/17 at 02:00 Sennosides (Senokot) 17.2 mg Q12H PRN PO Moderate constipation; Start at 02:00 Bisacodyl (Dulcolax Supp) 10 mg DAILY PRN RECTAL SEVERE CONSITIPATION; Start 09/09/17 at 02:00 Lactulose (Lactulose Liq) 30 ml DAILY PRN PO SEVERE CONSITIPATION; Start 09/09 at 02:00 Propofol 100 ml @ 2.019 mls/ hr TITRATE PRN IV SEDATION Last administered on 09/10/17 06:01; Start 09/09/17 at 02:00; Stop 09/10/17 at 15:31; Status DC Fentanyl Citrate 250 ml @ 5 mls/hr TITRATE PRN IV SEDATION; Start 09/09/17 at 02:00; Stop 09/09/17 at 02:04; Status DC Fentanyl Citrate 250 ml @ 5 mls/hr TITRATE PRN IV SEDATION Last administered on 09/10/17 02:38; Start 09/09/17 at 02:15; Stop 09/10/17 at 15:31; Status DC Diltiazem HCl 125 mg/Sodium Chloride 125 ml @ 5 mls/hr TITRATE PRN IV Tachycardia; Start 09/09/17 at 02:30; Status Cancel Levetriacetam 500 mg/Sodium Chloride 105 ml @ 420 mls/hr Q12HR IV Last administered on 09/12/17 09:52; Start 09/09/17 at 02:30 Nicardipine HCl 25 mg/Sodium Chloride 250 ml @ 50 mls/hr TITRATE PRN IV Blood Pressure Management; Start 09/09/17 at 03:45; Stop 09/09/17 at 09:27; Status DC Vancomycin HCl (Vancomycin Inj) 1,000 mg STK-MED ONCE .ROUTE ; Start 09/09/17 at 08:13; Stop 09/09/17 at 08:14; Status DC Thrombin (Thrombin Top Soln) 10,000 units STK-MED ONCE .ROUTE ; Start 09/09/17 at 08:13; Stop 09/09/17 at 08:14; Status DC Cefazolin Sodium/ Dextrose 50 ml @ As Directed STK-MED ONCE .ROUTE ; Start 09/14 at 08:13; Stop 09/09/17 at 08:14; Status DC Gelatin (Gelfoam 100 Top) 1 foam STK-MED ONCE .ROUTE ; Start 09/09/17 at 08:13 ; Stop 09/09/17 at 08:14; Status DC Furosemide (Lasix Inj) 40 mg STK-MED ONCE .ROUTE ; Start 09/09/17 at 08:14; Stop 09/09/17 at 08:15; Status DC Levetriacetam (Keppra Inj) 1,000 mg STK-MED ONCE IV ; Start 09/09/17 at 08:14; Stop 09/09/17 at 08:15; Status DC Bacitracin (Baciguent Oint) 15 applic STK-MED ONCE .ROUTE ; Start 09/09/17 at 08:14; Stop 09/09/17 at 08:15; Status DC Gentamicin Sulfate (Gentamicin Inj) 240 mg STK-MED ONCE .ROUTE ; Start at 08:14; Stop 09/09/17 at 08:15; Status DC Mannitol 100 ml @ As Directed STK-MED ONCE .ROUTE ; Start 09/09/17 at 08:14; Stop 09/09/17 at 08:15; Status DC Lidocaine/ Epinephrine (Xylocaine-Epi 1%-1:100,000 Inj) 20 ml STK-MED ONCE .ROUTE ; Start 09/09/17 at 08:15; Stop 09/09/17 at 08:16; Status DC Sodium Chloride 250 ml @ As Directed STK-MED ONCE .ROUTE ; Start 09/09/17 at 08:15; Stop 09/09/17 at 08:16; Status DC Sodium Chloride 188 meq/Sodium Chloride 1,047 ml @ 40 mls/hr Q24H IV Last administered on 09/10/17t 20:50; Start 09/09/17 at 16:00; Stop 09/11/17 at 09 :29; Status DC Potassium Chloride 100 ml @ 50 mls/hr Q2H PRN IV For Potassium 2.8 - 3.2 mEq/ L Last administered on 09/11/17t 18:01; Start 09/09/17 at 13:45; Stop at 12:37; Status DC Potassium Chloride 100 ml @ 50 mls/hr Q2H PRN IV For Potassium 2.8 - 3.2 mEq/ L Last administered on 09/10/17 02:40; Start 09/09/17 at 13:45; Stop at 12:37; Status DC Potassium Bicarb/ Potassium Chloride (K-Lyte Cl Eff) 50 meq UNSCH PRN PO For Potassium 3.3 - 3.5 mEq/L; Start 09/09/17 at 13:45; Stop 09/12/17 at 12:37; Status DC Potassium Chloride 100 ml @ 25 mls/hr UNSCH PRN IV For Potassium 3.3 - 3.5 mEq /L; Start 09/09/17 at 13:45; Stop 09/12/17 at 12:37; Status DC Potassium Chloride 100 ml @ 50 mls/hr Q2H PRN IV For Potassium 3.3 - 3.5 mEq/L ; Start 09/09/17 at 13:45; Stop 09/12/17 at 12:37; Status DC Magnesium Sulfate 4 gm/Sodium Chloride 100 ml @ 50 mls/hr UNSCH PRN IV For Magnesium 0.9 - 1.1 mg/dL; Start 09/09/17 at 13:45; Stop 09/12/17 at 12:37; Status DC Magnesium Oxide (Mag-Ox) 800 mg UNSCH PRN PO For Magnesium 1.2 - 1.6 mg/dL; Start 09/09/17 at 13:45; Stop 09/12/17 at 12:37; Status DC Magnesium Sulfate 2 gm/Sodium Chloride 100 ml @ 50 mls/hr UNSCH PRN IV For Magnesium 1.2 - 1.6 mg/dL; Start 09/09/17 at 13:45; Stop 09/12/17 at 12:37; Status DC Potassium Phosphate (K-Phos) 2,000 mg Q4H PRN PO For Phosphorus < 2.5 mg/dL; Start 09/09/17 at 13:45; Stop 09/12/17 at 12:37; Status DC Sodium Phosphate 30 mmol/Sodium Chloride 250 ml @ 42 mls/hr UNSCH PRN IV For Phosphorus < 2.5 mg/dL; Start 09/09/17 at 13:45; Stop 09/12/17 at 12:37; Status DC Potassium Phosphate (K-Phos) 2,000 mg UNSCH PRN PO/TUBE SEE LABEL COMMENTS; Start 09/09/17 at 13:45; Stop 09/12/17 at 12:37; Status DC Potassium Phosphate 30 mmol/ Sodium Chloride 260 ml @ 42 mls/hr UNSCH PRN IV SEE LABEL COMMENTS; Start 09/09/17 at 13:45; Stop 09/12/17 at 12:37; Status DC Sodium Chloride 188 meq/Sodium Chloride 1,047 ml @ 40 mls/hr Q24H IV ; Start 09/09/17 at 16:30; Stop 09/09/17 at 16:30; Status DC Pneumococcal Polyvalent Vaccine (Pneumovax-23 Inj) 25 mcg ONCE ONCE IM Last administered on 09/10/17 10:59; Start 09/10/17 at 10:00; Stop 09/10/17 at 10 :01; Status DC Sodium Chloride 1,000 ml @ 999 mls/hr Q1H1M IV Last administered on 05:17; Start 09/10/17 at 04:30; Stop 09/10/17 at 06:30; Status DC Metoprolol Tartrate (Lopressor Inj) 5 mg Q6H IV PUSH Last administered on 09/11 05:00; Start 09/10/17 at 11:00; Stop 09/11/17 at 14:59; Status DC Chlorhexidine Gluconate (Peridex 0.12% Liq) 15 ml BID@08,20 MT Last administered on 09/10/17 19:46; Start 09/10/17 at 20:00; Stop 09/11/17 at 14 :59; Status DC Furosemide (Lasix Inj) 20 mg ONCE ONCE IV PUSH Last administered on 10:36; Start 09/10/17 at 09:30; Stop 09/10/17 at 10:02; Status DC Hydralazine HCl (Apresoline Inj) 20 mg Q4H PRN IV PUSH SYS BP GREATER THAN 160 MMHG Last administered on 09/12/17 04:50; Start 09/10/17 at 13:45 Ondansetron HCl (Zofran Inj) 4 mg STK-MED ONCE .ROUTE Last administered on 15:00; Start 09/10/17 at 14:55; Stop 09/10/17 at 14:56; Status DC Morphine Sulfate (Morphine Inj) 2 mg STK-MED ONCE .ROUTE Last administered on 09/10/17 15:00; Start 09/10/17 at 14:56; Stop 09/10/17 at 14:57; Status DC Morphine Sulfate (Morphine Inj) 2 mg Q3H PRN IV PUSH PAIN SCALE 5 TO 10 Last administered on 09/11/17 07:00; Start 09/10/17 at 15:45; Stop 09/11/17 at 09 :28; Status DC Ondansetron HCl (Zofran Inj) 4 mg Q6H PRN IV PUSH NAUSEA OR VOMITING Last administered on 09/12/17 03:24; Start 09/10/17 at 15:45 Morphine Sulfate (Morphine Inj) 3 mg Q3H PRN IV PUSH BREAKTHROUGH PAIN Last administered on 09/12/17 02:36; Start 09/11/17 at 09:45 Oxycodone/ Acetaminophen (Percocet 5-325 Mg) 1 tab Q4H PRN PO pain 3-5; Start 09/11/17 at 09:30 Oxycodone/ Acetaminophen (Percocet 10-325 Mg) 1 tab Q4H PRN PO pain 6-10 Last administered on 09/12/17 04:49; Start 09/11/17 at 09:30 Lisinopril (Prinivil) 10 mg DAILY PO Last administered on 09/12/17 09:53; Start 09/11/17 at 09:30 Metoprolol Tartrate (Lopressor) 50 mg DAILY PO Last administered on 09/12/17 09:52; Start 09/11/17 at 09:30 Spironolactone (Aldactone) 25 mg DAILY PO Last administered on 09/12/17 09:52 ; Start 09/11/17 at 09:30 Venlafaxine HCl (Effexor Xr) 150 mg DAILY PO Last administered on 09/12/17 09 :52; Start 09/11/17 at 09:30 Trazodone HCl (Desyrel) 50 mg HS PO Last administered on 09/11/17 20:33; Start 09/11/17 at 21:00 Morphine Sulfate (Morphine Inj) 4 mg STK-MED ONCE .ROUTE ; Start 09/11/17 at 19 :42; Stop 09/11/17 at 19:43; Status DC Morphine Sulfate (Morphine Inj) 4 mg NOW ONCE IV Last administered on 19:40; Start 09/11/17 at 20:00; Stop 09/11/17 at 20:01; Status DC Iohexol (Omnipaque 350 Inj) 75 ml STK-MED ONCE IVCONTRAST Last administered on 09/11/17 21:40; Start 09/11/17 at 21:40; Stop 09/11/17 at 21:41; Status DC Lorazepam (Ativan) 1 mg NOW ONCE PO Last administered on 09/12/17 05:55; Start 09/12/17 at 05:30; Stop 09/12/17 at 05:31; Status DC Buspirone HCl (Buspar) 5 mg TID PO Last administered on 09/12/17 09:56; Start 09/12/17 at 09:00 Morphine Sulfate (Oramorph Sr) 30 mg DAILY PO Last administered on 09/12/17 09:53; Start 09/12/17 at 09:00 (Dax Garcia MD) Medical Decision Making MDM Remarks 67 y/o female ground level fall, with TBI, subdural hematoma, stable follow up CT Head neurologically stable (Jessy Contreras) MDM Remarks Last [address] 09/11/17 0800 Signed Impressions: Service Date/Time: August 06:13 - CONCLUSION: Stable size to the multifocal right subdural hematomas and intraventricular blood. Amador Feldman MD Chest X-Ray 09/11/17 0600 Signed Impressions: Service Date/Time: August 02:42 - CONCLUSION: Improving aeration of the lower lungs with some mild residual interstitial prominence in the left mid and lower lung. Amador Feldman MD Neck CTA 09/11/17 0000 Signed Impressions: Service Date/Time: August 21:22 - CONCLUSION: 1. Bilateral calcified plaque and approximately 70%% stenoses of the proximal internal carotid arteries bilaterally. 2. High-grade stenosis of right external carotid artery at its origin. Lamonte Bellamy MD Carotid Artery Ultrasound 09/11/17 0000 Signed Impressions: Service Date/Time: Sunday, September 10, 2017 14:53 - CONCLUSION: 1. Significant calcified plaque in both carotid systems. 2. High-grade stenosis in the proximal right ICA greater than 70%%. 3. But severe stenosis in the proximal left ICA in the 50-69%% range. 4. Antegrade flow both vertebral arteries. Aditya Whitehead MD (Dax Garcia MD) Plan Plan Remarks f/u CT Head this morning reviewed by Dr. Garcia cont neuro checks in ISC cont nonsurgical mgt nonchemical dvt prophylaxis in view of ICH protonix for stress ulcer proph critical care mgt Dr. Garcia updated again at bedside (Jessy Contreras) Attending Statement Severe traumatic brain injury. Continue neuro checks. Continue nonoperative treatment Subdural Hematoma. Continue non surgical management. Follow up brain stable Acute respiratory failure. wean Ventilator. Continue aggressive pulmonary toilette, nasotracheal suction, and breathing treatments with nebulizers. Nutrition. tube feedings acetaminophen/cooling blanket as needed for temperature greater than 100.4 Status post valve replacement. Hold anticoagulation Renal: - butler - strict i/o's Renal. monitor closely urine output, BUN and creatinine Butler in place. Monitor intake and output. Monitor electrolytes and replace as indicated per ICU electrolyte replacement protocol. ENDO: Monitor bedside glucose and initiate low-dose insulin sliding scale as indicated for glucose greater than 180 central venous line A-line insertion for hemodynamic monitoring Infectious disease. monitor for signs of infection Protonix for stress ulcer prophylaxis Ulises hose and SCD's for DVT prophylaxis. The exam, history, and the medical decision-making described in the above note were completed with the assistance of the mid-level provider. I reviewed and agree with the findings presented. I attest that I had a [id number] encounter with the patient on the same day, and personally performed and documented my assessment and findings in the medical record. (Dax Garcia MD) Jessy oCntreras Sep 11, 2017 14:59 Dax Garcia MD Sep 12, 2017 12:38
--- NOTE | 2017-09-11 16:12 | HHI.CCPN ---
Subjective Remarks/Hospital Course 67 year old female presents as a transfer from [facility] in [facility] related to a fall in which she sustained an intracranial hemorrhage. The patient according to the record at [facility] is on aspirin and Plavix. The patient was seen earlier yesterday related to a fall and at that time had a CT scan of the brain that was negative. The patient then fell again after going home. According to the record the patient initially fell forward the first time striking her head and has right-sided forehead contusion associated with abrasion, and then the patient fell backwards the second time striking the back of her head. The patient had complained of headache and neck pain. The patient proceeded to have intractable nausea and vomiting and was intubated to protect her airway. At the other facility the patient was reportedly given morphine for pain, Zofran for nausea. With intractable nausea the patient was given Phenergan. The patient was then intubated with RSI and given etomidate and succinylcholine. The patient has an endotracheal tube in place on arrival. She is moving all her extremities in a purposeful way and attempting to pull out the endotracheal tube. SUBJ 09/10: Intubated sedated. On sedation hold follows command with RUE and bilateral lower extremity. Purposefully moves left upper extremity. Patient had a recent TAVR by Dr. Dubon. No evidence of Heart Block 09/11: Extubated yesterday tolerating well sitting up in chair. Oriented to person place and some more time. Restless. describes fall as 'loss of balance' and fall, without syncopal episodes. EP consulted by Dr. Dubon. Carotid ultrasound showed High-grade stenosis in the proximal right ICA greater than 70% , moderate to severe stenosis in the proximal left ICA in the 50-69% range. D/W Dr. hernandez Objective Vital Signs Date Time Temp Pulse Resp B/P (MAP) Pulse Ox O2 Delivery O2 Flow Rate FiO2 09/11/17 13:22 20 09/11/17 12:00 97.4 73 153/92 (112) 95 09/11/17 08:42 21 09/11/17 07:00 Room Air 09/10/17 19:00 2.00 Intake and Output 09/11/17 09/11/17 09/12/17 08:00 16:00 00:00 Intake Total 500 ml 565 ml Output Total 350 ml Balance 150 ml 565 ml Result Diagram: 09/11/17 0520 09/11/17 0520 Other Results Laboratory Tests Test 09/11/17 07:05 Blood Gas Puncture Site LT RADIAL Blood Gas Patient Temperature 98.6 Blood Gas HCO3 23 mmol/L (22-26) Blood Gas Base Excess -0.8 mmol/L (-2-2) Blood Gas Oxygen Saturation 92 % (90-100) Arterial Blood pH 7.46 (7.380-7.420) Arterial Blood Partial Pressure CO2 33 mmHg (38-42) Arterial Blood Partial Pressure O2 68 mmHg (61-120) Arterial Blood Oxygen Content 12.9 Vol % (12.0-20.0) Arterial Blood Carboxyhemoglobin 1.8 % (0-4) Arterial Blood Methemoglobin 0.8 % (0-2) Blood Gas Hemoglobin 9.9 G/DL (12.0-16.0) Oxygen Delivery Device ROOM AIR Blood Gas Inspired Oxygen 21 % Imaging Last 24 hours Impressions Pelvis X-Ray 09/09/17123 Signed Impressions: Service Date/Time: Saturday, September 09, 2017 01:22 - CONCLUSION: No fracture seen. Amorphous calcification superior to the left greater trochanter is of uncertain significance. CT is pending. Amador Feldman MD Maxillofacial CT 09/09/17123 Signed Impressions: Service Date/Time: Saturday, September 09, 2017 01:32 - CONCLUSION: 1. No facial bone fracture seen. 2. Mild ethmoid sinus disease. Amador Feldman MD Head CT 09/09/17123 Signed Impressions: Service Date/Time: Saturday, September 09, 2017 01:32 - CONCLUSION: 1. Evidence of closed head injury with 1 cm right subdural hematoma extending from the high convexity, subarachnoid blood along the right tentorium and interhemispheric fissure, right hemispheric edema with 3 mm midline shift towards the left, and intraventricular blood in the left occipital horn. 2. Right frontoparietal and right occipital scalp hematomas. No skull fracture seen. Amador Feldman MD Chest X-Ray 09/09/17123 Signed Impressions: Service Date/Time: Saturday, September 09, 2017 01:22 - CONCLUSION: The lungs are clear. No evidence of pneumothorax. Amador Feldman MD Chest CT 09/09/17123 Signed Impressions: Service Date/Time: Saturday, September 09, 2017 01:44 - CONCLUSION: 1. No evidence pneumothorax. 2. Bibasilar atelectasis. 3. Focal 12 mm opacity lateral left mid lung may represent pulmonary contusion, focal infiltrate, or mass. Recommend followup scan to assure resolution. Amador Feldman MD Cervical Spine CT 09/09/17123 Signed Impressions: Service Date/Time: Saturday, September 09, 2017 01:32 - CONCLUSION: No evidence of compression deformity or spondylolisthesis. Amador Feldman MD Abdomen/Pelvis CT 09/09/17123 Signed Impressions: Service Date/Time: Saturday, September 09, 2017 01:44 - CONCLUSION: Negative trauma CT abdomen/pelvis with contrast. Amador Feldman MD Objective Remarks General: The patient is sitting up in chair Head and Neck exam: Head is normocephalic, Swelling along the right side of the forehead with ecchymosis noted an overlying abrasion. Eyes: Pupils are equal round and reactive to light. Nose: Midline septum with pink mucous membranes Mouth: Moist mucus membranes. Neck: No tracheal deviation. The trachea appears midline. Mild carotid bruit bilaterally Cardiovascular: Regular rate and rhythm no gallops, or rubs. Grade 2 systolic murmur heard in all areas Lungs: Clear to auscultation bilaterally Abdomen: Soft, without tenderness to palpation in all 4 quadrants of the abdomen. No guarding, rebound, or rigidity. No erythema or ecchymosis noted. Extremities:2+ pulses in all 4 extremities. No extremity tenderness or deformity noted on palpation or passive range of motion. Neurologic Exam: Alert awake oriented to person and place, no focal deficits A/P Assessment and Plan Traumatic brain injury Fall - Neurosurgical consultation, follow-up CT improving subdural hemorrhage nonsurgical management - Frequent neuro checks per ICU protocol - SBP goal less than 140 - Transfuse platelets to keep count above 100 - Severe right and mod-sev left stenosis - Dr. Hernandez will do a vascular consult also, Respiratory failure - Extubated 09/10, tolerating well - Neuro exam improving - Vent bundle - Propofol for vent synchrony - DuoNeb's when necessary Hypertension - Cardene drip-weaned off - SBP goal less than 140 - Home meds resumed by trauma Recent TAVR - Dr. Dubon following. EP consulted - carotid US - Hold antiplatelet therapy at this time Hypothyroidism - Resumed levothyroxine per home dose when available Dyslipidemia - Resume home meds Thrombocytopenia - Transfuse platelets to keep platelet count above 100 used to intracranial bleed GERD - IV Pepcid DVT GI prophylaxis - Teds SCDs - No pharmacological DVT prophylaxis due to ICH - Pepcid Critical Care: Level 3. Javi Mcclelland MD Sep 11, 2017 16:12
--- NOTE | 2017-09-11 17:49 | HHI.CCPN ---
Subjective Brief History 67 year old female presents as a transfer from [facility] in [facility] related to a fall in which she sustained an intracranial hemorrhage. The patient according to the record at [facility] is on aspirin and Plavix. The patient was seen earlier yesterday related to a fall and at that time had a CT scan of the brain that was negative. The patient then fell again after going home. According to the record the patient initially fell forward the first time striking her head and has right-sided forehead contusion associated with abrasion, and then the patient fell backwards the second time striking the back of her head. The patient had complained of headache and neck pain. The patient proceeded to have intractable nausea and vomiting and was intubated to protect her airway. At the other facility the patient was reportedly given morphine for pain, Zofran for nausea. With intractable nausea the patient was given Phenergan. The patient was then intubated with RSI and given etomidate and succinylcholine. The patient has an endotracheal tube in place on arrival. She is moving all her extremities in a purposeful way and attempting to pull out the endotracheal tube. Intubated sedated. On sedation hold follows command with RUE and bilateral lower extremity. Purposefully moves left upper extremity. Patient had a recent TAVR by Dr. Dubon. Patient diagnosed with subdural hematoma 24 Hour Review/Hospital Course 09/09 SubDural hematoma, thrombocytopenia Patient is purposeful off sedation Na135, likely chronic hemodynamically normal CT of the head is stable Received platelets for thrombocytopenia in light of SDH 09/10/17 Overnight patient has been stable and the appearance of subdural hematoma has somewhat diminished Patient is moving all 4 extremities and appears to be communicating while intubated Moves all 4 extremities Pupils equal reactive and patient follows commands on the vent Tolerates CPAP Hemodynamically intact Platelet count increased based on the transfusion of the same 09/11/17 Patient seems neurologically intact Awake alert complaining but generalized pains Carotid ultrasound reveals about 70-80% right internal carotid artery stenosis and about 60% left carotid stenosis In face of her current intracranial bleed patient is not a candidate for carotid endarterectomy and anticoagulation however I'll follow her up in my office and then scheduled for carotid surgery once she is improved probably about 6-8 weeks from now Hemodynamically patient is stable post TAVR At this point patient can be transferred to the floor Advance diet Objective Vital Signs Date Time Temp Pulse Resp B/P (MAP) Pulse Ox O2 Delivery O2 Flow Rate FiO2 09/11/17 16:43 22 09/11/17 16:00 98.1 70 143/66 (91) 93 09/11/17 08:42 21 09/11/17 07:00 Room Air 09/10/17 19:00 2.00 Intake and Output 09/11/17 09/11/17 09/12/17 08:00 16:00 00:00 Intake Total 500 ml 565 ml Output Total 350 ml Balance 150 ml 565 ml Result Diagram: 09/11/17 0520 09/11/17 0520 Other Results Laboratory Tests Test 09/11/17 07:05 Blood Gas Puncture Site LT RADIAL Blood Gas Patient Temperature 98.6 Blood Gas HCO3 23 mmol/L (22-26) Blood Gas Base Excess -0.8 mmol/L (-2-2) Blood Gas Oxygen Saturation 92 % (90-100) Arterial Blood pH 7.46 (7.380-7.420) Arterial Blood Partial Pressure CO2 33 mmHg (38-42) Arterial Blood Partial Pressure O2 68 mmHg (61-120) Arterial Blood Oxygen Content 12.9 Vol % (12.0-20.0) Arterial Blood Carboxyhemoglobin 1.8 % (0-4) Arterial Blood Methemoglobin 0.8 % (0-2) Blood Gas Hemoglobin 9.9 G/DL (12.0-16.0) Oxygen Delivery Device ROOM AIR Blood Gas Inspired Oxygen 21 % Imaging Last [address] 09/11/17 0800 Signed Impressions: Service Date/Time: August 06:13 - CONCLUSION: Stable size to the multifocal right subdural hematomas and intraventricular blood. Amador Feldman MD Chest X-Ray 09/11/17 0600 Signed Impressions: Service Date/Time: August 02:42 - CONCLUSION: Improving aeration of the lower lungs with some mild residual interstitial prominence in the left mid and lower lung. Amador Feldman MD Carotid Artery Ultrasound 09/11/17 0000 Signed Impressions: Service Date/Time: Sunday, September 10, 2017 14:53 - CONCLUSION: 1. Significant calcified plaque in both carotid systems. 2. High-grade stenosis in the proximal right ICA greater than 70%%. 3. But severe stenosis in the proximal left ICA in the 50-69%% range. 4. Antegrade flow both vertebral arteries. Aditya Whitehead MD Assessment and Plan Plan Continue neuro checks of sedation start wean process in the morning remained stable .start Tube feeds discuss chemical prophylaxis with neurosurgeon in the next 2 days 2% normal saline-to achieve normal sodium in light of traumatic brain injury Discussed with neurosurgeon Family updated at the bedside Elana Villagran MD Sep 11, 2017 17:49
[2017-09-11] MEDS ORDERED: MORPHINE SULFATE 4 MG/ML INJ ONE (19:42)
[2017-09-11] MEDS ORDERED: MORPHINE SULFATE 2 MG/ML INJ IV ONE (20:00)
[2017-09-11] MEDS: traZODone HCL 50 MG TAB PO SCH (20:33)
[2017-09-11] MEDS ORDERED: IOHEXOL 350 MG/ML 10 ML VIAL (for RAD DIAG) IVCONTRAST ONE (21:40)
--- NOTE | 2017-09-11 23:32 | RADRPT ---
EXAM DATE/TIME: 09/11/2017 21:22 [place] COMPARISON: No previous studies available for comparison. INDICATIONS : Abnormal ultrasound. Evaluate stenosis IV CONTRAST: 75 cc Omnipaque 350 (iohexol) IV RADIATION DOSE: 19.28 CTDIvol (mGy) MEDICAL HISTORY : Hypertension. Cardiovascular disease Carcinoma, breast. SURGICAL HISTORY : Hysterectomy. ENCOUNTER: Initial ACUITY: 3 days PAIN SCALE: 3/10 LOCATION: neck Elevated flow velocities and ICA/CCA ratios have been found to correlate with increased degrees of vessel stenosis, calculated as percentage of diameter relative to a normal segment of distal ICA/CCA. TECHNIQUE: Volumetric scanning was performed using a multirow detector CT scanner. The data was post processed with a variety of visualization algorithms including full-volume maximum intensity projection, multip lanar sliding thin-slab reformation, curved-planar reformation, and surface-rendering techniques. Us ing automated exposure control and adjustment of the mA and/or kV according to patient size, radiatio n dose was kept as low as reasonably achievable to obtain optimal diagnostic quality images. DICOM f ormat image data is available electronically for review and comparison. FINDINGS: AORTIC ARCH: Stent is present in the ascending aorta. Calcified plaque at the brachiocephalic, common carotid, and subclavian artery origins. No evidence of significant stenosis. Coronary artery calcifications also noted. RIGHT CAROTID: Calcified plaque is noted at the carotid bulb. Focal approximately 70% stenosis of the proximal inter nal carotid artery just distal to its origin. Calcified plaque and high-grade stenosis of the externa l carotid artery at its origin. Common carotid artery is widely patent. LEFT CAROTID: Calcified plaque is noted at the carotid bulb. Focal approximately 70% stenosis of the proximal inter nal carotid artery at its origin. No evidence of significant stenosis of the common carotid artery or external carotid artery on the left VERTEBRALS: The vertebral arteries have a symmetric diameter. No stenotic lesions are seen. Small bilateral pleural effusions and calcified granulomas at the lung apices. CONCLUSION: 1. Bilateral calcified plaque and approximately 70% stenoses of the proximal internal carotid arterie s bilaterally. 2. High-grade stenosis of right external carotid artery at its origin. Lamonte Bellamy MD on September 11, 2017 at 23:16 Board Certified Radiologist. This report was verified electronically.
[2017-09-12] VITALS (14 sets, daily range): BP systolic 144–170; BP diastolic 66–79; PULSE 68–130; RESP 18–28; TEMP 94.5–98.6; O2SAT 90–97
[2017-09-12] MEDS: oxyCODONE/ACETAMINOPHEN 10 MG/325 MG TAB PO PRN ×4 (00:20→19:47)
[2017-09-12] MEDS: MORPHINE SULFATE 2 MG/ML INJ IV PUSH PRN ×3 (02:36→21:34)
[2017-09-12] MEDS: ONDANSETRON HCL 4 MG/2 ML VIAL IV PUSH PRN (03:24)
[2017-09-12] MEDS: CHLORHEXIDINE GLUCONATE 2 % 1 PACK (2 CLOTHS) TOP SCH (04:00)
[2017-09-12] MEDS: hydrALAZINE HCL 20 MG/ML VIAL IV PUSH PRN (04:50)
[2017-09-12 05:23] LABS: AUTOMATED NEUTROPHIL # 9.3 TH/MM3 (1.8-7.7); BASOPHIL % 0.2 % (0.0-2.0); EOSINOPHIL % 0.3 % (0.0-4.0); HEMATOCRIT 31.1 % (35.0-46.0); LYMPH % 5.9 % (9.0-44.0); LYMPHOCYTE # 0.7 TH/MM3 (1.0-4.8); MEAN CELL VOLUME 98.8 FL (80.0-100.0); MEAN CORPUSCULAR HEMOGLOBIN 32.6 PG (27.0-34.0); MONO % 9.9 % (0.0-8.0); NEUT % 83.7 % (16.0-70.0); PLATELET COUNT 76 TH/MM3 (150-450); RED BLOOD COUNT 3.15 MIL/MM3 (4.00-5.30); RED CELL DISTRIBUTION WIDTH 15.8 % (11.6-17.2); WHITE BLOOD COUNT 11.1 TH/MM3 (4.0-11.0)
[2017-09-12 05:30] LABS: HEMO FLAGS AUTO DIFF
[2017-09-12] MEDS ORDERED: LORazepam 1 MG TAB PO ONE (05:30)
[2017-09-12 05:45] LABS: BICARBONATE 26.4 MEQ/L (21.0-32.0); POTASSIUM 4.1 MEQ/L (3.5-5.1)
--- NOTE | 2017-09-12 06:34 | HHI.CCPN ---
Subjective Remarks/Hospital Course 67 year old female presents as a transfer from [facility] in [facility] related to a fall in which she sustained an intracranial hemorrhage. The patient according to the record at [facility] is on aspirin and Plavix. The patient was seen earlier yesterday related to a fall and at that time had a CT scan of the brain that was negative. The patient then fell again after going home. According to the record the patient initially fell forward the first time striking her head and has right-sided forehead contusion associated with abrasion, and then the patient fell backwards the second time striking the back of her head. The patient had complained of headache and neck pain. The patient proceeded to have intractable nausea and vomiting and was intubated to protect her airway. At the other facility the patient was reportedly given morphine for pain, Zofran for nausea. With intractable nausea the patient was given Phenergan. The patient was then intubated with RSI and given etomidate and succinylcholine. The patient has an endotracheal tube in place on arrival. She is moving all her extremities in a purposeful way and attempting to pull out the endotracheal tube. SUBJ 09/10: Intubated sedated. On sedation hold follows command with RUE and bilateral lower extremity. Purposefully moves left upper extremity. Patient had a recent TAVR by Dr. Dubon. No evidence of Heart Block 09/11: Extubated yesterday tolerating well sitting up in chair. Oriented to person place and some more time. Restless. describes fall as 'loss of balance' and fall, without syncopal episodes. EP consulted by Dr. Dubon. Carotid ultrasound showed High-grade stenosis in the proximal right ICA greater than 70% , moderate to severe stenosis in the proximal left ICA in the 50-69% range. D/W Dr. Polo 09/12: Anxious having severe head ache. CT head stable right subdural and intraventricular hemorrhage. On when necessary morphine and Percocet. Home medication BuSpar and Morphine ER restarted. Slightly groggy today from Ativan and morphine given about an hour ago. Objective Vital Signs Date Time Temp Pulse Resp B/P (MAP) Pulse Ox O2 Delivery O2 Flow Rate FiO2 09/12/17 06:00 108 09/12/17 04:00 98.3 22 170/76 (107) 94 09/11/17 22:00 Nasal Cannula 2.00 09/11/17 08:42 21 Intake and Output 09/12/17 09/12/17 09/13/17 08:00 16:00 00:00 Intake Total 550 ml Output Total 850 ml Balance -300 ml Result Diagram: 09/12/17 0500 09/12/17 0500 Other Results Laboratory Tests Test 09/11/17 07:05 Blood Gas Puncture Site LT RADIAL Blood Gas Patient Temperature 98.6 Blood Gas HCO3 23 mmol/L (22-26) Blood Gas Base Excess -0.8 mmol/L (-2-2) Blood Gas Oxygen Saturation 92 % (90-100) Arterial Blood pH 7.46 (7.380-7.420) Arterial Blood Partial Pressure CO2 33 mmHg (38-42) Arterial Blood Partial Pressure O2 68 mmHg (61-120) Arterial Blood Oxygen Content 12.9 Vol % (12.0-20.0) Arterial Blood Carboxyhemoglobin 1.8 % (0-4) Arterial Blood Methemoglobin 0.8 % (0-2) Blood Gas Hemoglobin 9.9 G/DL (12.0-16.0) Oxygen Delivery Device ROOM AIR Blood Gas Inspired Oxygen 21 % Imaging Last 24 hours Impressions Pelvis X-Ray 09/09/17123 Signed Impressions: Service Date/Time: Saturday, September 09, 2017 01:22 - CONCLUSION: No fracture seen. Amorphous calcification superior to the left greater trochanter is of uncertain significance. CT is pending. Amador Feldman MD Maxillofacial CT 09/09/17123 Signed Impressions: Service Date/Time: Saturday, September 09, 2017 01:32 - CONCLUSION: 1. No facial bone fracture seen. 2. Mild ethmoid sinus disease. Amador Feldman MD Head CT 09/09/17123 Signed Impressions: Service Date/Time: Saturday, September 09, 2017 01:32 - CONCLUSION: 1. Evidence of closed head injury with 1 cm right subdural hematoma extending from the high convexity, subarachnoid blood along the right tentorium and interhemispheric fissure, right hemispheric edema with 3 mm midline shift towards the left, and intraventricular blood in the left occipital horn. 2. Right frontoparietal and right occipital scalp hematomas. No skull fracture seen. Amador Feldman MD Chest X-Ray 09/09/17123 Signed Impressions: Service Date/Time: Saturday, September 09, 2017 01:22 - CONCLUSION: The lungs are clear. No evidence of pneumothorax. Amador Feldman MD Chest CT 09/09/17123 Signed Impressions: Service Date/Time: Saturday, September 09, 2017 01:44 - CONCLUSION: 1. No evidence pneumothorax. 2. Bibasilar atelectasis. 3. Focal 12 mm opacity lateral left mid lung may represent pulmonary contusion, focal infiltrate, or mass. Recommend followup scan to assure resolution. Amador Feldman MD Cervical Spine CT 09/09/17123 Signed Impressions: Service Date/Time: Saturday, September 09, 2017 01:32 - CONCLUSION: No evidence of compression deformity or spondylolisthesis. Amador Feldman MD Abdomen/Pelvis CT 09/09/17123 Signed Impressions: Service Date/Time: Saturday, September 09, 2017 01:44 - CONCLUSION: Negative trauma CT abdomen/pelvis with contrast. Amador Feldman MD Objective Remarks General: The patient is lying in bed somnolent but wakes up easily Head and Neck exam: Swelling along the right side of the forehead with ecchymosis noted an overlying abrasion. Eyes: Pupils are equal round and reactive to light. Nose: Midline septum with pink mucous membranes Mouth: Moist mucus membranes. Neck: No tracheal deviation. The trachea appears midline. Mild carotid bruit bilaterally Cardiovascular: Regular rate and rhythm no gallops, or rubs. Grade 2 systolic murmur heard in all areas Lungs: Clear to auscultation bilaterally Abdomen: Soft, without tenderness. No guarding, rebound, or rigidity. No erythema or ecchymosis noted. Extremities:2+ pulses in all 4 extremities. No extremity tenderness Neurologic Exam: Alert awake oriented to person and place, no focal deficits. Follows commands but appears anxious and fidgety A/P Assessment and Plan Traumatic brain injury Fall Bilateral carotid stenosis. (High-grade stenosis in the proximal right ICA, moderate to severe proximal left ICA) - Neurosurgery Dr. Garcia, follow-up CT 09/11 stable subdural and intraventricular hemorrhage - Frequent neuro checks per ICU protocol - SBP goal less than 140 - Transfuse platelets to keep count above 100 - Severe right and mod-sev left stenosis-D/W Dr. Polo, OP repair in 6-8 weeks Anxiety/chronic pain - Restarted on home medications morphine ER, BuSpar Respiratory failure - Extubated 09/10, tolerating well - Neuro exam improving - DuoNeb's when necessary - IS EzPAP Hypertension - Cardene weaned off - SBP goal less than 140 - Home BP meds resumed by trauma Recent TAVR - Dr. Dubon following. EP consulted - Carotid US-as above - Hold antiplatelet therapy at this time Hypothyroidism - Resumed levothyroxine per home Dyslipidemia - Resume home meds Thrombocytopenia - Transfuse platelets to keep platelet count above 100 used to intracranial bleed GERD - IV Pepcid DVT GI prophylaxis - Teds SCDs - No pharmacological DVT prophylaxis due to ICH - Pepcid Critical Care: Level 3. Javi Mcclelland MD Sep 12, 2017 06:34
[2017-09-12 06:52] LABS: PLATELET ESTIMATE SMEAR LOW (NORMAL); PLATELET MORPHOLOGY NORMAL (NORMAL); SCAN/DIFF AUTO DIFF CONFIRMED
[2017-09-12 07:52] LABS: BACTERIA, URINE RARE /hpf; BLOOD, URINE NEG (NEG); COMMENT (UR) CULT NOT INDICATED; CULTURE IF INDICATED CULT NOT INDICATED; GLUCOSE,URINE NEG (NEG); KETONE, URINE TRACE mg/dL (NEG); NITRITE,URINE NEG (NEG); URINE COLOR COLORLESS (YELLW/STRAW)
--- NOTE | 2017-09-12 08:17 | HHI.PR ---
Neuropsych Emotional Emotional: Moderate: Anxious/Fearful Behavior Behavior: Mild: Cooperative w/ Treatment, Motivation, Moderate: Coping/ Acceptance Cognitive Cognitive: Mild: Cognitive, Attention/Concentration, Confused/Orientation, Insight/Awareness, Judgement/Problem-Solving, Memory Psychosocial Psychosocial: Intact: Psychosocial, Family/Other Adjustment, Realistic Expectation, Unable to Asses: Self-Esteem/Confidence Progress Notes/Response to Tx Contents of Sessions: Adjustment Time with Patient: 15 minutes Premorbid psychological status Premorbid Cognitive, Emotional and Behavioral Status: Stable. The patient has high school years of education and is retired. The patient has prior psychiatric difficulties, as described above. Substance abuse history is unremarkable. Behavioral Reactions of Patient and Family/Support System: Stable. The patients family is experiencing ongoing issues of adjustment given the nature of the injury, and this aspect of recovery will require ongoing monitoring. Emotional/Behavioral Status of Patient and Family/Support System: Stable. Pertinent issues, if appropriate to this patients clinical care, are described in detail above. Maximizing acute care outcome It is recommended that the patient be monitored for emergent behavioral impulsivity as the medical condition evolves. This patients neuropathological challenges may limit her rehabilitation potential going forward, and these challenges will require specialized therapeutic skills to maximize outcome. At this point in the recovery process, the patient has questionable cognitive capacity as the patient is unable to fully understand a situation and its likely consequences, nor is she able to consistently manipulate information rationally. Cognitive capacity will be assessed throughout the recovery process. Anticipated Problems Ongoing areas of concern will include behavioral impulsivity, lack of insight and judgment, which is expected to improve with time and treatment. Presently , the patient is awake, alert but she is restless concerning her pain level. Treatment Plan This clinician will continue to follow with you throughout the course of this patients acute care treatment, and I will be available to meet with the patient s family/support system to facilitate their understanding and the ongoing care of their family member. The goals of neuropsychological intervention shall be both educational and supportive to the family/support system as is deemed clinically appropriate. [facility] Level: :Confused-appropriate Impression This is a 67 year old woman s/p complicated mild traumatic brain injury and pain preoccupation and baseline psychiatric issues. Diagnosis: (1) Mild major neurocognitive disorder due to traumatic brain injury with behavioral disturbance (2) Adjustment disorder with anxiety Progress Note Narrative Ongoing follow-up of patient seen during daily trauma rounds. This is day 3 post injury. The patient continues to become anxious concerning her head pain. She is started back on her home meds which included Buspar and Effexor, and she was also started on Trazodone 50 HS to facilitate sleep. She is [place] at least. Given her anxiety issues (she was tearful and complaining of various pain issues today), consider starting Klonopin 0.25 BID PRN unless medically contraindicated. I will continue to follow. Juan Arechiga PhD Sep 12, 2017 8:17 am
[2017-09-12] MEDS: levETIRAcetam INJ 500 MG in SODIUM CHLORIDE 0.9% INJ 100 ML IV SCH (09:52)
[2017-09-12] MEDS: VENLAFAXINE HCL XR 75 MG CAP PO SCH (09:52)
[2017-09-12] MEDS: SPIRONOLACTONE 25 MG TAB PO SCH (09:52)
[2017-09-12] MEDS: METOPROLOL TARTRATE 50 MG TAB PO SCH (09:52)
[2017-09-12] MEDS: LISINOPRIL 10 MG TAB PO SCH (09:53)
[2017-09-12] MEDS: DOCUSATE SODIUM 50 MG/SENNA 8.6 MG TAB PO SCH ×2 (09:53→21:34)
[2017-09-12] MEDS: MORPHINE SULFATE 30 MG CONTROLLED RELEASE TAB PO SCH (09:53)
[2017-09-12] MEDS: busPIRone HCL 5 MG TAB PO SCH ×3 (09:56→17:50)
--- NOTE | 2017-09-12 11:04 | MB ---
cc: ELANA STEVENSON MD DATE OF CONSULTATION 09/12/2017 REASON FOR CONSULTATION Bilateral carotid stenosis, fall. HISTORY OF PRESENT DISEASE This 67-year-old female sustained a fall from a standing position and was transferred to [facility] and then signed out AMA. The patient then fell again at home and was transferred again to the hospital. At this time she was noted to have a subdural and subarachnoid hemorrhage and was transferred to our institution for further care. The patient at the time was intubated and ventilated. Past medical history is that of noted subdural hematoma, some degree of thrombocytopenia and previous TAVR placement by Dr. Dubon about 2 weeks ago. The patient was on Plavix at the time. The patient was admitted to intensive care and cardiology was consulted as well as neurosurgery. The patient was managed and in the process of work-up had an ultrasound of the carotids which revealed high-grade bilateral stenosis. This was followed by CTA which revealed the same. Question arises about further management. PHYSICAL EXAMINATION GENERAL: A 67-year-old female awake, alert and oriented. [place] Coma Scale is 15. HEENT: Normocephalic. Trauma to the head as above-noted. Pupils equal and reactive. Extraocular muscles intact. NECK: Bilateral carotid pulses. Bilateral carotid bruits. CHEST: Bilateral breath sounds. HEART: Regular rhythm. The patient currently is not in atrial fibrillation. ABDOMEN: Soft. Active bowel sounds. No rebound or guarding. No masses. EXTREMITIES: Within normal limits. The patient has palpable femoral pulses, palpable popliteal pulses, palpable dorsalis pedis and posterior tibial by Doppler. IMPRESSION AND RECOMMENDATIONS Patient with bilateral 70+% stenosis initially diagnosed with ultrasound confirmed with CTA of the neck. There is no question at this point that the patient had a syncopal episode and was losing balance because of the carotid insufficiency and diminished blood flow to the brain. This patient will definitely require bilateral carotid endarterectomy in the future. Considering that she has a current intracranial hemorrhage she will not be a candidate for surgery for at least another month or two. I am going to follow-up with the patient and schedule her for carotid endarterectomy one at the time. Thank you very much for the referral. Critical care time 40 minutes. Elana CHEN/JEANETTE /10:15 AM /10:38 AM
--- NOTE | 2017-09-12 11:37 | HHI.CCPN ---
Subjective Brief History 67 year old female presents as a transfer from [facility] in [facility] related to a fall in which she sustained an intracranial hemorrhage. The patient according to the record at [facility] is on aspirin and Plavix. The patient was seen earlier yesterday related to a fall and at that time had a CT scan of the brain that was negative. The patient then fell again after going home. According to the record the patient initially fell forward the first time striking her head and has right-sided forehead contusion associated with abrasion, and then the patient fell backwards the second time striking the back of her head. The patient had complained of headache and neck pain. The patient proceeded to have intractable nausea and vomiting and was intubated to protect her airway. At the other facility the patient was reportedly given morphine for pain, Zofran for nausea. With intractable nausea the patient was given Phenergan. The patient was then intubated with RSI and given etomidate and succinylcholine. The patient has an endotracheal tube in place on arrival. She is moving all her extremities in a purposeful way and attempting to pull out the endotracheal tube. Intubated sedated. On sedation hold follows command with RUE and bilateral lower extremity. Purposefully moves left upper extremity. Patient had a recent TAVR by Dr. Dubon. Patient diagnosed with subdural hematoma 24 Hour Review/Hospital Course 09/09 SubDural hematoma, thrombocytopenia Patient is purposeful off sedation Na135, likely chronic hemodynamically normal CT of the head is stable Received platelets for thrombocytopenia in light of SDH 09/10/17 Overnight patient has been stable and the appearance of subdural hematoma has somewhat diminished Patient is moving all 4 extremities and appears to be communicating while intubated Moves all 4 extremities Pupils equal reactive and patient follows commands on the vent Tolerates CPAP Hemodynamically intact Platelet count increased based on the transfusion of the same 09/11/17 Patient seems neurologically intact Awake alert complaining but generalized pains Carotid ultrasound reveals about 70-80% right internal carotid artery stenosis and about 60% left carotid stenosis In face of her current intracranial bleed patient is not a candidate for carotid endarterectomy and anticoagulation however I'll follow her up in my office and then scheduled for carotid surgery once she is improved probably about 6-8 weeks from now Hemodynamically patient is stable post TAVR At this point patient can be transferred to the floor Advance diet 09/12/17 Patient is awake and alert Repeat CAT scan revealed the right subdural hemorrhage with some intraventricular blood but stable and diminishing Patient has fairly significant headache is not unexpected Carotid ultrasound and CTA were performed which revealed bilateral 70% plus carotid stenosis and these will have to be dealt with in the near future At this point patient has intracranial hemorrhage so carotid endarterectomy is out of question. Once patient improves in about a month we'll repeat the CAT scan then proceed with carotid endarterectomy one of the time Transfer patient to floor today and probably discharge patient to rehabilitation the next few days Objective Vital Signs Date Time Temp Pulse Resp B/P (MAP) Pulse Ox O2 Delivery O2 Flow Rate FiO2 09/12/17 06:00 108 09/12/17 04:00 98.3 22 170/76 (107) 94 09/11/17 22:00 Nasal Cannula 2.00 09/11/17 08:42 21 Intake and Output 09/12/17 09/12/17 09/13/17 08:00 16:00 00:00 Intake Total 550 ml Output Total 850 ml Balance -300 ml Result Diagram: 09/12/17 0500 09/12/17 0500 Assessment and Plan Plan Continue neuro checks of sedation start wean process in the morning remained stable .start Tube feeds discuss chemical prophylaxis with neurosurgeon in the next 2 days 2% normal saline-to achieve normal sodium in light of traumatic brain injury Discussed with neurosurgeon Family updated at the bedside Attestation Critical care time 35 minutes Elana Villagran MD Sep 12, 2017 11:37
--- NOTE | 2017-09-12 13:05 | HHI.NSPN ---
(Jessy Contreras) Note Status Status: Progress Note (Jessy Contreras) Interval History Interval History 67 year old female who was transferred from [facility] for subdural hematoma. She had recently suffered multiple falls and is on aspirin and Plavix. She was vomiting and agitated. She was intubated at [facility]. A neurosurgical evaluation was requested. 09/10: becomes agitated when sedation is decreased, currently intubated and sedated. Opening eyes and spontaneously moves x 4 extremities. 09/11: extubated yesterday, mildly restless wanting out of bed. moves all four extremities. f/u CT Head this morning completed. 09/12: awake and more conversant today, remains somewhat confused, oriented to name and city. (Jessy Contreras) Labs, Micro, & Vital Signs Results Date Time Temp Pulse Resp B/P (MAP) Pulse Ox O2 Delivery O2 Flow Rate FiO2 09/12/17 12:00 73 09/12/17 12:00 98.1 73 28 144/67 (92) 94 09/12/17 10:00 79 09/12/17 08:00 85 09/12/17 08:00 98.4 85 27 156/70 (98) 97 09/12/17 07:00 97 Nasal Cannula 2.00 09/12/17 06:00 108 09/12/17 05:00 130 09/12/17 04:00 98.3 81 22 170/76 (107) 94 09/12/17 04:00 81 09/12/17 02:00 68 09/12/17 00:00 92 09/12/17 00:00 98.0 92 20 170/74 (106) 93 09/11/17 22:00 80 09/11/17 22:00 95 Nasal Cannula 2.00 09/11/17 20:00 84 09/11/17 20:00 98.3 74 22 140/64 (89) 91 09/11/17 19:00 90 Nasal Cannula 2.00 09/11/17 18:02 25 09/11/17 18:00 78 09/11/17 16:43 22 09/11/17 16:00 98.1 70 20 143/66 (91) 93 09/11/17 16:00 74 09/11/17 14:00 76 Constitutional Vital Signs Date Time Temp Pulse Resp B/P (MAP) Pulse Ox O2 Delivery O2 Flow Rate FiO2 09/12/17 12:00 73 09/12/17 12:00 98.1 73 28 144/67 (92) 94 09/12/17 10:00 79 09/12/17 08:00 85 09/12/17 08:00 98.4 85 27 156/70 (98) 97 09/12/17 07:00 97 Nasal Cannula 2.00 09/12/17 06:00 108 09/12/17 05:00 130 09/12/17 04:00 98.3 81 22 170/76 (107) 94 09/12/17 04:00 81 09/12/17 02:00 68 09/12/17 00:00 92 09/12/17 00:00 98.0 92 20 170/74 (106) 93 09/11/17 22:00 80 09/11/17 22:00 95 Nasal Cannula 2.00 09/11/17 20:00 84 09/11/17 20:00 98.3 74 22 140/64 (89) 91 09/11/17 19:00 90 Nasal Cannula 2.00 09/11/17 18:02 25 09/11/17 18:00 78 09/11/17 16:43 22 09/11/17 16:00 98.1 70 20 143/66 (91) 93 09/11/17 16:00 74 09/11/17 14:00 76 (Jessy Contreras) Review of Systems Constitutional: COMPLAINS OF: Fatigue Cardiovascular: DENIES: Chest pain Gastrointestinal: DENIES: Vomiting Neurologic: COMPLAINS OF: Headache (mild), DENIES: Localized weakness, Seizures (Jessy Contreras) Physical Exam Ms. Mercado appears mildly uncomfortable, intermittently groaning but awake and conversing more today. Oriented to name and place only. Cranial Nerves: Pupils 3-4 mm equal, round, reactive to light. Face musculature appeared symmetrical at rest. Cervical Spine: soft, supple Motor: muscle tone and bulk are normal. intermittent purposeful movements x 4 extremities Sensory: responds to painful stimuli, localizing with both upper and lower extremities. Reflexes: Deep tendon reflexes are 1+ in the upper and lower extremities. bilateral plantar flexion response. Cerebellar: cannot assessed due to the patient's condition (Jessy Contreras) The patient is alert, confused, oriented to self. Cranial nerve examination demonstrates the pupils to be equal, round, and reactive to light. Extra-ocular movements are intact with normal convergence. Facial motor function appears normal and symmetrical. Face sensation, hearing, visual louies, and olfaction can not be assessed properly due to the patients condition. The patient has an intact corneal reflex and a gag reflex. Sternocleidomastoid and trapezius have normal and symmetrical strength. Other cranial nerves are intact. Neck is soft and supple. Cervical spine has a normal range of motion of the cervical spine without pain. There is no tenderness to palpation to the spinous processes or paraspinal muscles. Muscle testing reveals normal bulk and tone overall without rigidity, spasticity , fasciculations, or atrophy. Muscle strength is 5/5 in all muscle groups of both upper and lower extremities. Deep tendon reflexes are 1+ and symmetrical in the biceps, triceps, and brachioradialis, bilaterally, in the upper extremities. In the lower extremities , the patellar and Achilles are 1+, bilaterally. There is a bilateral plantar flexion response. Hoffmanns sign is negative. There is no clonus or other abnormal reflexes noted. Cerebellar examination is limited due to the patient condition, but no obvious deficits are noted. (Dax Garcia MD) Medications Current Medications Current Medications Medications (Trade) Dose Ordered Sig/Tonja Route PRN Reason Start Time Stop Time Status Last Admin Dose Admin Miscellaneous Information 1 Q361D XX 09/09/17 02:00 09/09/17 02:00 Chlorhexidine Gluconate (Chlorhexidine 2% Cloth) 3 pack Taper DAILY@04 TOP 09/09/17 04:00 09/05/18 03:59 09/10/17 00:42 Chlorhexidine Gluconate (Chlorhexidine 2% Cloth) 3 pack UNSCH PRN TOP HYGIENIC CARE 09/09/17 02:00 Senna/Docusate Sodium (Yamilet-Colace) 1 tab BID PO 09/09/17 09:00 09/12/17 09:53 Magnesium Hydroxide (Milk Of Magnesia Liq) 30 ml Q12H PRN PO Mild constipation 09/09/17 02:00 Sennosides (Senokot) 17.2 mg Q12H PRN PO Moderate constipation 09/09/17 02:00 Bisacodyl (Dulcolax Supp) 10 mg DAILY PRN RECTAL SEVERE CONSITIPATION 09/09/17 02:00 Lactulose (Lactulose Liq) 30 ml DAILY PRN PO SEVERE CONSITIPATION 09/09/17 02:00 Levetriacetam 500 mg/Sodium Chloride 105 ml @ 420 mls/hr Q12HR IV 09/09/17 02:30 09/12/17 09:52 Hydralazine HCl (Apresoline Inj) 20 mg Q4H PRN IV PUSH SYS BP GREATER THAN 160 MMHG 09/10/17 13:45 09/12/17 04:50 Ondansetron HCl (Zofran Inj) 4 mg Q6H PRN IV PUSH NAUSEA OR VOMITING 09/10/17 15:45 09/12/17 03:24 Morphine Sulfate (Morphine Inj) 3 mg Q3H PRN IV PUSH BREAKTHROUGH PAIN 09/11/17 09:45 09/12/17 02:36 Oxycodone/ Acetaminophen (Percocet 5-325 Mg) 1 tab Q4H PRN PO pain 3-5 09/11/17 09:30 Oxycodone/ Acetaminophen (Percocet 10-325 Mg) 1 tab Q4H PRN PO pain 6-10 09/11/17 09:30 09/12/17 04:49 Lisinopril (Prinivil) 10 mg DAILY PO 09/11/17 09:30 09/12/17 09:53 Metoprolol Tartrate (Lopressor) 50 mg DAILY PO 09/11/17 09:30 09/12/17 09:52 Spironolactone (Aldactone) 25 mg DAILY PO 09/11/17 09:30 09/12/17 09:52 Venlafaxine HCl (Effexor Xr) 150 mg DAILY PO 09/11/17 09:30 09/12/17 09:52 Trazodone HCl (Desyrel) 50 mg HS PO 09/11/17 21:00 09/11/17 20:33 Buspirone HCl (Buspar) 5 mg TID PO 09/12/17 09:00 09/12/17 09:56 Morphine Sulfate (Oramorph Sr) 30 mg DAILY PO 09/12/17 09:00 09/12/17 09:53 (Jessy Contreras) Current Medications Current Medications Fentanyl Citrate (fentaNYL INJ) 100 mcg STK-MED ONCE .ROUTE ; Start 09/09/17 at 01:25; Stop 09/09/17 at 01:26; Status DC Iohexol (Omnipaque 350 Inj) 100 ml STK-MED ONCE IVCONTRAST Last administered on 09/09/17 01:48; Start 09/09/17 at 01:48; Stop 09/09/17 at 01:49; Status DC Sodium Chloride 1,000 ml @ 100 mls/hr Q10H IV Last administered on 09/09/17 12:59; Start 09/09/17 at 01:55; Stop 09/09/17 at 13:25; Status DC Famotidine (Pepcid Inj) 20 mg Q12HR IV PUSH Last administered on 09/11/17 09: 15; Start 09/09/17 at 02:00; Stop 09/11/17 at 14:59; Status DC Miscellaneous Information 1 Q361D XX Last administered on 09/09/17 02:00; Start 09/09/17 at 02:00 Chlorhexidine Gluconate (Chlorhexidine 2% Cloth) 3 pack Taper DAILY@04 TOP Last administered on 09/10/17 00:42; Start 09/09/17 at 04:00; Stop 09/05/18 at 03:59 Chlorhexidine Gluconate (Chlorhexidine 2% Cloth) 3 pack UNSCH PRN TOP HYGIENIC CARE; Start 09/09/17 at 02:00 Senna/Docusate Sodium (Yamilet-Colace) 1 tab BID PO Last administered on 09:53; Start 09/09/17 at 09:00 Magnesium Hydroxide (Milk Of Magnesia Liq) 30 ml Q12H PRN PO Mild constipation ; Start 09/09/17 at 02:00 Sennosides (Senokot) 17.2 mg Q12H PRN PO Moderate constipation Last administered on 09/12/17 14:50; Start 09/09/17 at 02:00 Bisacodyl (Dulcolax Supp) 10 mg DAILY PRN RECTAL SEVERE CONSITIPATION; Start 09/09/17 at 02:00 Lactulose (Lactulose Liq) 30 ml DAILY PRN PO SEVERE CONSITIPATION; Start 09/09 at 02:00 Propofol 100 ml @ 2.019 mls/ hr TITRATE PRN IV SEDATION Last administered on 09/10/17 06:01; Start 09/09/17 at 02:00; Stop 09/10/17 at 15:31; Status DC Fentanyl Citrate 250 ml @ 5 mls/hr TITRATE PRN IV SEDATION; Start 09/09/17 at 02:00; Stop 09/09/17 at 02:04; Status DC Fentanyl Citrate 250 ml @ 5 mls/hr TITRATE PRN IV SEDATION Last administered on 09/10/17 02:38; Start 09/09/17 at 02:15; Stop 09/10/17 at 15:31; Status DC Diltiazem HCl 125 mg/Sodium Chloride 125 ml @ 5 mls/hr TITRATE PRN IV Tachycardia; Start 09/09/17 at 02:30; Status Cancel Levetriacetam 500 mg/Sodium Chloride 105 ml @ 420 mls/hr Q12HR IV Last administered on 09/12/17 09:52; Start 09/09/17 at 02:30 Nicardipine HCl 25 mg/Sodium Chloride 250 ml @ 50 mls/hr TITRATE PRN IV Blood Pressure Management; Start 09/09/17 at 03:45; Stop 09/09/17 at 09:27; Status DC Vancomycin HCl (Vancomycin Inj) 1,000 mg STK-MED ONCE .ROUTE ; Start 09/09/17 at 08:13; Stop 09/09/17 at 08:14; Status DC Thrombin (Thrombin Top Soln) 10,000 units STK-MED ONCE .ROUTE ; Start 09/09/17 at 08:13; Stop 09/09/17 at 08:14; Status DC Cefazolin Sodium/ Dextrose 50 ml @ As Directed STK-MED ONCE .ROUTE ; Start 09/14 at 08:13; Stop 09/09/17 at 08:14; Status DC Gelatin (Gelfoam 100 Top) 1 foam STK-MED ONCE .ROUTE ; Start 09/09/17 at 08:13 ; Stop 09/09/17 at 08:14; Status DC Furosemide (Lasix Inj) 40 mg STK-MED ONCE .ROUTE ; Start 09/09/17 at 08:14; Stop 09/09/17 at 08:15; Status DC Levetriacetam (Keppra Inj) 1,000 mg STK-MED ONCE IV ; Start 09/09/17 at 08:14; Stop 09/09/17 at 08:15; Status DC Bacitracin (Baciguent Oint) 15 applic STK-MED ONCE .ROUTE ; Start 09/09/17 at 08:14; Stop 09/09/17 at 08:15; Status DC Gentamicin Sulfate (Gentamicin Inj) 240 mg STK-MED ONCE .ROUTE ; Start at 08:14; Stop 09/09/17 at 08:15; Status DC Mannitol 100 ml @ As Directed STK-MED ONCE .ROUTE ; Start 09/09/17 at 08:14; Stop 09/09/17 at 08:15; Status DC Lidocaine/ Epinephrine (Xylocaine-Epi 1%-1:100,000 Inj) 20 ml STK-MED ONCE .ROUTE ; Start 09/09/17 at 08:15; Stop 09/09/17 at 08:16; Status DC Sodium Chloride 250 ml @ As Directed STK-MED ONCE .ROUTE ; Start 09/09/17 at 08:15; Stop 09/09/17 at 08:16; Status DC Sodium Chloride 188 meq/Sodium Chloride 1,047 ml @ 40 mls/hr Q24H IV Last administered on 09/10/17t 20:50; Start 09/09/17 at 16:00; Stop 09/11/17 at 09 :29; Status DC Potassium Chloride 100 ml @ 50 mls/hr Q2H PRN IV For Potassium 2.8 - 3.2 mEq/ L Last administered on 09/11/17t 18:01; Start 09/09/17 at 13:45; Stop at 12:37; Status DC Potassium Chloride 100 ml @ 50 mls/hr Q2H PRN IV For Potassium 2.8 - 3.2 mEq/ L Last administered on 09/10/17t 02:40; Start 09/09/17 at 13:45; Stop at 12:37; Status DC Potassium Bicarb/ Potassium Chloride (K-Lyte Cl Eff) 50 meq UNSCH PRN PO For Potassium 3.3 - 3.5 mEq/L; Start 09/09/17 at 13:45; Stop 09/12/17 at 12:37; Status DC Potassium Chloride 100 ml @ 25 mls/hr UNSCH PRN IV For Potassium 3.3 - 3.5 mEq /L; Start 09/09/17 at 13:45; Stop 09/12/17 at 12:37; Status DC Potassium Chloride 100 ml @ 50 mls/hr Q2H PRN IV For Potassium 3.3 - 3.5 mEq/L ; Start 09/09/17 at 13:45; Stop 09/12/17 at 12:37; Status DC Magnesium Sulfate 4 gm/Sodium Chloride 100 ml @ 50 mls/hr UNSCH PRN IV For Magnesium 0.9 - 1.1 mg/dL; Start 09/09/17 at 13:45; Stop 09/12/17 at 12:37; Status DC Magnesium Oxide (Mag-Ox) 800 mg UNSCH PRN PO For Magnesium 1.2 - 1.6 mg/dL; Start 09/09/17 at 13:45; Stop 09/12/17 at 12:37; Status DC Magnesium Sulfate 2 gm/Sodium Chloride 100 ml @ 50 mls/hr UNSCH PRN IV For Magnesium 1.2 - 1.6 mg/dL; Start 09/09/17 at 13:45; Stop 09/12/17 at 12:37; Status DC Potassium Phosphate (K-Phos) 2,000 mg Q4H PRN PO For Phosphorus < 2.5 mg/dL; Start 09/09/17 at 13:45; Stop 09/12/17 at 12:37; Status DC Sodium Phosphate 30 mmol/Sodium Chloride 250 ml @ 42 mls/hr UNSCH PRN IV For Phosphorus < 2.5 mg/dL; Start 09/09/17 at 13:45; Stop 09/12/17 at 12:37; Status DC Potassium Phosphate (K-Phos) 2,000 mg UNSCH PRN PO/TUBE SEE LABEL COMMENTS; Start 09/09/17 at 13:45; Stop 09/12/17 at 12:37; Status DC Potassium Phosphate 30 mmol/ Sodium Chloride 260 ml @ 42 mls/hr UNSCH PRN IV SEE LABEL COMMENTS; Start 09/09/17 at 13:45; Stop 09/12/17 at 12:37; Status DC Sodium Chloride 188 meq/Sodium Chloride 1,047 ml @ 40 mls/hr Q24H IV ; Start 09/09/17 at 16:30; Stop 09/09/17 at 16:30; Status DC Pneumococcal Polyvalent Vaccine (Pneumovax-23 Inj) 25 mcg ONCE ONCE IM Last administered on 09/10/17 10:59; Start 09/10/17 at 10:00; Stop 09/10/17 at 10 :01; Status DC Sodium Chloride 1,000 ml @ 999 mls/hr Q1H1M IV Last administered on 05:17; Start 09/10/17 at 04:30; Stop 09/10/17 at 06:30; Status DC Metoprolol Tartrate (Lopressor Inj) 5 mg Q6H IV PUSH Last administered on 09/11 05:00; Start 09/10/17 at 11:00; Stop 09/11/17 at 14:59; Status DC Chlorhexidine Gluconate (Peridex 0.12% Liq) 15 ml BID@08,20 MT Last administered on 09/10/17 19:46; Start 09/10/17 at 20:00; Stop 09/11/17 at 14 :59; Status DC Furosemide (Lasix Inj) 20 mg ONCE ONCE IV PUSH Last administered on 10:36; Start 09/10/17 at 09:30; Stop 09/10/17 at 10:02; Status DC Hydralazine HCl (Apresoline Inj) 20 mg Q4H PRN IV PUSH SYS BP GREATER THAN 160 MMHG Last administered on 09/12/17 04:50; Start 09/10/17 at 13:45 Ondansetron HCl (Zofran Inj) 4 mg STK-MED ONCE .ROUTE Last administered on 15:00; Start 09/10/17 at 14:55; Stop 09/10/17 at 14:56; Status DC Morphine Sulfate (Morphine Inj) 2 mg STK-MED ONCE .ROUTE Last administered on 09/10/17 15:00; Start 09/10/17 at 14:56; Stop 09/10/17 at 14:57; Status DC Morphine Sulfate (Morphine Inj) 2 mg Q3H PRN IV PUSH PAIN SCALE 5 TO 10 Last administered on 09/11/17 07:00; Start 09/10/17 at 15:45; Stop 09/11/17 at 09 :28; Status DC Ondansetron HCl (Zofran Inj) 4 mg Q6H PRN IV PUSH NAUSEA OR VOMITING Last administered on 09/12/17 03:24; Start 09/10/17 at 15:45 Morphine Sulfate (Morphine Inj) 3 mg Q3H PRN IV PUSH BREAKTHROUGH PAIN Last administered on 09/12/17 16:49; Start 09/11/17 at 09:45 Oxycodone/ Acetaminophen (Percocet 5-325 Mg) 1 tab Q4H PRN PO pain 3-5; Start 09/11/17 at 09:30 Oxycodone/ Acetaminophen (Percocet 10-325 Mg) 1 tab Q4H PRN PO pain 6-10 Last administered on 09/12/17 14:51; Start 09/11/17 at 09:30 Lisinopril (Prinivil) 10 mg DAILY PO Last administered on 09/12/17 09:53; Start 09/11/17 at 09:30 Metoprolol Tartrate (Lopressor) 50 mg DAILY PO Last administered on 09/12/17 09:52; Start 09/11/17 at 09:30 Spironolactone (Aldactone) 25 mg DAILY PO Last administered on 09/12/17 09:52 ; Start 09/11/17 at 09:30 Venlafaxine HCl (Effexor Xr) 150 mg DAILY PO Last administered on 09/12/17 09 :52; Start 09/11/17 at 09:30 Trazodone HCl (Desyrel) 50 mg HS PO Last administered on 09/11/17 20:33; Start 09/11/17 at 21:00 Morphine Sulfate (Morphine Inj) 4 mg STK-MED ONCE .ROUTE ; Start 09/11/17 at 19 :42; Stop 09/11/17 at 19:43; Status DC Morphine Sulfate (Morphine Inj) 4 mg NOW ONCE IV Last administered on 19:40; Start 09/11/17 at 20:00; Stop 09/11/17 at 20:01; Status DC Iohexol (Omnipaque 350 Inj) 75 ml STK-MED ONCE IVCONTRAST Last administered on 09/11/17 21:40; Start 09/11/17 at 21:40; Stop 09/11/17 at 21:41; Status DC Lorazepam (Ativan) 1 mg NOW ONCE PO Last administered on 09/12/17 05:55; Start 09/12/17 at 05:30; Stop 09/12/17 at 05:31; Status DC Buspirone HCl (Buspar) 5 mg TID PO Last administered on 09/12/17 09:56; Start 09/12/17 at 09:00 Morphine Sulfate (Oramorph Sr) 30 mg DAILY PO Last administered on 09/12/17 09:53; Start 09/12/17 at 09:00 (Dax Garcia MD) Medical Decision Making MDM Remarks 67 y/o female ground level fall, with TBI, subdural hematoma, stable follow up CT Head neurologically stable, clinically improving (Jessy Contreras) MDM Remarks Last [address] 09/11/17 0800 Signed Impressions: Service Date/Time: August 06:13 - CONCLUSION: Stable size to the multifocal right subdural hematomas and intraventricular blood. Amador Feldman MD Chest X-Ray 09/11/17 0600 Signed Impressions: Service Date/Time: August 02:42 - CONCLUSION: Improving aeration of the lower lungs with some mild residual interstitial prominence in the left mid and lower lung. Amador Feldman MD Neck CTA 09/11/17 0000 Signed Impressions: Service Date/Time: August 21:22 - CONCLUSION: 1. Bilateral calcified plaque and approximately 70%% stenoses of the proximal internal carotid arteries bilaterally. 2. High-grade stenosis of right external carotid artery at its origin. Lamonte Bellamy MD Carotid Artery Ultrasound 09/11/17 0000 Signed Impressions: Service Date/Time: Sunday, September 10, 2017 14:53 - CONCLUSION: 1. Significant calcified plaque in both carotid systems. 2. High-grade stenosis in the proximal right ICA greater than 70%%. 3. But severe stenosis in the proximal left ICA in the 50-69%% range. 4. Antegrade flow both vertebral arteries. Aditya Whitehead MD (Dax Garcia MD) Plan Plan Remarks cont neuro checks cont nonsurgical mgt nonchemical dvt prophylaxis in view of ICH protonix for stress ulcer proph therapy and rehab efforts (Jsesy Contreras) Attending Statement Discussed with her . Continue neuro checks. Continue nonoperative treatment Subdural Hematoma. Continue non surgical management. Follow up brain stable Acute respiratory failure. wean Ventilator. Continue aggressive pulmonary toilette, nasotracheal suction, and breathing treatments with nebulizers. Nutrition. tube feedings acetaminophen/cooling blanket as needed for temperature greater than 100.4 Status post valve replacement. Hold anticoagulation Renal: - butler - strict i/o's Renal. monitor closely urine output, BUN and creatinine Butler in place. Monitor intake and output. Monitor electrolytes and replace as indicated per ICU electrolyte replacement protocol. ENDO: Monitor bedside glucose and initiate low-dose insulin sliding scale as indicated for glucose greater than 180 central venous line A-line insertion for hemodynamic monitoring Infectious disease. monitor for signs of infection Protonix for stress ulcer prophylaxis Ulises hose and SCD's for DVT prophylaxis. The exam, history, and the medical decision-making described in the above note were completed with the assistance of the mid-level provider. I reviewed and agree with the findings presented. I attest that I had a [id number] encounter with the patient on the same day, and personally performed and documented my assessment and findings in the medical record. (Dax Garcia MD) Jessy Contreras Sep 12, 2017 13:05 Dax Garcia MD Sep 12, 2017 17:05
[2017-09-12] MEDS ORDERED: clonazePAM 0.5 MG TAB PO PRN (17:15)
--- NOTE | 2017-09-12 18:08 | MB ---
cc: TOMMIE GALINDO MD DATE OF CONSULTATION 09/12/17 REASON FOR CONSULTATION For evaluation for possible electrophysiology study. HISTORY OF PRESENT ILLNESS Mrs. Mercado is a 67-year-old female with history of breast cancer, hypertension, hyperlipidemia, status post TAVR, congestive heart failure who was admitted due to fall. The son referred Mrs. Mercado was going up the stairs and missed one of the stairs and fall on the floor. She has neck trauma as well as head trauma. She was brought to the emergency room where she was evaluated. ALLERGIES None reported. SOCIAL HISTORY Negative for smoking and drinking. FAMILY HISTORY Noncontributory to her current medical condition. MEDICATIONS 1. Keppra. 2. Vasotec. 3. Klonopin. 4. MiraLax 5. BuSpar. 6. Percocet. 7. Lisinopril. 8. Metoprolol. 9. Aldactone. REVIEW OF SYSTEMS The patient referred no chest pain, no chest discomfort. She referred headache and neck pain. PHYSICAL EXAMINATION GENERAL: Alert, not completely oriented. VITAL SIGNS: Blood pressure on evaluation 140/64, pulse 84, respiratory rate 18. LUNGS: Ventilated. CARDIOVASCULAR: S1, S2, no gallop or murmur. ABDOMEN: Soft. No mass. EXTREMITIES: no edema. NECK: Some bruising. CARDIOLOGY STUDIES Electrocardiogram - sinus rhythm. No acute ST and T-wave changes. LABORATORY DATA Hemoglobin 9.8, white blood cell 8.7, potassium 3.0, creatinine is 0.50, INR 1.2. IMAGING STUDIES Head CT - subdural hematoma. ASSESSMENT AND RECOMMENDATIONS Mrs. Mercado is stable but disoriented. No AV block. No tachycardia. The fall happened because she missed a step. I am not sure this is a rhythm issue, but at this point my recommendation is observation. When Mrs. Mercado is stable, I will proceed with an electrophysiology study if necessary. Tommie Galindo MD /SA /5:43 PM /5:52 PM
[2017-09-12] MEDS: POLYETHYLENE GLYCOL 17 GM PKG PO SCH (18:44)
[2017-09-12] MEDS: traZODone HCL 50 MG TAB PO SCH (21:33)
[2017-09-12] MEDS: levETIRAcetam 500 MG TAB PO SCH (21:34)
[2017-09-13] VITALS (7 sets, daily range): BP systolic 164–199; BP diastolic 73–89; PULSE 64–79; RESP 18; TEMP 97.4–99.2; O2SAT 90–95
[2017-09-13] MEDS: ENALAPRILAT 1.25 MG/ML VIAL IV PUSH PRN ×3 (00:30→22:07)
[2017-09-13] MEDS: oxyCODONE/ACETAMINOPHEN 10 MG/325 MG TAB PO PRN ×4 (04:24→18:32)
[2017-09-13] MEDS: METOPROLOL TARTRATE 50 MG TAB PO SCH (08:27)
[2017-09-13] MEDS: MORPHINE SULFATE 30 MG CONTROLLED RELEASE TAB PO SCH (08:27)
[2017-09-13] MEDS: levETIRAcetam 500 MG TAB PO SCH ×2 (08:27→22:02)
[2017-09-13] MEDS: VENLAFAXINE HCL XR 75 MG CAP PO SCH (08:27)
[2017-09-13] MEDS: busPIRone HCL 5 MG TAB PO SCH ×3 (08:27→17:37)
[2017-09-13] MEDS: SPIRONOLACTONE 25 MG TAB PO SCH (08:27)
[2017-09-13] MEDS: LISINOPRIL 10 MG TAB PO SCH (08:28)
[2017-09-13] MEDS: DOCUSATE SODIUM 50 MG/SENNA 8.6 MG TAB PO SCH ×2 (08:28→22:02)
[2017-09-13] MEDS: POLYETHYLENE GLYCOL 17 GM PKG PO SCH (08:28)
[2017-09-13 10:16] LABS: AUTOMATED NEUTROPHIL # 6.2 TH/MM3 (1.8-7.7); BASOPHIL % 0.3 % (0.0-2.0); EOSINOPHIL # 0.1 TH/MM3 (0-0.4); EOSINOPHIL % 1.4 % (0.0-4.0); HEMATOCRIT 31.1 % (35.0-46.0); LYMPHOCYTE # 0.7 TH/MM3 (1.0-4.8); MEAN CELL VOLUME 98.3 FL (80.0-100.0); MEAN CORPUSCULAR HGB CONC 32.6 % (32.0-36.0); MONO % 10.2 % (0.0-8.0); NEUT % 79.1 % (16.0-70.0); PLATELET COUNT 66 TH/MM3 (150-450); RED BLOOD COUNT 3.16 MIL/MM3 (4.00-5.30); RED CELL DISTRIBUTION WIDTH 15.4 % (11.6-17.2); WHITE BLOOD COUNT 7.9 TH/MM3 (4.0-11.0)
[2017-09-13 10:23] LABS: HEMO FLAGS AUTO DIFF
[2017-09-13 10:57] LABS: KERATOCYTES OCC (NORMAL); PLATELET ESTIMATE SMEAR LOW (NORMAL); PLATELET MORPHOLOGY ENLARGED (NORMAL); SCAN/DIFF AUTO DIFF CONFIRMED
[2017-09-13 11:03] LABS: BICARBONATE 26.4 MEQ/L (21.0-32.0); POTASSIUM 3.9 MEQ/L (3.5-5.1)
[2017-09-13] MEDS ORDERED: OXYC1TAB63 PO (12:01)
[2017-09-13] MEDS ORDERED: DEXAMETHASONE SOD PHOS 4 MG/ML VIAL IV PUSH ONE (12:45)
[2017-09-13] MEDS ORDERED: BISACODYL 10 MG SUPP RECTAL ONE (13:15)
--- NOTE | 2017-09-13 13:25 | HHI.DS ---
Discharge Summary Admission Date Sep 09, 2017 at 01:49 Discharge Date: Sep 13, 2017 Admitting Diagnosis Intracranial hemorrhage, thrombocytopenia, anemia (1) Carotid artery stenosis ICD Codes: I65.29 - Occlusion and stenosis of unspecified carotid artery (2) Subdural hemorrhage ICD Codes: I62.00 - Nontraumatic subdural hemorrhage, unspecified (3) Fall ICD Codes: W19.XXXA - Unspecified fall, initial encounter Diagnosis: Principal Brief History S/P Trauma: Fall CBC/BMP: 09/13/17 0835 09/13/17 0835 Significant Findings Laboratory Tests Test 09/10/17 14:47 09/10/17 19:50 09/10/17 22:30 09/11/17 05:20 Red Blood Count 2.98 MIL/MM3 (4.00-5.30) Hemoglobin 9.8 GM/DL (11.6-15.3) Hematocrit 29.4 % (35.0-46.0) Platelet Count 76 TH/MM3 (150-450) Neutrophils (%) (Auto) 83.8 % (16.0-70.0) Lymphocytes (%) (Auto) 7.2 % (9.0-44.0) Monocytes (%) (Auto) 8.6 % (0.0-8.0) Lymphocytes # (Auto) 0.6 TH/MM3 (1.0-4.8) Blood Urea Nitrogen 5 MG/DL (7-18) Random Glucose 133 MG/DL (74-106) Total Protein 5.5 GM/DL (6.4-8.2) Calcium Level 7.3 MG/DL (8.5-10.1) Potassium Level 3.0 MEQ/L (3.5-5.1) Protein Corrected Calcium 8.2 MG/DL (8.5-10.1) Test 09/11/17 07:05 09/12/17 05:00 09/12/17 06:40 09/13/17 08:35 Arterial Blood pH 7.46 (7.380-7.420) Arterial Blood Partial Pressure CO2 33 mmHg (38-42) Blood Gas Hemoglobin 9.9 G/DL (12.0-16.0) White Blood Count 11.1 TH/MM3 (4.0-11.0) Red Blood Count 3.15 MIL/MM3 (4.00-5.30) 3.16 MIL/MM3 (4.00-5.30) Hemoglobin 10.3 GM/DL (11.6-15.3) 10.1 GM/DL (11.6-15.3) Hematocrit 31.1 % (35.0-46.0) 31.1 % (35.0-46.0) Platelet Count 76 TH/MM3 (150-450) 66 TH/MM3 (150-450) Neutrophils (%) (Auto) 83.7 % (16.0-70.0) 79.1 % (16.0-70.0) Lymphocytes (%) (Auto) 5.9 % (9.0-44.0) Monocytes (%) (Auto) 9.9 % (0.0-8.0) 10.2 % (0.0-8.0) Neutrophils # (Auto) 9.3 TH/MM3 (1.8-7.7) Lymphocytes # (Auto) 0.7 TH/MM3 (1.0-4.8) 0.7 TH/MM3 (1.0-4.8) Monocytes # (Auto) 1.1 TH/MM3 (0-0.9) Platelet Estimate LOW (NORMAL) LOW (NORMAL) Blood Urea Nitrogen 6 MG/DL (7-18) Calcium Level 7.9 MG/DL (8.5-10.1) Urine Ketones TRACE mg/dL (NEG) Urine Bacteria RARE /hpf (NONE) Mean Platelet Volume 12.2 FL (7.0-11.0) Platelet Morphology Comment ENLARGED (NORMAL) Keratocytes OCC (NORMAL) Creatinine 0.43 MG/DL (0.50-1.00) Imaging Last Impressions Head CT 09/11/17 0800 Signed Impressions: Service Date/Time: August 06:13 - CONCLUSION: Stable size to the multifocal right subdural hematomas and intraventricular blood. Amador Feldman MD Chest X-Ray 09/11/17 0600 Signed Impressions: Service Date/Time: August 02:42 - CONCLUSION: Improving aeration of the lower lungs with some mild residual interstitial prominence in the left mid and lower lung. Amador Feldman MD Neck CTA 09/11/17 0000 Signed Impressions: Service Date/Time: August 21:22 - CONCLUSION: 1. Bilateral calcified plaque and approximately 70%% stenoses of the proximal internal carotid arteries bilaterally. 2. High-grade stenosis of right external carotid artery at its origin. Lamonte Bellamy MD Carotid Artery Ultrasound 09/11/17 0000 Signed Impressions: Service Date/Time: Sunday, September 10, 2017 14:53 - CONCLUSION: 1. Significant calcified plaque in both carotid systems. 2. High-grade stenosis in the proximal right ICA greater than 70%%. 3. But severe stenosis in the proximal left ICA in the 50-69%% range. 4. Antegrade flow both vertebral arteries. Aidtya Whitehead MD Pelvis X-Ray 09/09/17123 Signed Impressions: Service Date/Time: Saturday, September 09, 2017 01:22 - CONCLUSION: No fracture seen. Amorphous calcification superior to the left greater trochanter is of uncertain significance. CT is pending. Amador Feldman MD Maxillofacial CT 09/09/17123 Signed Impressions: Service Date/Time: Saturday, September 09, 2017 01:32 - CONCLUSION: 1. No facial bone fracture seen. 2. Mild ethmoid sinus disease. Amador Feldman MD Chest CT 09/09/17123 Signed Impressions: Service Date/Time: Saturday, September 09, 2017 01:44 - CONCLUSION: 1. No evidence pneumothorax. 2. Bibasilar atelectasis. 3. Focal 12 mm opacity lateral left mid lung may represent pulmonary contusion, focal infiltrate, or mass. Recommend followup scan to assure resolution. Amador Feldman MD Cervical Spine CT 09/09/17123 Signed Impressions: Service Date/Time: Saturday, September 09, 2017 01:32 - CONCLUSION: No evidence of compression deformity or spondylolisthesis. Amador Feldman MD Abdomen/Pelvis CT 09/09/17123 Signed Impressions: Service Date/Time: Saturday, September 09, 2017 01:44 - CONCLUSION: Negative trauma CT abdomen/pelvis with contrast. Amador Feldman MD PE at Discharge GENERAL: 67-year-old well-nourished, well developed female lying in bed with soft cervical collar in place. SKIN: Warm and dry. Right facial ecchymosis noted. HEAD: Normocephalic. EYES: PERRL. ENT: No nasal bleeding or discharge. Mucous membranes pink and moist. NECK: Trachea midline. No JVD. CARDIOVASCULAR: Regular rate and rhythm. RESPIRATORY: No accessory muscle use. Lungs clear and diminished in bases to auscultation. Breath sounds equal bilaterally. GASTROINTESTINAL: Abdomen soft, non-tender, nondistended. + BS. MUSCULOSKELETAL: Extremities without cyanosis, +2 RUE edema. MAEW, + perfused NEUROLOGICAL: Awake and alert. Normal speech. Hospital Course [place]: Fell forward at home striking her forehead. CT brain neg at [facility] and patient signed out AMA. Patient fell again at home striking her posterior head and presented with intractable N/V at [facility]. Transferred for trauma services. On Plavix and ASA for AVR. INJURIES: RIGHT SDH w/ shift Lung mass vs. pulmonary contusion PMHx: Breast CA. Hypothyriod. CHF. TAVR (08/15) on Plavix, HLD, GERD. HTN 09/08: Intubated at [facility]. 09/10: Extubated RIGHT SDH w/ shift Neurosurgery consulted, follow-up as outpatient Supportive care Neuro checks Keppra Pain control Postconcussive education Decadron 2 mg IV 1 today for headache LEFT pulmonary contusion, respiratory failure Supportive care 09/08: Intubated at [facility]. 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 Polo as outpatient Plavix and ASA Follow-up with PCP in 1 week Plan of care discussed with patient and at bedside. Patient is clear from trauma surgery standpoint to safely discharge inpatient rehabilitation. Pt Condition on Discharge: Stable Discharge Disposition: Rehab Inpatient Discharge Instructions DIET: Follow Instructions for: As Tolerated, No Restrictions Speech Therapy-Diet Recommends: Mechanical Soft Activities you can perform: Regular-No Restrictions Activities to Avoid: Concussion Sports, Strenuous Activity, Driving Other Activity Instructions: Wear sling to right arm for comfort. Wear soft cervical collar as needed for comfort. Emerald Burrell Sep 13, 2017 13:25
[2017-09-13] MEDS: CLOPIDOGREL 75 MG TAB PO SCH (14:30)
[2017-09-13] MEDS: traZODone HCL 50 MG TAB PO SCH (22:02)
[2017-09-13] MEDS: MORPHINE SULFATE 2 MG/ML INJ IV PUSH PRN (22:03)
[2017-09-14] VITALS: BP 164/73; PULSE 71; PULSE 73; RESP 18; TEMP 97.9; O2SAT 96
[2017-09-14 04:00] VITALS: BP 178/74; PULSE 65; RESP 18; TEMP 97; O2SAT 97
[2017-09-14] MEDS: oxyCODONE/ACETAMINOPHEN 10 MG/325 MG TAB PO PRN ×2 (04:36→16:25)
[2017-09-14] MEDS: MORPHINE SULFATE 2 MG/ML INJ IV PUSH PRN (06:04)
[2017-09-14 08:00] VITALS: BP 186/78; PULSE 67; RESP 18; TEMP 98.1; O2SAT 95
[2017-09-14] MEDS: DOCUSATE SODIUM 50 MG/SENNA 8.6 MG TAB PO SCH (08:14)
[2017-09-14] MEDS: VENLAFAXINE HCL XR 75 MG CAP PO SCH (08:14)
[2017-09-14] MEDS: METOPROLOL TARTRATE 50 MG TAB PO SCH (08:14)
[2017-09-14] MEDS: CLOPIDOGREL 75 MG TAB PO SCH (08:15)
[2017-09-14] MEDS: levETIRAcetam 500 MG TAB PO SCH (08:15)
[2017-09-14] MEDS: MORPHINE SULFATE 30 MG CONTROLLED RELEASE TAB PO SCH (08:15)
[2017-09-14] MEDS: busPIRone HCL 5 MG TAB PO SCH ×3 (08:15→17:07)
[2017-09-14] MEDS: LISINOPRIL 10 MG TAB PO SCH (08:15)
[2017-09-14] MEDS: SPIRONOLACTONE 25 MG TAB PO SCH (08:15)
[2017-09-14] MEDS: POLYETHYLENE GLYCOL 17 GM PKG PO SCH (08:16)
[2017-09-14 11:00] VITALS: O2SAT 97
--- NOTE | 2017-09-14 11:57 | HHI.PR ---
Subjective Subjective Notes OOB in chair Still with complaints of BERG Objective Vitals/I&O Vital Signs Date Time Temp Pulse Resp B/P (MAP) Pulse Ox O2 Delivery O2 Flow Rate FiO2 09/14/17 11:00 97 21 09/14/17 08:00 98.1 67 18 186/78 (114) 09/12/17 20:16 Room Air 09/12/17 14:30 2.00 Labs Laboratory Tests Test 09/09/17 01:25 09/09/17 10:14 09/09/17 11:20 09/09/17 19:30 Bedside Hemoglobin 8.5 G/DL Bedside Hematocrit 25.0 % Prothrombin Time 12.5 SEC Prothromb Time International Ratio 1.2 RATIO Activated Partial Thromboplast Time 22.4 SEC Fibrinogen 301 mg/dL Bedside Sodium 132 MMOL/L Bedside Potassium 3.4 MMOL/L Bedside Chloride 88 MMOL/L Bedside Blood Urea Nitrogen 4 MG/DL Bedside Creatinine 0.7 MG/DL Bedside Glucose 150 MG/DL Blood Gas Ventilator Setting Blood Urea Nitrogen 4 MG/DL Creatinine 0.53 MG/DL Random Glucose 87 MG/DL Total Protein 5.4 GM/DL Albumin 2.8 GM/DL Calcium Level 7.5 MG/DL Alkaline Phosphatase 54 U/L Aspartate Amino Transf (AST/SGOT) 30 U/L Alanine Aminotransferase (ALT/SGPT) 19 U/L Total Bilirubin 1.4 MG/DL Sodium Level 135 MEQ/L Potassium Level 3.0 MEQ/L Chloride Level 100 MEQ/L Carbon Dioxide Level 26.5 MEQ/L Phosphorus Level 1.7 MG/DL Test 09/10/17 22:30 09/11/17 05:20 09/11/17 07:05 09/12/17 05:00 Serum Osmolality 286 MOSM/KG Protein Corrected Calcium 8.2 MG/DL Blood Urea Nitrogen 5 MG/DL Creatinine 0.50 MG/DL Random Glucose 133 MG/DL Total Protein 5.5 GM/DL Calcium Level 7.3 MG/DL Sodium Level 140 MEQ/L Potassium Level 3.0 MEQ/L Chloride Level 107 MEQ/L Carbon Dioxide Level 23.5 MEQ/L Blood Gas Puncture Site LT RADIAL Blood Gas Patient Temperature 98.6 Blood Gas HCO3 23 mmol/L Blood Gas Base Excess -0.8 mmol/L Blood Gas Oxygen Saturation 92 % Arterial Blood pH 7.46 Arterial Blood Partial Pressure CO2 33 mmHg Arterial Blood Partial Pressure O2 68 mmHg Arterial Blood Oxygen Content 12.9 Vol % Arterial Blood Carboxyhemoglobin 1.8 % Arterial Blood Methemoglobin 0.8 % Blood Gas Hemoglobin 9.9 G/DL Oxygen Delivery Device ROOM AIR Blood Gas Inspired Oxygen 21 % Red Cell Morphology Comment NORMAL Test 09/12/17 06:40 09/13/17 08:35 Urine Color COLORLESS Urine Turbidity CLEAR Urine pH 5.0 Urine Specific [place] 1.006 Urine Protein NEG mg/dL Urine Glucose (UA) NEG mg/dL Urine Ketones TRACE mg/dL Urine Occult Blood NEG Urine Nitrite NEG Urine Bilirubin NEG Urine Urobilinogen LESS THAN 2.0 MG/DL Urine Leukocyte Esterase NEG Urine RBC 1 /hpf Urine Bacteria RARE /hpf Microscopic Urinalysis Comment CULT NOT INDICATED White Blood Count 7.9 TH/MM3 Red Blood Count 3.16 MIL/MM3 Hemoglobin 10.1 GM/DL Hematocrit 31.1 % Mean Corpuscular Volume 98.3 FL Mean Corpuscular Hemoglobin 32.0 PG Mean Corpuscular Hemoglobin Concent 32.6 % Red Cell Distribution Width 15.4 % Platelet Count 66 TH/MM3 Mean Platelet Volume 12.2 FL Neutrophils (%) (Auto) 79.1 % Lymphocytes (%) (Auto) 9.0 % Monocytes (%) (Auto) 10.2 % Eosinophils (%) (Auto) 1.4 % Basophils (%) (Auto) 0.3 % Neutrophils # (Auto) 6.2 TH/MM3 Lymphocytes # (Auto) 0.7 TH/MM3 Monocytes # (Auto) 0.8 TH/MM3 Eosinophils # (Auto) 0.1 TH/MM3 Basophils # (Auto) 0.0 TH/MM3 CBC Comment AUTO DIFF Differential Comment AUTO DIFF CONFIRMED Platelet Estimate LOW Platelet Morphology Comment ENLARGED Keratocytes OCC Blood Urea Nitrogen 9 MG/DL Creatinine 0.43 MG/DL Random Glucose 77 MG/DL Calcium Level 8.5 MG/DL Sodium Level 136 MEQ/L Potassium Level 3.9 MEQ/L Chloride Level 102 MEQ/L Carbon Dioxide Level 26.4 MEQ/L Anion Gap 8 MEQ/L Estimat Glomerular Filtration Rate 147 ML/MIN Radiology Last Impressions Head CT 09/11/17 0800 Signed Impressions: Service Date/Time: August 06:13 - CONCLUSION: Stable size to the multifocal right subdural hematomas and intraventricular blood. Amador Feldman MD Chest X-Ray 09/11/17 0600 Signed Impressions: Service Date/Time: August 02:42 - CONCLUSION: Improving aeration of the lower lungs with some mild residual interstitial prominence in the left mid and lower lung. Amador Feldman MD Neck CTA 09/11/17 0000 Signed Impressions: Service Date/Time: August 21:22 - CONCLUSION: 1. Bilateral calcified plaque and approximately 70%% stenoses of the proximal internal carotid arteries bilaterally. 2. High-grade stenosis of right external carotid artery at its origin. Lamonte Bellamy MD Carotid Artery Ultrasound 09/11/17 0000 Signed Impressions: Service Date/Time: Sunday, September 10, 2017 14:53 - CONCLUSION: 1. Significant calcified plaque in both carotid systems. 2. High-grade stenosis in the proximal right ICA greater than 70%%. 3. But severe stenosis in the proximal left ICA in the 50-69%% range. 4. Antegrade flow both vertebral arteries. Aditya Whitehead MD Pelvis X-Ray 09/09/17123 Signed Impressions: Service Date/Time: Saturday, September 09, 2017 01:22 - CONCLUSION: No fracture seen. Amorphous calcification superior to the left greater trochanter is of uncertain significance. CT is pending. Amador Feldman MD Maxillofacial CT 09/09/17123 Signed Impressions: Service Date/Time: Saturday, September 09, 2017 01:32 - CONCLUSION: 1. No facial bone fracture seen. 2. Mild ethmoid sinus disease. Amador Feldman MD Chest CT 09/09/17123 Signed Impressions: Service Date/Time: Saturday, September 09, 2017 01:44 - CONCLUSION: 1. No evidence pneumothorax. 2. Bibasilar atelectasis. 3. Focal 12 mm opacity lateral left mid lung may represent pulmonary contusion, focal infiltrate, or mass. Recommend followup scan to assure resolution. Amador Feldman MD Cervical Spine CT 09/09/17123 Signed Impressions: Service Date/Time: Saturday, September 09, 2017 01:32 - CONCLUSION: No evidence of compression deformity or spondylolisthesis. Amador Feldman MD Abdomen/Pelvis CT 09/09/174 Signed Impressions: Service Date/Time: Saturday, September 09, 2017 01:44 - CONCLUSION: Negative trauma CT abdomen/pelvis with contrast. Amador Feldman MD Disinhibition Score: 21.00 Aggression Score: 14.00 Lability Score: 14.00 Agitated Behavior Total Score: 18 Narrative Exam GENERAL: 67-year-old well-nourished, well developed female OOB in chair working with OT. SKIN: Warm and dry. Right facial ecchymosis noted. HEAD: Normocephalic. EYES: PERRL. ENT: No nasal bleeding or discharge. Mucous membranes pink and moist. NECK: Trachea midline. No JVD. CARDIOVASCULAR: Regular rate and rhythm. RESPIRATORY: No accessory muscle use. Lungs clear and diminished in bases to auscultation. Breath sounds equal bilaterally. GASTROINTESTINAL: Abdomen soft, non-tender, nondistended. + BS. MUSCULOSKELETAL: Extremities without cyanosis, +2 RUE edema. MAEW, + perfused NEUROLOGICAL: Awake and alert. Normal speech. A/P Problem List: (1) Carotid artery stenosis ICD Codes: I65.29 - Occlusion and stenosis of unspecified carotid artery (2) Subdural hemorrhage ICD Codes: I62.00 - Nontraumatic subdural hemorrhage, unspecified (3) Fall ICD Codes: W19.XXXA - Unspecified fall, initial encounter Assessment and Plan J[place]: Fell forward at home striking her forehead. CT brain neg at [facility] and patient signed out AMA. Patient fell again at home striking her posterior head and presented with intractable N/V at [facility]. Transferred for trauma services. On Plavix and ASA for AVR. INJURIES: RIGHT SDH w/ shift Lung mass vs. pulmonary contusion PMHx: Breast CA. Hypothyriod. CHF. TAVR (08/15) on Plavix, HLD, GERD. HTN 09/08: Intubated at [facility]. 09/10: Extubated RIGHT SDH w/ shift Neurosurgery consulted, follow-up as outpatient Supportive care Neuro checks Pain control Postconcussive education PRN Imitrex for BERG LEFT pulmonary contusion, respiratory failure Supportive care 09/08: Intubated at [facility]. 09/10: Extubated Pulmonary toileting Duo nebs Afebrile OOB Hx AVR TAVR 07/2017 [place] Operator consulted, F/U outpatient Home meds resumed Plavix and aspirin resumed Chronic right lymphedema S/P TAVR RUE 07/2017, hx right Breast CA Supportive care Sling for comfort Carotid artery stenosis Vascular surgery consult 09/12: CTA- BILAT 70% carotid stenosis Follow-up with Dr. Polo as outpatient Plavix and ASA Plan of care discussed with patient, and RN at bedside. Patient is clear from trauma surgery standpoint to safely discharge inpatient rehabilitation or SNF once accepted by insurance. Problem Qualifiers (1) Carotid artery stenosis: Qualified Codes: I65.23 - Occlusion and stenosis of bilateral carotid arteries (2) Fall: Qualified Codes: W19.XXXA - Unspecified fall, initial encounter Emerald Burrell CHECKER IN Sep 14, 2017 11:56
[2017-09-14 12:00] VITALS: BP 181/83; PULSE 60; RESP 18; TEMP 98.4; O2SAT 98
[2017-09-14] MEDS: ENALAPRILAT 1.25 MG/ML VIAL IV PUSH PRN (14:02)
[2017-09-14 16:00] VITALS: BP 183/84; PULSE 61; RESP 18; TEMP 98.2; O2SAT 95
[2017-09-14] MEDS ORDERED: LISI40TA PO (16:14)
[2017-09-14] MEDS ORDERED: SUMAtriptan SUCCINATE 25 MG TAB PO PRN (16:15)
[2017-09-14] MEDS ORDERED: TRAZ50TA12 PO (16:18)
[2017-09-14] MEDS ORDERED: IMIT25TA PO (16:18)
--- NOTE | 2017-09-14 16:21 | HHI.DS ---
Discharge Summary Admission Date Sep 09, 2017 at 01:49 Discharge Date: Sep 14, 2017 Admitting Diagnosis Intracranial hemorrhage, thrombocytopenia, anemia (1) Carotid artery stenosis ICD Codes: I65.29 - Occlusion and stenosis of unspecified carotid artery (2) Subdural hemorrhage ICD Codes: I62.00 - Nontraumatic subdural hemorrhage, unspecified (3) Fall ICD Codes: W19.XXXA - Unspecified fall, initial encounter Diagnosis: Principal Brief History S/P Trauma: Fall CBC/BMP: 09/13/17 0835 09/13/17 0835 Significant Findings Laboratory Tests Test 09/12/17 05:00 09/12/17 06:40 09/13/17 08:35 White Blood Count 11.1 TH/MM3 (4.0-11.0) Red Blood Count 3.15 MIL/MM3 (4.00-5.30) 3.16 MIL/MM3 (4.00-5.30) Hemoglobin 10.3 GM/DL (11.6-15.3) 10.1 GM/DL (11.6-15.3) Hematocrit 31.1 % (35.0-46.0) 31.1 % (35.0-46.0) Platelet Count 76 TH/MM3 (150-450) 66 TH/MM3 (150-450) Neutrophils (%) (Auto) 83.7 % (16.0-70.0) 79.1 % (16.0-70.0) Lymphocytes (%) (Auto) 5.9 % (9.0-44.0) Monocytes (%) (Auto) 9.9 % (0.0-8.0) 10.2 % (0.0-8.0) Neutrophils # (Auto) 9.3 TH/MM3 (1.8-7.7) Lymphocytes # (Auto) 0.7 TH/MM3 (1.0-4.8) 0.7 TH/MM3 (1.0-4.8) Monocytes # (Auto) 1.1 TH/MM3 (0-0.9) Platelet Estimate LOW (NORMAL) LOW (NORMAL) Blood Urea Nitrogen 6 MG/DL (7-18) Calcium Level 7.9 MG/DL (8.5-10.1) Urine Ketones TRACE mg/dL (NEG) Urine Bacteria RARE /hpf (NONE) Mean Platelet Volume 12.2 FL (7.0-11.0) Platelet Morphology Comment ENLARGED (NORMAL) Keratocytes OCC (NORMAL) Creatinine 0.43 MG/DL (0.50-1.00) Imaging Last Impressions Head CT 09/11/17 0800 Signed Impressions: Service Date/Time: August 06:13 - CONCLUSION: Stable size to the multifocal right subdural hematomas and intraventricular blood. Amador Feldman MD Chest X-Ray 09/11/17 0600 Signed Impressions: Service Date/Time: August 02:42 - CONCLUSION: Improving aeration of the lower lungs with some mild residual interstitial prominence in the left mid and lower lung. Amador Feldman MD Neck CTA 09/11/17 0000 Signed Impressions: Service Date/Time: August 21:22 - CONCLUSION: 1. Bilateral calcified plaque and approximately 70%% stenoses of the proximal internal carotid arteries bilaterally. 2. High-grade stenosis of right external carotid artery at its origin. Lamonte Bellamy MD Carotid Artery Ultrasound 09/11/17 0000 Signed Impressions: Service Date/Time: Sunday, September 10, 2017 14:53 - CONCLUSION: 1. Significant calcified plaque in both carotid systems. 2. High-grade stenosis in the proximal right ICA greater than 70%%. 3. But severe stenosis in the proximal left ICA in the 50-69%% range. 4. Antegrade flow both vertebral arteries. Aditya Whitehead MD Pelvis X-Ray 09/09/17 0124 Signed Impressions: Service Date/Time: Saturday, September 09, 2017 01:22 - CONCLUSION: No fracture seen. Amorphous calcification superior to the left greater trochanter is of uncertain significance. CT is pending. Amador Feldman MD Maxillofacial CT 09/09/17123 Signed Impressions: Service Date/Time: Saturday, September 09, 2017 01:32 - CONCLUSION: 1. No facial bone fracture seen. 2. Mild ethmoid sinus disease. Amador Feldman MD Chest CT 09/09/17 012 Signed Impressions: Service Date/Time: Saturday, September 09, 2017 01:44 - CONCLUSION: 1. No evidence pneumothorax. 2. Bibasilar atelectasis. 3. Focal 12 mm opacity lateral left mid lung may represent pulmonary contusion, focal infiltrate, or mass. Recommend followup scan to assure resolution. Amador Feldman MD Cervical Spine CT 09/09/174 Signed Impressions: Service Date/Time: Saturday, September 09, 2017 01:32 - CONCLUSION: No evidence of compression deformity or spondylolisthesis. Amador Feldman MD Abdomen/Pelvis CT 09/09/174 Signed Impressions: Service Date/Time: Saturday, September 09, 2017 01:44 - CONCLUSION: Negative trauma CT abdomen/pelvis with contrast. Amador Feldman MD PE at Discharge GENERAL: 67-year-old well-nourished, well developed female OOB in chair working with OT. SKIN: Warm and dry. Right facial ecchymosis noted. HEAD: Normocephalic. EYES: PERRL. ENT: No nasal bleeding or discharge. Mucous membranes pink and moist. NECK: Trachea midline. No JVD. CARDIOVASCULAR: Regular rate and rhythm. RESPIRATORY: No accessory muscle use. Lungs clear and diminished in bases to auscultation. Breath sounds equal bilaterally. GASTROINTESTINAL: Abdomen soft, non-tender, nondistended. + BS. MUSCULOSKELETAL: Extremities without cyanosis, +2 RUE edema. MAEW, + perfused NEUROLOGICAL: Awake and alert. Normal speech. Hospital Course [place]: Fell forward at home striking her forehead. CT brain neg at [facility] and patient signed out AMA. Patient fell again at home striking her posterior head and presented with intractable N/V at [facility]. Transferred for trauma services. On Plavix and ASA for AVR. INJURIES: RIGHT SDH w/ shift Lung mass vs. pulmonary contusion PMHx: Breast CA. Hypothyriod. CHF. TAVR (08/15) on Plavix, HLD, GERD. HTN 09/08: Intubated at [facility]. 09/10: Extubated RIGHT SDH w/ shift Neurosurgery consulted, follow-up as outpatient Supportive care Neuro checks Pain control Postconcussive education PRN Imitrex for BERG LEFT pulmonary contusion, respiratory failure Supportive care 09/08: Intubated at [facility]. 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 Polo as outpatient Plavix and ASA Plan of care discussed with patient, and RN at bedside. Patient is clear from trauma surgery standpoint to safely discharge to SNF once accepted by insurance. Pt Condition on Discharge: Stable Discharge Disposition: Discharge to SNF Discharge Instructions DIET: Follow Instructions for: As Tolerated, No Restrictions Speech Therapy-Diet Recommends: Mechanical Soft Activities you can perform: Regular-No Restrictions Activities to Avoid: Concussion Sports, Strenuous Activity, Driving Other Activity Instructions: Wear sling to right arm for comfort. Wear soft cervical collar as needed for comfort. Emerald Burrell Sep 14, 2017 16:21
[2017-09-14] MEDS ORDERED: LISINOPRIL 10 MG TAB PO ONE (17:00)
--- NOTE | 2017-09-15 08:12 | PD.NP.DS ---
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 The patient initially was admitted to [facility] and left AMA and then fell again, subsequently was admitted . Head CT showed SDH with shift. She is referred for baseline neurobehavioral status examination per trauma protocol to assess cognitive, behavioral and emotional aspects of the injury and to provide treatment recommendations. She was [facility] to SN[facility] on 09/14/2017. Past Medical History: Please refer to the patient's history and physical for information concerning the patient's past medical, surgical, and psychiatric histories. Education/Learning Hx: The patient completed high school years of education. There is no report of learning difficulties, grade repetitions or behavioral difficulties. The patient is retired. The patient is . The patient lives in [place], [place]. Premorbid Cognitive, Emotional and Behavioral Status: Stable. The patient has high school years of education and is retired. The patient has prior psychiatric difficulties, as described above. Substance abuse history is unremarkable. Behavioral Reactions of Patient and Family/Support System: Stable. The patients family is experiencing ongoing issues of adjustment given the nature of the injury, and this aspect of recovery will require ongoing monitoring. Emotional/Behavioral Status of Patient and Family/Support System: Stable. Pertinent issues, if appropriate to this patients clinical care, are described in detail above. Treatment Interventions: During the course of their acute care stay, this patient and their family/ support system were provided information concerning the neuropsychological aspects of the injury, education regarding course of recovery, and psychological support in the form of counseling with the person served and the family/support system as documented in the neuropsychology service progress notes, as deemed clinically appropriate. Current, Cognitive, Emotional and Behavioral Status: Stable. This patient has experienced a severe injury, and will be adjusting to significant cognitive, emotional and behavioral challenges going forward. Impression at Discharge: The cognitive and behavioral status of this patient meets criteria for [place] Level . Mild Neurocognitive Disorder CODE: G31.84 The above listed diagnoses are supported by the following clinical criteria: Mild Neurocognitive Disorder: This person demonstrates a significant cognitive decline from a previous level of estimated baseline performance in one or more cognitive domains (complex attention, executive functioning, learning and memory , language, perceptual-motor, or social cognition) based on the patients / informants report, further documented by todays testing results, with these cognitive deficits not interfering with the patients independence in everyday activities. Status of Family/Support System Adjustment: Stable. The patients family/ support system will experience ongoing issues of adjustment given the nature of the injury, and this aspect of the patients recovery will require ongoing monitoring. Post Acute Recommendations: It is recommended that the patient continue to be monitored for behavioral impulsivity as they continue to be early in their course of recovery. This patients neuropathological challenges may limit their reintegration into work and family life going forward, and these challenges may require specialized therapeutic skills to maximize outcome. Additionally, the patients family is experiencing ongoing issues of adjustment given the traumatic nature of the injury, and they [will need / may benefit from] ongoing psychological assistance following their discharge from acute care. Thank you for the opportunity to assist in this patients care. Juan Arechiga, Ph.D., ABPP Board Certified in Clinical Neuropsychology [employer] [place] Licensed Psychologist #[id number] Juan Arechiga PhD Sep 15, 2017 08:12
[2017-09-15] MEDS ORDERED: LISINOPRIL 20 MG TAB PO SCH (09:00)
== END 2017-09-14 19:42 | DRG 963 ==
LOC: NEPI 01:15 → EDBD 01:49 → NEDA 01:49 → N03A 02:08 → N05B 09-12 14:18
PROVIDERS: ADMIT Surgery Trauma Surgery; ATTEND Surgery Trauma Surgery
PROC: 5A1935Z Respiratory Ventilation, Less than 24 Consecutive Hours (ICD-10-PCS; principal; 2017-09-09)
PROC: 6A550Z2 Pheresis of Platelets, Single (ICD-10-PCS; 2017-09-09)
PROC: 30233N1 Transfusion of Nonautologous Red Blood Cells into Peripheral Vein, Percutaneous Approach (ICD-10-PCS; 2017-09-09)
PROC: 5A1935Z Respiratory Ventilation, Less than 24 Consecutive Hours (ICD-10-PCS; 2017-09-09)
DX: S06.5X9A Traumatic subdural hemorrhage with loss of consciousness of unspecified duration, initial encounter (principal); J96.00 Acute respiratory failure, unspecified whether with hypoxia or hypercapnia; S27.321A Contusion of lung, unilateral, initial encounter; S06.6X9A Traumatic subarachnoid hemorrhage with loss of consciousness of unspecified duration, initial encounter; F02.81 Dementia in other diseases classified elsewhere, unspecified severity, with behavioral disturbance; I11.0 Hypertensive heart disease with heart failure; I50.9 Heart failure, unspecified; D69.6 Thrombocytopenia, unspecified; S06.1X9A Traumatic cerebral edema with loss of consciousness of unspecified duration, initial encounter; I65.23 Occlusion and stenosis of bilateral carotid arteries; R29.6 Repeated falls; Z79.02 Long term (current) use of antithrombotics/antiplatelets; W18.39XA Other fall on same level, initial encounter; Y93.01 Activity, walking, marching and hiking; Y92.009 Unspecified place in unspecified non-institutional (private) residence as the place of occurrence of the external cause; Z79.82 Long term (current) use of aspirin; S51.812A Laceration without foreign body of left forearm, initial encounter; Z95.2 Presence of prosthetic heart valve; Z85.3 Personal history of malignant neoplasm of breast; K21.9 Gastro-esophageal reflux disease without esophagitis; E78.5 Hyperlipidemia, unspecified; E03.9 Hypothyroidism, unspecified; Z87.891 Personal history of nicotine dependence; F43.22 Adjustment disorder with anxiety; Z23 Encounter for immunization; G89.29 Other chronic pain; I89.0 Lymphedema, not elsewhere classified
CPT/HCPCS: 36430; 36600; 70450; 70486; 70498; 71010; 71260; 72125; 72170; 74177; 80048; 80053; 81001; 82435; 82565; 82805; 82947; 83930; 84100; 84132; 84155; 84295; 84520; 85025; 85027; 85384; 85610; 85730; 86850; 86900; 86901; 86920; 90732; 93005; 93306; 93880; 94002; 94003; 94150; 94640; 99285; J0360; J0690; J1100; J1580; J1940; J1953; J2150; J2270; J2405; J3010; J3370; J3480; J7030; J7050; L0120; P9016; P9035; Q9967